=== PATIENT | male | born 1950 | race Two or more races ===

== ENCOUNTER 2024-06-01 06:44 | Inpatient (IN) | payer OTHER, MEDICAID, MEDICARE, SELFPAY ==
[2024-06-01] VITALS (25 sets, daily range): BP systolic 108–175; BP diastolic 41–115; PULSE 57–117; RESP 13–95; TEMP 36.6–38.6; O2SAT 94–98; BMI 30.9; BMI 22.6; BMI 21.7
--- NOTE | 2024-06-01 07:15 | PD.EDADULT ---
ED General RME/HPI General Chief complaint: Flu Like Symptoms Stated complaint: CHILLS, WEAKNESS, NASAL CONGESTION Time Seen by Provider: 06/01/24 07:17 Arrival date/time: 06/01/24 06:44 Limitations: no limitations RME / HPI RME / HPI narrative: DR. FLORIAN MAIN ED EVALUATION: 74 year old male presents to the Emergency Department accompanied by his with complaint of bleeding after removal of chest dialysis catheter onset 3 days ago. Patient also mentions he has chills. Patient had a mild fever of 99.4 F orally. No vision changes. No shortness of breath. PMHx: Hypertension, diabetes, and chronic kidney disease. Dialysis M/W/F, Physical Testing Supervisor: Dr. Glez. No known allergies. Social Hx: No tobacco, alcohol, or substance use. Related Data Home Medications ?Medication ?Instructions ?Recorded ?Confirmed atorvastatin 80 mg tablet 80 mg PO QPM 04/21/23 06/01/24 ferrous sulfate 325 mg (65 mg 325 mg PO TID 04/21/23 04/21/23 iron) tablet furosemide 40 mg tablet 40 mg PO QDAY 04/21/23 06/01/24 gabapentin 300 mg capsule 300 mg PO BID 04/21/23 06/01/24 metoprolol succinate 50 mg 50 mg PO QDAY 04/21/23 06/01/24 tablet,extended release 24 hr B complex-vitamin C-folic acid PO QDAY 06/01/24 amlodipine 10 mg tablet 10 mg PO .QD 06/01/24 06/01/24 aspirin 81 mg tablet,delayed 81 mg PO QDAY 06/01/24 06/01/24 release calcium acetate(phosphat bind) 667 667 mg PO TID 06/01/24 06/01/24 mg capsule glipizide 2.5 mg tablet, extended 2.5 mg PO QAM 06/01/24 06/01/24 release 24 hr Previous Rx's ?Medication ?Instructions ?Recorded blood-glucose meter (Accu-Chek #1 ea 05/06/23 Guide Glucose Meter) insulin glargine 100 unit/mL (3 35 unit (0.35 mL) subcut QPM #15 mL 05/06/23 mL) subcutaneous pen (Lantus Solostar U-100 Insulin) insulin lispro 100 unit/mL 1 sliding scale dose subcut 05/06/23 subcutaneous pen (Admelog SoloStar USEASDIRECTD #15 mL U-100 Insulin lispro) lancets 28 gauge (Comfort EZ #100 ea 05/06/23 Lancets) pen needle, diabetic 31 gauge x #1,200 ea 05/06/23/ (BD Ultra-Fine Mini Pen Needle) blood sugar diagnostic (Accu-Chek #50 ea 05/07/23 Guide test strips) Allergies Allergy/AdvReac Type Severity Reaction Status Date / Time No Known Allergies Allergy Verified 06/01/24 06:48 Review of Systems Review of Systems Systems Reviewed: All systems reviewed, normal except as documented Narrative Review of Systems: GEN: + fever, + chills, no weight loss EYES: No discharge, no visual changes, no pain HEENT: No ear pain, no congestion, no sore throat PULM: No shortness of breath, no cough, no congestion CV: No chest pain, no dyspnea on exertion, no palpitations GI: No nausea, no vomiting, no diarrhea, no pain, no constipation : No frequency, no urgency and no dysuria MUSC/SKEL: No joint pain, no back pain SKIN: No rash. + bleeding on chest dialysis catheter site (see HPI) PSYCH: No hallucinations, no depression HEME/LYMPH: No easy bleeding or bruising tendencies NEURO: No weakness, no headache Past Medical History Past Medical History CARDIAC: Positive Cardiac Disorders (CHF EF 63%), Hypercholesterolemia, Congestive Heart Failure, Hypertension and Hypotension RESPIRATORY: Positive Asthma ENDOCRINE: Positive Diabetes Mellitus Type 2 HEMATOLOGIC: Positive Anemia OTHER HISTORY: Positive Blood Transfusions Social History SMOKING STATUS: Never smoker SUBSTANCE USE: does not use ALCOHOL: Never ED Exam General Limitations: Present no limitations General appearance: Present alert and in no apparent distress Head Head exam: Present atraumatic, normocephalic and normal inspection Eye Eye exam: Present EOMI and conjunctival injection (mild injection of conjunctiva) ENT ENT exam: Present normal exam, normal oropharynx and mucous membranes moist Neck Neck exam: Present normal inspection, full ROM and trachea midline Chest Chest inspection: Present symmetric chest wall rise and other (there are some small blood clots on the site where they removed the dialysis catheter on the left upper chest area, no active bleeding) Respiratory Respiratory exam: Present normal lung sounds bilaterally Cardiovascular Cardiovascular exam: Present regular rate, normal rhythm, normal heart sounds and other (normal S3) Abdominal Exam Abdominal exam: Present soft, normal bowel sounds and hernia (hernia just above the umbilicus) Extremities Exam Extremities exam: Present normal inspection, full ROM and other (left arm fistula with good thrill) Back Exam Back exam: Present normal inspection and full ROM Neurological Exam Neurological exam: Present alert, oriented X3, CN II-XII intact, normal gait and reflexes normal; Absent motor sensory deficit Expanded Neurological Exam Patient oriented to: Present person, place and time Speech: Present fluid speech Motor strength - LUE: 5/5 Motor strength - RUE: 5/5 Motor strength - LLE: 5/5 Motor strength - RLE: 5/5 Psychiatric Psychiatric exam: Present normal affect and normal mood Skin Skin exam: Present warm, dry, intact and normal color Course Course Course Narrative: 0941: Sepsis alert initiated. Orders made at this time are congruent with ED Adult Sepsis Order List. Re-evaluation is to be completed. 1222: Fluids started. 1250: Sepsis reassessment performed consisting of lab review, vitals, physical exam including auscultation of heart, lungs, and visual evaluation of capillary refills, mucosal membranes and extremities. Quality Measures Current suspected stage: sepsis Possible source: unknown Blood cultures ordered: yes Antibiotic ordered: Yes Pertinent labs: 06/01/24 07:55 Lactic Acid 1.7 mMol/L (0.4-2.0) Procalcitonin 0.23 ng/ml (0.0-0.49) sepsis Orders Category Date Time Status Patient Condition Routine Admission 06/01/24 10:22 Ordered Bedside COVID-19 Antigen Test NOW Care 06/01/24 09:43 Active COVID-19 Screening Questionnaire NOW Care 06/01/24 09:20 Active Cut Off Sawyer STAT Care 06/01/24 07:42 Active Continuous Pulse Oximetry STAT Care 06/01/24 07:42 Completed Decision to Admit X1 Care 06/01/24 09:20 Completed EKG (ED ONLY) *Do not use* NOW Care 06/01/24 07:42 Completed Insert IV NOW Care 06/01/24 07:42 Active Intake and Output QSHIFT Care 06/01/24 10:30 Ordered Miscellaneous Nursing Order NOW Care 06/01/24 10:22 Active NPO STAT Care 06/01/24 07:42 Active Notify provider NEEDED Care 06/01/24 10:22 Active Obtain weight NOW Care 06/01/24 10:22 Active Sequential Compression Device QSHIFT Care 06/01/24 10:22 Active Strict Intake and Output Routine Care 06/01/24 07:42 Ordered Consult to Nephrology Stat Cons 06/01/24 09:22 Ordered EKG (ED Only) Stat Exams 06/01/24 07:42 Draft Blood Culture (Lab) Stat Lab 06/01/24 07:50 Received CBC AM DRAW Lab 06/02/24 05:00 Ordered CBC AM DRAW Lab 06/03/24 05:00 Ordered CBC AM DRAW Lab 06/04/24 05:00 Ordered CBC Stat Lab 06/01/24 07:55 Completed CBC Stat Lab 06/01/24 09:19 Completed CMP [Comprehensive Metabolic Panel] AM DRAW Lab 06/02/24 05:00 Ordered CMP [Comprehensive Metabolic Panel] AM DRAW Lab 06/03/24 05:00 Ordered CMP [Comprehensive Metabolic Panel] AM DRAW Lab 06/04/24 05:00 Ordered Comprehensive Metabolic Panel Stat Lab 06/01/24 07:55 Completed Lactate (Lactic Acid) Stat Lab 06/01/24 07:55 Completed Lipid Panel AM DRAW Lab 06/02/24 05:00 Ordered Magnesium AM DRAW Lab 06/02/24 05:00 Ordered Magnesium AM DRAW Lab 06/03/24 05:00 Ordered Magnesium AM DRAW Lab 06/04/24 05:00 Ordered Partial Thromboplastin Time Stat Lab 06/01/24 07:55 Completed Phosphorous AM DRAW Lab 06/02/24 05:00 Ordered Phosphorous AM DRAW Lab 06/03/24 05:00 Ordered Phosphorous AM DRAW Lab 06/04/24 05:00 Ordered Procalcitonin Stat Lab 06/01/24 07:55 Completed Prothrombin Time with INR AM DRAW Lab 06/02/24 05:00 Ordered Prothrombin Time with INR Stat Lab 06/01/24 07:55 Completed Thyroid Stimulating Hormone AM DRAW Lab 06/02/24 05:00 Ordered Urinalysis Routine Lab 06/01/24 11:36 Completed Acetaminophen Tab [Tylenol Tab] Med 06/01/24 10:22 Discontinued 650 mg PO Q6H PRN Acetaminophen Tab [Tylenol Tab] Med 06/01/24 09:47 Discontinued 650 mg PO X1 ONE Dextrose 50% Syr [D50w Syringe Abboject] Med 06/01/24 08:59 Discontinued 50 ml IV X1 ONE Insulin Regular Med 06/01/24 09:30 Discontinued 10 unit IV X1 ONE Ondansetron Inj [Zofran Inj] Med 06/01/24 10:22 Active 4 mg IV Q6H PRN Ondansetron Inj [Zofran Inj] Med 06/01/24 08:59 Discontinued 4 mg IV X1 ONE Piper/Tazo 3.375 gm Premix [Zosyn] Med 06/01/24 07:42 Discontinued 3.375 gm in 50 ml IV X1 Senna [Senokot] Med 06/01/24 10:22 Active 2 tab PO BID PRN Sod Polystyrene Sulfon Susp [Kayexalate Susp] Med 06/01/24 08:59 Discontinued 15 gm PO X1 ONE Sodium Bicarb 8.4% SYR Med 06/01/24 08:59 Discontinued 50 ml IV X1 ONE Sodium Chloride 0.9% 500 ml [Ns] 500 ml Med 06/01/24 09:47 Discontinued IV 999 mls/hr Code Status Routine Oth 06/01/24 10:22 Ordered Oxygen Delivery DAILY RT 06/01/24 10:22 Active Vital Signs Vital signs: Vital Signs Temperature 99.8 F 06/01/24 06:54 Pulse Rate 57 L 06/01/24 06:54 Blood Pressure 164/79 H 06/01/24 06:54 Pulse Oximetry (%) 97 06/01/24 06:54 Oxygen Delivery Method Room Air 06/01/24 06:54 Critical Care Time Critical Care Time Critical Care Time: Yes Total Critical Care Time (min.): 30 Attestation: The high probability of sudden, clinically significant deterioration in the patient?s condition required the highest level of my preparedness to intervene urgently. The services I provided to this patient were to treat and/or prevent clinically significant deterioration. Services included the following: chart data review, reviewing nursing notes and/or old charts, documentation time, healthcare network pricing consultant collaboration regarding findings and treatment options, medication orders and management, direct patient care, vital sign assessments and ordering, interpreting and reviewing diagnostic studies and lab tests. Aggregate critical care time includes only time during which I was engaged in work directly related to the patient?s care, as described above, whether at bedside or elsewhere in the Emergency Department. It did not include time spent performing other reported procedures or the services of residents, students, nurses or physician assistants. Discharge Plan Plan Patient Disposition: Admit Acute Care w/in Hospital Problem List Clinical Impression: Sepsis, Hyperkalemia, Fever, End stage renal disease, Dialysis patient MDM Patient Acuity Narrative: IEunice am scribing for and in the presence of Dr. Florian. Clinical Information Provided by: patient and spouse () Medical Records reviewed [facility] Medical Records additional comments: Reviewed last admission discharge dated 05/07/23, patient admitted for the following: Acute kidney injury superimposed on chronic kidney disease Meds/Rx considered, not ordered None Labs/Rad/Tests considered, not ordered None Chronic Illness/Social Conditions which may negatively complicate care or outcome(s)-explain: None or not applicable EKG EKG Interpretation(s): EKG#1: EKG at 0825 hours. Interpreted by me: sinus rhythm, rate 98, nonspecific T wave abnormality, NJ interval 174, QRS 96, QT/QTc 338/433, P-R-T axis 52 normal, 6, and 74 Labs Labs: Interpreted by me Lab(s) Interpretation(s): Hyperkalemia Imaging Imaging Interpretation(s): Procedure(s): XR chest 2V Accession Number(s): [id number] cc: Jyoti Calixto; Michael Horton MD; Srinivas Valencia MD~ Examination: PA lateral chest 2 views Technique: Upright PA lateral chest 2 views Exam date and time: June 02, 2024, 1048 hrs. Comparison May 06, 2023 Indications: Shortness of breath weakness today Findings: Mild prominence of ventricle Prominent vascular congestion including central vascular enlargement Suspicious for early edema at the lung bases. No lobar pneumonia. Old fracture right fifth rib posteriorly Impression: Suspicious for early heart failure Dictated By: Michael Horton MD Medication Administration(s) Medication Administration History Acetaminophen (Acetaminophen 325 Mg Tablet) 650 mg PO Q6H PRN PRN Reason: Pain Or Fever > 100.3 Stop: 07/01/24 10:21 Amlodipine Besylate (Amlodipine Besylate 5 Mg Tablet) 10 mg PO .QD [facility] Stop: 07/02/24 08:59 Aspirin (Aspirin Ec 81 Mg Tabec) 81 mg PO QDAY [facility] Stop: 07/02/24 08:59 Atorvastatin Calcium (Atorvastatin Calcium 20 Mg Tablet) 80 mg PO QPM [facility]OS[facility] Stop: 07/01/24 20:59 Calcium Acetate (Calcium Acetate 667 Mg Tablet) 667 mg PO TID [facility] Stop: 07/01/24 21:59 Dextrose (Dextrose 50%-Water Inj 50 Ml Syringe) 25 ml IV Q15MIN PRN PRN Reason: BG 50-70 responsive npo pt Stop: 07/01/24 10:27 Dextrose (Dextrose 50%-Water Inj 50 Ml Syringe) 50 ml IV Q15MIN PRN PRN Reason: BG <50 OR BG <70 & pt unresponsive Stop: 07/01/24 10:27 Gabapentin (Gabapentin 300 Mg Capsule) 300 mg PO BID [facility] Stop: 07/01/24 20:59 Glucagon (Glucagon Inj 1 Mg Vial) 1 mg IM Q15MIN PRN PRN Reason: BG <70, and no IV access Piperacillin/Tazobactam/Dextrose (Zosyn) 3.375 gm in 50 mls @ 12.5 mls/hr IV Q12HR [facility] Stop: 06/08/24 20:59 Insulin Human Lispro (Insulin Lispro (Admelog) 1 Unit/0.01 Ml Unit) 0 unit SC AC [facility]; Protocol Stop: 07/01/24 11:29 Last Admin: 06/01/24 12:34 Dose: Not Given Documented By: GM Non-Admin Reason: Contraindicated Comments: PT'S FSBS 92 Metoprolol Succinate (Metoprolol Succinate Xl 25 Mg Tabcr) 50 mg PO QDAY [facility] Stop: 07/01/24 14:44 Ondansetron HCl (Ondansetron Inj 2 Mg/Ml Inj 2 Ml) 4 mg IV Q6H PRN; Protocol PRN Reason: NAUSEA OR VOMITING Stop: 07/01/24 10:21 Pantoprazole Sodium (Pantoprazole 40 Mg Tablet) 40 mg PO QDAY [facility] Stop: 07/02/24 08:59 Sennosides (Senna Tablet) 2 tab PO BID PRN; Protocol PRN Reason: CONSTIPATION Stop: 07/01/24 10:21 Discontinued Medications Acetaminophen (Acetaminophen 325 Mg Tablet) 650 mg PO X1 ONE Stop: 06/01/24 09:48 Last Admin: 06/01/24 10:10 Dose: 650 mg Documented By: GM Acetaminophen (Acetaminophen 325 Mg Tablet) 650 mg PO Q6H PRN PRN Reason: PAIN OR FEVER > 101 Stop: 07/01/24 10:21 Dextrose (Dextrose 50%-Water Inj 50 Ml Syringe) 50 ml IV X1 ONE Stop: 06/01/24 09:00 Last Admin: 06/01/24 09:28 Dose: 50 ml Documented By: KRYSTIAN Piperacillin/Tazobactam/Dextrose (Zosyn) 3.375 gm in 50 mls @ 100 mls/hr IV X1 ONE Stop: 06/01/24 08:11 Last Infusion: 06/01/24 08:32 Dose: Infused Documented By: Admin: 06/01/24 08:01 Dose: 100 mls/hr Documented By: KRYSTIAN Sodium Chloride (Ns) 500 mls @ 999 mls/hr IV .Q31M ONE Stop: 06/01/24 10:17 Last Infusion: 06/01/24 11:31 Dose: Infused Documented By: Admin: 06/01/24 10:13 Dose: 999 mls/hr Documented By: KRYSTIAN Vancomycin HCl/Dextrose (Vancomycin/D5w 1,250 Mg Ivpb) 250 mls @ 120 mls/hr IV X1 ONE Stop: 06/01/24 12:49 Last Admin: 06/01/24 12:29 Dose: 120 mls/hr Documented By: KRYSTIAN Insulin Human Regular (Insulin Hum Regular 1 Unit/0.01 Ml (Per Unit)) 10 unit IV X1 ONE Stop: 06/01/24 09:31 Last Admin: 06/01/24 09:33 Dose: Not Given Documented By: KRYSTIAN Non-Admin Reason: Duplicate Medication on eMAR Ondansetron HCl (Ondansetron Inj 2 Mg/Ml Inj 2 Ml) 4 mg IV X1 ONE; Protocol Stop: 06/01/24 09:00 Last Admin: 06/01/24 09:28 Dose: 4 mg Documented By: KRYSTIAN Pharmacy Consult (Vancomycin Pharmacy To Dose 1 Each Each) 1 each IV QDAY PROSPER Stop: 07/01/24 10:29 Sodium Bicarbonate (Sodium Bicarb Inj 8.4% Syr 50 Ml Syringe) 50 ml IV X1 ONE Stop: 06/01/24 09:00 Last Admin: 06/01/24 09:28 Dose: 50 ml Documented By: KRYSTIAN Sodium Chloride (Sodium Chloride Rt 10% 15 Ml Nebu) 5 ml INH X1 ONE Stop: 06/01/24 10:28 Last Admin: 06/01/24 12:22 Dose: 5 ml Documented By: MARIYA Sodium Polystyrene Sulfonate (Sod Polystyrene Sulfon Susp 15 Gm/60 Ml Btl) 15 gm PO X1 ONE Stop: 06/01/24 09:00 Last Admin: 06/01/24 09:28 Dose: 15 gm Documented By: KRYSTIAN Consultations/Discussions re: Management Consult #1: Date/time: 06/01/24 10:23 am Physician, specialty, service, details: Discussed test HPI, PMHx, lab, radiology results and/or management with hospitalist. Will admit for further evaluation and management. Accepts patient for admission. Diagnosis Differential Diagnosis ED Complaint MDM: sepsis, renal disease, RICARDO
--- NOTE | 2024-06-01 07:21 | PC.NURSE ---
DR. FLORIAN AT BEDSIDE ASSESSING PT.
--- NOTE | 2024-06-01 07:42 | EKG_ITS ---
[facility] Test Date: 2024-06-01 Pat Name: COLBY LEÓN Department: Room: - Gender: Male [employer] Lead: : 1950 Requested By: Zachariah Allison Order Number: [id number] Reading MD: Zachariah Allison Measurements Intervals Diamond Rate: 98 P: 52 CA: 174 QRS: 6 QRSD: 96 T: 74 QT: 338 QTc: 433 Interpretive Statements SINUS RHYTHM NONSPECIFIC T-WAVE ABNORMALITY Compared to ECG 04/25/2023 08:09:51 T-wave abnormality now present Atrial fibrillation no longer present Left bundle-branch block no longer present /store/S0/[id number]/ecg/[id number].pdf
[2024-06-01] MEDS: PIPER/TAZO 3.375 GM PREMIX 3.375 GM/50 ML BAG IV ×2 (08:01→20:38)
[2024-06-01 08:09] LABS: Basophils % (Auto) 0 % (0-2.5); Eosinophils % (Auto) 0 % (0-10); Hemoglobin 18.1 g/dL (13.5-16.0); Immature Granulocytes % (Auto) 0 % (0-0); Immature Granulocytes Auto 0.03 Thou/mm3 (0.00-0.00); Lactate (Lactic Acid) 1.7 mMol/L (0.4-2.0); Lymphocytes # (Auto) 0.3 Thou/mm3 (1.0-4.8); Lymphocytes % (Auto) 3 % (10-50); Mean Corpuscular HGB Conc 32.3 g/dl (31.0-37.0); Mean Corpuscular Hemoglobin 30.7 pg (25.0-35.0); Mean Corpuscular Volume 95 fL (80-100); Monocytes # (Auto) 0.5 Thou/mm3 (0.0-0.8); Monocytes % (Auto) 5 % (0-12); Neutrophils # (Auto) 9.6 Thou/mm3 (1.8-7.7); Neutrophils % (Auto) 92 % (37-80); Nucleated Red Blood Cell % 0 /100 WBC (0); Platelet Count 122 Thou/mm3 (140-440); RDW Standard Deviation 49.9 fL (35.1-43.9); Red Blood Count 5.89 Miln/mm3 (4.50-5.90); White Blood Count 10.4 Thou/mm3 (3.8-10.6)
[2024-06-01 08:38] LABS: Alanine Aminotransferase 29 U/L (10-49); Albumin, Serum 4.8 gm/dL (3.4-4.8); Albumin/Globulin Ratio 1.5 (1.2-2.2); Alkaline Phosphatase 106 U/L (46-116); Anion Gap 9 (7-16); Aspartate Amino Transferase 30 U/L (0-34); BUN/Creatinine Ratio 12 Ratio (12-20); Bilirubin,Total 0.5 mg/dL (0.3-1.2); Blood Urea Nitrogen 55 mg/dL (9-23); Calcium 9.2 mg/dL (8.3-10.6); Calcium (Corrected) 9.2 mg/dL (8.5-10.1); Chloride 108 mMol/L (98-107); Creatinine (Component) 4.6 mg/dL (0.6-1.3); Estimated Creatinine Clearance 11.9 mL/min (>60); Globulin 3.2 gm/dL (2.3-3.5); Glucose 171 mg/dL (74-106); Osmolality,Calculated 300 (275-295); Sodium 141 mMol/L (136-145); eGFR 13 See Note
[2024-06-01 08:42] LABS: INR 1.1 (0.9-1.3); Partial Thromboplastin Time 29.3 Seconds (22.0-36.0); Potassium 6.1 mMol/L (3.4-5.1)
[2024-06-01] MEDS: ONDANSETRON INJ 2 MG/ML INJ 2 ML 4 MG IV (09:28)
[2024-06-01] MEDS: SOD POLYSTYRENE SULFON SUSP 15 GM/60 ML BTL PO (09:28)
[2024-06-01] MEDS: DEXTROSE 50%-WATER INJ 50 ML SYRINGE IV (09:28)
[2024-06-01] MEDS: Sodium Bicarb Inj 8.4% SYR 50 ML SYRINGE IV (09:28)
--- NOTE | 2024-06-01 10:00 | PC.NURSE ---
Addendum entered by Chavez Fortune RN 06/01/24 13:44: @1100- COOL TOWEL REMOVED FROM PT'S FOREHEAD. @1200- COOL TOWEL REPLACED ON PT'S FOREHEAD. @1300- COOL TOWEL REMOVED FROM PT'S FOREHEAD. Original Note: COOL TOWEL PLACED ON PT'S FOREHEAD AT THIS TIME.
[2024-06-01] MEDS: ACETAMINOPHEN 325 MG TABLET 650 MG PO (10:10)
[2024-06-01 10:13] LABS: Basophils % (Auto) 0 % (0-2.5); Eosinophils % (Auto) 0 % (0-10); Hemoglobin 17.5 g/dL (13.5-16.0); Immature Granulocytes % (Auto) 0 % (0-0); Immature Granulocytes Auto 0.03 Thou/mm3 (0.00-0.00); Lymphocytes # (Auto) 0.3 Thou/mm3 (1.0-4.8); Lymphocytes % (Auto) 2 % (10-50); Mean Corpuscular HGB Conc 32.4 g/dl (31.0-37.0); Mean Corpuscular Hemoglobin 30.3 pg (25.0-35.0); Mean Corpuscular Volume 93 fL (80-100); Monocytes # (Auto) 0.3 Thou/mm3 (0.0-0.8); Monocytes % (Auto) 3 % (0-12); Neutrophils % (Auto) 94 % (37-80); Nucleated Red Blood Cell % 0 /100 WBC (0); Platelet Count 125 Thou/mm3 (140-440); RDW Standard Deviation 49.2 fL (35.1-43.9); Red Blood Count 5.78 Miln/mm3 (4.50-5.90); White Blood Count 11.7 Thou/mm3 (3.8-10.6)
[2024-06-01] MEDS: SODIUM CHLORIDE 0.9% 500 ML 500 ML 999 ML IV (10:13)
--- NOTE | 2024-06-01 10:24 | XR_ITS ---
Examination: PA lateral chest 2 views Technique: Upright PA lateral chest 2 views Exam date and time: June 02, 2024, 1048 hrs. Comparison May 06, 2023 Indications: Shortness of breath weakness today Findings: Mild prominence of ventricle Prominent vascular congestion including central vascular enlargement Suspicious for early edema at the lung bases. No lobar pneumonia. Old fracture right fifth rib posteriorly Impression: Suspicious for early heart failure
--- NOTE | 2024-06-01 11:41 | PC.CC ---
Patient is a 74 year-old male who presents to the hospital for a fever. Su CARPIO made [id number] contact with patient. ASW introduced self, role, and reason for visit. Patient appeared alert and oriented to self, location, and situation. Patient was pleasant and engaged in initial assessment. Patient confirmed information on demographics. Patient reports his medical decision maker in the event he is unable to make his own medical deicisons would be his Jacquie Marie . At home patient ambulates independently and completes his own ADLs. Patient does not require any DME. Per patient' he had his dialysis catheter removed on from his chest area and now it is swollen and feels like he has a fever. Patient reports he has been having dialysis done for the past 3 months. Patient receives primary care with Saumya Calixto and uses [facility] for prescription medications. Patient reports upon discharge he plans to return home. financial services associate to follow up with any discharge needs.
[2024-06-01 11:49] LABS: Collection Type, Urine Clean Catch
[2024-06-01 12:02] LABS: Bacteria,Urine Rare; Bilirubin,Urine Negative (Negative); Blood,Urine Trace (Negative); Clarity,Urine Clear (Clear/Hazy); Color,Urine Colorless (Lt Yel-Yel); Glucose, Urine 2+ (Negative); Ketones,Urine Negative (Negative); Leukocyte Esterase,Urine Negative (Negative); Nitrite,Urine Negative (Negative); Protein,Urine 3+ (Neg - Trace); RBC,Urine 12 /hpf (0-3); Specific Gravity,Urine 1.011 (1.001-1.035); Squamous Epithelial Cell,Urine < 1 /hpf (0-5); Urobilinogen,Urine Negative mg/dL (0.0-1.0); WBC,Urine 1 /hpf (0-5)
[2024-06-01 12:02] LABS: Procalcitonin 0.23 ng/ml (0.0-0.49)
[2024-06-01] MEDS: SODIUM CHLORIDE RT 10% 15 ML NEBU 5 ML INH (12:22)
[2024-06-01] MEDS: VANCOMYCIN/D5W 1,250 MG IVPB 250 ML 120 MG IV (12:29)
--- NOTE | 2024-06-01 13:18 | PD.RESHP ---
Documentation for date of: 06/01/24 HPI History of Present Illness History of present illness: The patient is a 74-year-old male past medical history of A-fib with RVR, end-stage renal disease on hemodialysis, HFpEF, diabetes mellitus type 2, hypertension who presents to the ER complaining of Complaint of fever chills and weakness since last night, also complaining of nasal congestions as well as mild cough which was not productive of sputum. Patient had temperature spike to 102F in the ER, sepsis alert was initiated. Patient was also noticed to be bleeding from the site of dialysis catheter, left IJ which was reportedly removed on Sunday, noted blood clots present at the site removal. Dressing was done. The patient got his recent hemodialysis on Sunday, is on [facility] for ESRD on , dialysis via AV fistula on the left arm, fistula in use since last 2 months per patient. Patient had negative bedside COVID and influenza testing. Noted to have mild leukocytosis, polycythemia, thrombocytopenia, chemistry panel shows hyperkalemia potassium 6.1, received hyperkalemia cocktail and Kayexalate in the ER, labs consistent with ESRD, Pro-Jayant. 0.23 urinalysis shows proteinuria, hematuria. Chest x-ray suspicious for early heart failure. PMH: A-fib with RVR, end-stage renal disease on hemodialysis, HFpEF, diabetes mellitus type 2, hypertension FH: Non-contributory. SH: None Social Hx: Denies tobacco, alcohol, or illicit drug use. Review of Systems Review of Systems Systems Reviewed: All systems reviewed, normal except as documented Past Medical History Past Medical History NEUROLOGIC: Negative Seizures CARDIAC: Positive Cardiac Disorders (CHF EF 63%), Hypercholesterolemia, Congestive Heart Failure, Hypertension and Hypotension RESPIRATORY: Positive Asthma; Negative Chronic Obstructive Pulmonary Disease (COPD) GENITOURINARY: Negative Renal Disease ENDOCRINE: Positive Diabetes Mellitus Type 2; Negative Diabetes Mellitus Type 1 HEMATOLOGIC: Positive Anemia; Negative Sickle Cell Disease OTHER HISTORY: Positive Blood Transfusions; Negative Blood Transfusion Reaction or Anesthesia Reactions Family History FAMILY HISTORY: Negative Family Cancer Social History SMOKING STATUS: Never smoker SUBSTANCE USE: does not use Exam Vital Signs Temp Pulse Resp BP Pulse Ox O2 Del Method 101.2 F H 98 18 126/71 98 Room Air 06/01/24 12:43 06/01/24 12:43 06/01/24 12:43 06/01/24 12:43 06/01/24 12:43 06/01/24 12:43 Narrative Exam General: AOx3, cooperative, in mild distress, has a wet towel on his forehead, shivering. Skin: Intact, no cyanosis or edema noted. Surgical gauze dressing over the site of left IJ cath removal is clean and dry. HEENT: Atraumatic/normocephalic, CHRISTIE, neck supple Heart: RRR, S1 and S2 without clicks or murmurs Lungs: Clear on auscultation bilaterally, no difficulty breathing. Abdomen: Soft, nontender. Bowel sounds present . Vascular: Peripheral pulses palpable Neuro: No focal neurological deficits noted. Results: Labs 06/02/24 04:47 06/02/24 04:47 Labs: Short CBC 06/01/24 06/01/24 Range/Units 07:55 09:19 WBC 10.4 11.7 H (3.8-10.6) Thou/mm3 Hgb 18.1 H* 17.5 H (13.5-16.0) g/dL Hct 56.0 H 54.0 H (41.0-53.0) % Plt Count 122 L 125 L (140-440) Thou/mm3 BMP 06/01/24 07:55 Sodium 141 Potassium 6.1 H* Chloride 108 H Carbon Dioxide 24.0 BUN 55 H Creatinine 4.6 H* Glucose 171 H Calcium 9.2 Liver Function 06/01/24 Range/Units 07:55 Total Bilirubin 0.5 (0.3-1.2) mg/dL AST 30 (0-34) U/L ALT 29 (10-49) U/L Alkaline Phosphatase 106 (46-116) U/L Albumin 4.8 (3.4-4.8) gm/dL Urine 06/01/24 Range/Units 11:36 Urine Color Colorless A (Lt Yel-Yel) Urine Clarity Clear (Clear/Hazy) Urine pH 8.0 H (5.0-7.0) Ur Specific [place] 1.011 (1.001-1.035) Urine Protein 3+ A (Neg - Trace) Urine Glucose (UA) 2+ A (Negative) Quality Measures Quality Measures none Advance care planning discussed with:: patient Medications Home Medications and Allergies Home Medications ?Medication ?Instructions ?Recorded ?Confirmed ?Type atorvastatin 80 mg tablet 80 mg PO QPM 04/21/23 06/01/24 History ferrous sulfate 325 mg (65 mg 325 mg PO TID 04/21/23 06/01/24 History iron) tablet Held on 06/01/24. Instructions: Doctor's Order furosemide 40 mg tablet 40 mg PO QDAY 04/21/23 06/01/24 History gabapentin 300 mg capsule 300 mg PO BID 04/21/23 06/01/24 History metoprolol succinate 50 mg 50 mg PO QDAY 04/21/23 06/01/24 History tablet,extended release 24 hr B complex-vitamin C-folic acid 0.8 tab PO DAILY sUPPLEMENT 06/01/24 06/01/24 History amlodipine 10 mg tablet 10 mg PO .QD 06/01/24 06/01/24 History aspirin 81 mg tablet,delayed 81 mg PO QDAY 06/01/24 06/01/24 History release calcium acetate(phosphat bind) 667 667 mg PO TID 06/01/24 06/01/24 History mg capsule Held on 06/01/24. Instructions: As per glipizide 2.5 mg tablet, extended 2.5 mg PO QAM 06/01/24 06/01/24 History release 24 hr Allergies Allergy/AdvReac Type Severity Reaction Status Date / Time No Known Allergies Allergy Verified 06/01/24 06:48 Visit Medications Acetaminophen (Acetaminophen 325 Mg Tablet) 650 mg PO Q6H PRN PRN Reason: PAIN OR FEVER > 101 Stop: 07/01/24 10:21 Dextrose (Dextrose 50%-Water Inj 50 Ml Syringe) 25 ml IV Q15MIN PRN PRN Reason: BG 50-70 responsive npo pt Stop: 07/01/24 10:27 Dextrose (Dextrose 50%-Water Inj 50 Ml Syringe) 50 ml IV Q15MIN PRN PRN Reason: BG <50 OR BG <70 & pt unresponsive Stop: 07/01/24 10:27 Glucagon (Glucagon Inj 1 Mg Vial) 1 mg IM Q15MIN PRN PRN Reason: BG <70, and no IV access Piperacillin/Tazobactam/Dextrose (Zosyn) 3.375 gm in 50 mls @ 12.5 mls/hr IV Q12HR PROSPER Stop: 06/08/24 20:59 Insulin Human Lispro (Insulin Lispro (Admelog) 1 Unit/0.01 Ml Unit) 0 unit SC AC PROSPER; Protocol Stop: 07/01/24 11:29 Last Admin: 06/01/24 12:34 Dose: Not Given Ondansetron HCl (Ondansetron Inj 2 Mg/Ml Inj 2 Ml) 4 mg IV Q6H PRN; Protocol PRN Reason: NAUSEA OR VOMITING Stop: 07/01/24 10:21 Pantoprazole Sodium (Pantoprazole 40 Mg Tablet) 40 mg PO QDAY PROSPER Stop: 07/02/24 08:59 Pharmacy Consult (Vancomycin Pharmacy To Dose 1 Each Each) 1 each IV QDAY PROSPER Stop: 07/01/24 10:29 Sennosides (Senna Tablet) 2 tab PO BID PRN; Protocol PRN Reason: CONSTIPATION Stop: 07/01/24 10:21 Discontinued Medications Acetaminophen (Acetaminophen 325 Mg Tablet) 650 mg PO X1 ONE Stop: 06/01/24 09:48 Last Admin: 06/01/24 10:10 Dose: 650 mg Dextrose (Dextrose 50%-Water Inj 50 Ml Syringe) 50 ml IV X1 ONE Stop: 06/01/24 09:00 Last Admin: 06/01/24 09:28 Dose: 50 ml Piperacillin/Tazobactam/Dextrose (Zosyn) 3.375 gm in 50 mls @ 100 mls/hr IV X1 ONE Stop: 06/01/24 08:11 Last Infusion: 06/01/24 08:32 Dose: Infused Sodium Chloride (Ns) 500 mls @ 999 mls/hr IV .Q31M ONE Stop: 06/01/24 10:17 Last Infusion: 06/01/24 11:31 Dose: Infused Vancomycin HCl/Dextrose (Vancomycin/D5w 1,250 Mg Ivpb) 250 mls @ 120 mls/hr IV X1 ONE Stop: 06/01/24 12:49 Last Admin: 06/01/24 12:29 Dose: 120 mls/hr Insulin Human Regular (Insulin Hum Regular 1 Unit/0.01 Ml (Per Unit)) 10 unit IV X1 ONE Stop: 06/01/24 09:31 Last Admin: 06/01/24 09:33 Dose: Not Given Ondansetron HCl (Ondansetron Inj 2 Mg/Ml Inj 2 Ml) 4 mg IV X1 ONE; Protocol Stop: 06/01/24 09:00 Last Admin: 06/01/24 09:28 Dose: 4 mg Sodium Bicarbonate (Sodium Bicarb Inj 8.4% Syr 50 Ml Syringe) 50 ml IV X1 ONE Stop: 06/01/24 09:00 Last Admin: 06/01/24 09:28 Dose: 50 ml Sodium Chloride (Sodium Chloride Rt 10% 15 Ml Nebu) 5 ml INH X1 ONE Stop: 06/01/24 10:28 Last Admin: 06/01/24 12:22 Dose: 5 ml Sodium Polystyrene Sulfonate (Sod Polystyrene Sulfon Susp 15 Gm/60 Ml Btl) 15 gm PO X1 ONE Stop: 06/01/24 09:00 Last Admin: 06/01/24 09:28 Dose: 15 gm Assessment & Plan Plan The patient is a 74-year-old male past medical history of A-fib with RVR, end-stage renal disease on hemodialysis, HFpEF, diabetes mellitus type 2, hypertension who presents to the ER complaining of Complaint of fever, chills and weakness since last night, also complaining of nasal congestions as well as mild cough which was not productive of sputum. Patient admitted to the medical floor with diagnosis of acute febrile illness likely secondary to viral illness and hyperkalemia secondary to ESRD. #Sepsis #Acute febrile illness #UTI The patient had sudden onset of fever with rigors and chills starting last night, Tmax 101.5, complaining of upper respiratory tract symptoms with cough, nonproductive, denies shortness of breath. Reported dysuria, urinalysis shows some hematuria, no WBCs but rare bacteria, possibly sample taken after antibiotics administered. Sepsis alert was initiated in the ER due to fever and tachycardia and leukocytosis. The patient had negative bedside COVID and flu testing in the ER. ? Continue IV Zosyn, renally dosed ? Follow-up blood culture and urine cultures #Hyperkalemia #History of ESRD on HD M/W/F #Bleeding from site of dialysis cath removal Noted hyperkalemia, EKG shows normal sinus rhythm, no hyperacute T waves or QRS changes noted, of note patient has prior history of A-fib RVR, currently in sinus rhythm. Received hyperkalemia cocktail, sodium bicarb and Kayexalate in the ER. ? Follow repeat renal panel ? Nephrology is Dr Espinosa was consulted, for possible urgent hemodialysis ? Dressing overlying site of dialysis cath removal clean dry #History of hypertension #History of diabetes mellitus #History of A-fib RVR ? Resume home medications. Plan of care discussed with attending Dr. Gio Valencia [id number] Attending Provider Attestation/Addendum I reviewed labs, imaging, EKG, home medications and prior available records. Face to face evaluation was performed by me. I have personally examined the patient and discussed assessment and plan with the IM team. I reviewed the resident note and agree with the plan with exceptions as below. ESRD on hemodialysis Acute febrile illness Hyperkalemia He received IV vancomycin/Zosyn Consulted ID for antibiotic recommendations Sent blood cultures and urine culture Gave medications per hyperkalemia protocol. Follow-up potassium level Consulted nephrology for hemodialysis
--- NOTE | 2024-06-01 13:42 | PC.NURSE ---
ICE PACKS APPLIED UNDER PT'S AXILLARY BILATERALLY AND UNDER PT'S KNEES BILATERALLY AT THIS TIME.
--- NOTE | 2024-06-01 15:10 | PC.NURSE ---
WEAVING INSPECTOR AT BEDSIDE OBTAINING FOR CONSENT FOR HEMODIALYSIS AT THIS TIME.
[2024-06-01 16:09] LABS: Albumin, Serum 4.2 gm/dL (3.4-4.8); Anion Gap 13 (7-16); BUN/Creatinine Ratio 12 Ratio (12-20); Blood Urea Nitrogen 56 mg/dL (9-23); Calcium 8.9 mg/dL (8.3-10.6); Calcium (Corrected) 8.9 mg/dL (8.5-10.1); Carbon Dioxide 23.7 mMol/L (20.0-31.0); Chloride 110 mMol/L (98-107); Creatinine (Component) 4.7 mg/dL (0.6-1.3); Estimated Creatinine Clearance 14.2 mL/min (>60); Osmolality,Calculated 304 (275-295); Potassium 4.2 mMol/L (3.4-5.1); Sodium 147 mMol/L (136-145); eGFR 12 See Note
[2024-06-01 16:16] LABS: Glucose 47 mg/dL (74-106); Phosphorous 0.9 mg/dL (2.4-5.1)
--- NOTE | 2024-06-01 16:40 | PC.NURSE ---
Chavez RUBIO from ER called stating pt glucose was 47 per labs. Pt is alert/oriented no complaints. BS check at this time is 147 mg/dL. Will re check again in 30 mins.
--- NOTE | 2024-06-01 18:23 | PC.NURSE ---
PT STILL AT DIALYSIS AT THIS TIME; EILEEN LODGING MANAGER CALLED AND ASKED TO TRANSPORT PT TO ROOM 352 AFTER DIAYLSIS IS DONE; REPORT ALREADY CALLED TO FLOOR JOANNE MCNAIR RN.
[2024-06-01] MEDS: GABAPENTIN 300 MG CAPSULE PO (20:40)
[2024-06-01] MEDS: ATORVASTATIN CALCIUM 20 MG TABLET 80 MG PO (20:40)
--- NOTE | 2024-06-01 20:50 | PC.NURSE ---
Dr Engel at bedside, discussing with patient and family plan of care. Informed of patient 1 episode of large coffee ground emesis. Placed on NPO, explained.
[2024-06-01] MEDS: PANTOPRAZOLE INJ 40 MG VIAL IV (20:53)
[2024-06-01 21:15] LABS: Hematocrit 51.9 % (41.0-53.0); Hemoglobin 17.3 g/dL (13.5-16.0)
[2024-06-01] MEDS: CALCIUM ACETATE 667 MG TABLET PO (21:57)
[2024-06-02] VITALS (29 sets, daily range): BP systolic 91–149; BP diastolic 42–84; PULSE 75–104; RESP 11–96; TEMP 36.1–37.2; O2SAT 91–99
[2024-06-02 06:08] LABS: Basophils % (Auto) 0 % (0-2.5); Eosinophils % (Auto) 0 % (0-10); Hematocrit 50.1 % (41.0-53.0); Hemoglobin 16.3 g/dL (13.5-16.0); Immature Granulocytes % (Auto) 1 % (0-0); Immature Granulocytes Auto 0.09 Thou/mm3 (0.00-0.00); Lymphocytes # (Auto) 0.3 Thou/mm3 (1.0-4.8); Lymphocytes % (Auto) 2 % (10-50); Mean Corpuscular HGB Conc 32.5 g/dl (31.0-37.0); Mean Corpuscular Hemoglobin 30.8 pg (25.0-35.0); Mean Corpuscular Volume 95 fL (80-100); Monocytes # (Auto) 1.2 Thou/mm3 (0.0-0.8); Monocytes % (Auto) 8 % (0-12); Neutrophils # (Auto) 13.1 Thou/mm3 (1.8-7.7); Neutrophils % (Auto) 89 % (37-80); Nucleated Red Blood Cell % 0 /100 WBC (0); Platelet Count 108 Thou/mm3 (140-440); RDW Standard Deviation 50.4 fL (35.1-43.9); White Blood Count 14.8 Thou/mm3 (3.8-10.6)
[2024-06-02 06:25] LABS: INR 1.2 (0.9-1.3); Prothrombin Time 12.6 Seconds (9.0-12.2)
[2024-06-02 06:37] LABS: Alanine Aminotransferase 43 U/L (10-49); Albumin, Serum 4.1 gm/dL (3.4-4.8); Albumin/Globulin Ratio 1.4 (1.2-2.2); Anion Gap 10 (7-16); Aspartate Amino Transferase 31 U/L (0-34); BUN/Creatinine Ratio 9 Ratio (12-20); Bilirubin,Total 0.7 mg/dL (0.3-1.2); Blood Urea Nitrogen 36 mg/dL (9-23); Calcium 8.7 mg/dL (8.3-10.6); Calcium (Corrected) 8.7 mg/dL (8.5-10.1); Carbon Dioxide 29.1 mMol/L (20.0-31.0); Chloride 100 mMol/L (98-107); Cholesterol 112 mg/dL (132-200); Creatinine (Component) 4.2 mg/dL (0.6-1.3); Estimated Creatinine Clearance 15.2 mL/min (>60); Globulin 2.9 gm/dL (2.3-3.5); Glucose 107 mg/dL (74-106); HDL Cholesterol 54 mg/dL (40-60); Magnesium 1.9 mg/dL (1.6-2.6); Osmolality,Calculated 285 (275-295); Phosphorous 4.6 mg/dL (2.4-5.1); Potassium 5.2 mMol/L (3.4-5.1); Sodium 139 mMol/L (136-145); Triglycerides 79 mg/dL (30-150); eGFR 14 See Note
[2024-06-02 06:38] LABS: Alkaline Phosphatase 101 U/L (46-116); Cardiac Risk Estimate 2.1 RATIO (4.0-6.7); LDL Cholesterol,Calculated 42 mg/dL (0-130); Thyroid Stimulating Hormone 1.22 uIU/mL (0.55-4.78)
--- NOTE | 2024-06-02 08:37 | ECHO_ITS ---
Transthoracic Echo Report Ht (in): 70 Wt (lb): 151 Exam Location: [facility] Status: Inpatient Services Coordinator: CHINA Barreto^^^^ Indications: Procedure Performed: BP: / HR: MEASUREMENTS (Male / Female) Normal Values 2D ECHO LV Diastolic Diameter PLAX 4.1 cm 4.2 - 5.9 / 3.9 - 5.3 cm LV Systolic Diameter PLAX 2.7 cm IVS Diastolic Thickness 1.0 cm 0.6 - 1.0 / 0.6 - 0.9 cm LVPW Diastolic Thickness 1.0 cm 0.6 - 1.0 / 0.6 - 0.9 cm LV Relative Wall Thickness 0.5 LVOT Diameter 1.8 cm Aortic Root Diameter 3.3 cm LA Systolic Diameter LX 3.7 cm 3.0 - 4.0 / 2.7 - 3.8 cm LA Volume Index 26.9 cm?/m? 16 - 28 cm?/m? Ascending Aorta Diameter 3.0 cm DOPPLER AV Peak Velocity 157.5 cm/s AV Peak Gradient 9.9 mmHg AV Mean Gradient 6.0 mmHg AV Velocity Time Integral 30.1 cm AI Peak Velocity 312.0 cm/s AI Peak Gradient 38.9 mmHg AI Pressure Half Time 454.0 ms LVOT Peak Velocity 104.0 cm/s LVOT Peak Gradient 4.3 mmHg LVOT Velocity Time Integral 22.3 cm AV Area Cont Eq vti 1.9 cm? AV Area Cont Eq pk 1.7 cm? MV Peak Velocity 103.0 cm/s MV Peak Gradient 4.2 mmHg MV Mean Velocity 56.6 cm/s MV Mean Gradient 1.0 mmHg MV Area PHT 3.6 cm? Mitral E Point Velocity 70.8 cm/s Mitral A Point Velocity 100.0 cm/s Mitral E to A Ratio 0.7 LV E' Lateral Velocity 7.7 cm/s Mitral E to LV E' Lateral Ratio 9.1 LV E' Septal Velocity 5.4 cm/s Mitral E to LV E' Septal Ratio 13.1 TR Peak Velocity 230.0 cm/s TR Peak Gradient 21.2 mmHg PV Peak Velocity 102.0 cm/s PV Peak Gradient 4.2 mmHg RVOT Peak Velocity 72.4 cm/s FINDINGS Left Ventricle Normal left ventricular size, wall thickness, systolic function with no obvious regional wall motion abnormalities. There is grade I diastolic dysfunction of the left ventricle (impaired relaxation pattern). The left ventricular ejection fraction is normal, estimated at 55-60%. Right Ventricle The right ventricle is normal in size and systolic function. The estimated right ventricular systolic pressure, 22 mmHg. Left Atrium The left atrium is normal by two-dimensional, color flow and Doppler imaging with no structural abnormalities, no thrombus formation present. Right Atrium The right atrium is normal by two-dimensional imaging, color flow and Doppler imaging with no structural abnormalities, no thrombus formation present. Atrial Septum The interatrial septum appears normal with no evidence of a shunt. Aorta The aorta is normal by two-dimensional, color flow and Doppler interrogation. Mitral Valve Trace to mild mitral regurgitation. Mild mitral annular calcification. Aortic Valve Mild aortic valve regurgitation. Findings consistent with vegetation on the aortic valve. Tricuspid Valve There is mild tricuspid valve regurgitation. Pulmonic Valve Trivial pulmonic valve regurgitation. Vessels The pulmonary artery appears normal. The inferior vena cava pulmonary and hepatic veins appear normal. Pericardium The pericardium is normal by two-dimensional imaging. There is no significant pericardial effusion. CONCLUSIONS indication: endocarditis eval Aortic valve appears to show calcification but there is also evidence of small vegetation highly suspicious finding on the aortic valve flopping on both sides consistent with endocarditis There is evidence of mild aortic valve regurgitation not significant. Mitral valve thickening calcification mild mitral regurgitation. Normal-sized left ventricle with preserved left ventricle systolic function ejection fraction 60 to 65%. Kasey Guido (Electronically Signed) Final Date: 02 June 2024 16:10
--- NOTE | 2024-06-02 09:16 | ESPR_ITS ---
Subjective Subjective Interval history: 74 y/o here with GAS (Group A strep) bacteremia. afebrile. line out but has a fistula Exam Vital Signs Temp Pulse Resp BP Pulse Ox O2 Del Method 98.2 F 83 18 135/76 H 93 L Room Air 06/02/24 08:24 06/02/24 09:15 06/02/24 08:24 06/02/24 09:15 06/02/24 08:24 06/02/24 07:56 Narrative Exam benign exam. vietnamese only. L avf noted. old line site in L neck noted. Objective - Internal Medicine Labs 06/02/24 04:47 06/02/24 04:47 Labs: Laboratory Results - last 24 hr 06/01/24 06/01/24 06/01/24 07:55 09:19 11:36 WBC 11.7 H RBC 5.78 Hgb 17.5 H Hct 54.0 H MCV 93 MCH 30.3 MCHC 32.4 RDW Std Deviation 49.2 H Plt Count 125 L Neut % (Auto) 94 H Lymph % (Auto) 2 L [place] % (Auto) 3 Eos % (Auto) 0 Baso % (Auto) 0 Neut # (Auto) 11.0 H Lymph # (Auto) 0.3 L [place] # (Auto) 0.3 Eos # (Auto) 0.0 Baso # (Auto) 0.0 Immature Gran # (Auto) 0.03 H Absolute Nucleated RBC 0.00 Immature Gran % 0 Nucleated RBC % 0 PT INR Sodium Potassium Chloride Carbon Dioxide Anion Gap BUN Creatinine Estim Creat Clear Calc eGFR BUN/Creatinine Ratio Glucose Calculated Osmolality Calcium Corrected Calcium Phosphorus Magnesium Total Bilirubin AST ALT Alkaline Phosphatase Total Protein Albumin Globulin Albumin/Globulin Ratio Triglycerides Cholesterol LDL Cholesterol, Calc HDL Cholesterol Cholesterol/HDL Ratio Procalcitonin 0.23 TSH Ur Collection Type Clean Catch Urine Color Colorless A Urine Clarity Clear Urine pH 8.0 H Ur Specific [place] 1.011 Urine Protein 3+ A Urine Glucose (UA) 2+ A Urine Ketones Negative Urine Blood Trace Urine Nitrite Negative Urine Bilirubin Negative Urine Urobilinogen (Auto) Negative Ur Leukocyte Esterase Negative Urine RBC 12 H Urine WBC 1 Ur Squamous Epith Cells < 1 Urine Bacteria Rare 06/01/24 06/01/24 06/02/24 11:48 21:06 04:47 WBC 14.8 H RBC 5.30 Hgb 17.3 H 16.3 H Hct 51.9 50.1 MCV 95 MCH 30.8 MCHC 32.5 RDW Std Deviation 50.4 H Plt Count 108 L Neut % (Auto) 89 H Lymph % (Auto) 2 L [place] % (Auto) 8 Eos % (Auto) 0 Baso % (Auto) 0 Neut # (Auto) 13.1 H Lymph # (Auto) 0.3 L [place] # (Auto) 1.2 H Eos # (Auto) 0.0 Baso # (Auto) 0.0 Immature Gran # (Auto) 0.09 H Absolute Nucleated RBC 0.00 Immature Gran % 1 H Nucleated RBC % 0 PT 12.6 H INR 1.2 Sodium 147 H 139 Potassium 4.2 D 5.2 H D Chloride 110 H 100 Carbon Dioxide 23.7 29.1 Anion Gap 13 10 BUN 56 H 36 H Creatinine 4.7 H* 4.2 H* D Estim Creat Clear Calc 14.2 L 15.2 L eGFR 12 L* 14 L* BUN/Creatinine Ratio 12 9 L Glucose 47 L* D 107 H D Calculated Osmolality 304 H 285 Calcium 8.9 8.7 Corrected Calcium 8.9 8.7 Phosphorus 0.9 L* 4.6 Magnesium 1.9 Total Bilirubin 0.7 AST 31 ALT 43 Alkaline Phosphatase 101 Total Protein 7.0 Albumin 4.2 D 4.1 Globulin 2.9 Albumin/Globulin Ratio 1.4 Triglycerides 79 Cholesterol 112 L LDL Cholesterol, Calc 42 HDL Cholesterol 54 Cholesterol/HDL Ratio 2.1 L Procalcitonin TSH 1.22 Ur Collection Type Urine Color Urine Clarity Urine pH Ur Specific [place] Urine Protein Urine Glucose (UA) Urine Ketones Urine Blood Urine Nitrite Urine Bilirubin Urine Urobilinogen (Auto) Ur Leukocyte Esterase Urine RBC Urine WBC Ur Squamous Epith Cells Urine Bacteria Assessment & Plan A&P Narrative iv cath bacteremia, group A strep (GAS) ckd 5 dm II htn afib hld ( by meds) will await repeat bc and change to ancef daily and f/u wed. no echo needed. longer rx likely with fistula present. will try to maintain the fistula if we can. will see or review chart on wed. Time Spent With Patient Time: Total time spent is greater than 50% in coordination of care (as documented) at patient's floor/unit and/or counseling patient:
--- NOTE | 2024-06-02 10:09 | PC.SS ---
SS follow up note; Patient is getting treated for sepsis, on IV ABX. Patient will return back home when medically cleared.
--- NOTE | 2024-06-02 11:32 | ESCONSULT_ITS ---
<Statement entered by Wilmar Sunshine MD - 06/04/24 17:10> pt seen with resident. all findings confirmed. HPI Data of Consult Consult date: 06/02/24 Requesting Physician: Memo Powers MD Admitting Provider: Memo Powers MD Attending Provider: Memo Powers MD Primary Care Provider: Jyoti Calixto PA-C Consult Narrative Reason for consult: Group A strep bacteremia History of present illness: Mr. Marie is a 74-year-old male with past medical history of A-fib with RVR, ESRD on hemodialysis with left arm fistula, HFpEF, type 2 diabetes, hypertension who presented to [facility] with the chief complaints of fever like illness with fever chills and weakness along with nasal congestion and mild cough. Patient was noted to be febrile in the emergency department with a temperature of 102 and he was also noted to be bleeding from the left TDC site. Patient was admitted for sepsis secondary to urinary tract infection with viral respiratory infection. Upon initial presentation he was noted to be hyperkalemic requiring hyperkalemia bundle. PMH: A-fib with RVR, end-stage renal disease on hemodialysis, HFpEF, diabetes mellitus type 2, hypertension FH: Non-contributory. SH: None Social Hx: Denies tobacco, alcohol, or illicit drug use. cc:: cc: Memo Powers MD Review of Systems Review of Systems Systems Reviewed: All systems reviewed, normal except as documented Exam Vital Signs Temp Pulse Resp BP Pulse Ox O2 Del Method 98.2 F 104 H 17 137/79 H 93 L Room Air 06/02/24 08:24 06/02/24 11:30 06/02/24 09:21 06/02/24 11:30 06/02/24 08:24 06/02/24 07:56 Narrative Exam General: AOx3, cooperative, in mild distress, seen in dialysis unit. British- speaking. Skin: Intact, no cyanosis or edema noted. Surgical gauze dressing over the site of left IJ cath removal is clean and dry. HEENT: Atraumatic/normocephalic, CHRISTIE, neck supple Heart: RRR, S1 and S2 without clicks or murmurs Lungs: Clear on auscultation bilaterally, no difficulty breathing. Abdomen: Soft, nontender. Bowel sounds present . Vascular: Peripheral pulses palpable. Left arm AV fistula noted Neuro: No focal neurological deficits noted. Results Labs 06/04/24 04:55 06/04/24 04:55 Labs: Short CBC 06/01/24 06/02/24 Range/Units 21:06 04:47 WBC 14.8 H (3.8-10.6) Thou/mm3 Hgb 17.3 H 16.3 H (13.5-16.0) g/dL Hct 51.9 50.1 (41.0-53.0) % Plt Count 108 L (140-440) Thou/mm3 BMP 06/01/24 06/02/24 11:48 04:47 Sodium 147 H 139 Potassium 4.2 D 5.2 H D Chloride 110 H 100 Carbon Dioxide 23.7 29.1 BUN 56 H 36 H Creatinine 4.7 H* 4.2 H* D Glucose 47 L* D 107 H D Calcium 8.9 8.7 Liver Function 06/01/24 06/02/24 Range/Units 11:48 04:47 Total Bilirubin 0.7 (0.3-1.2) mg/dL AST 31 (0-34) U/L ALT 43 (10-49) U/L Alkaline Phosphatase 101 (46-116) U/L Albumin 4.2 D 4.1 (3.4-4.8) gm/dL Urine 06/01/24 Range/Units 11:36 Urine Color Colorless A (Lt Yel-Yel) Urine Clarity Clear (Clear/Hazy) Urine pH 8.0 H (5.0-7.0) Ur Specific [place] 1.011 (1.001-1.035) Urine Protein 3+ A (Neg - Trace) Urine Glucose (UA) 2+ A (Negative) Quality Measures Quality Measures sepsis Current suspected stage: ruled out Possible source: unknown Blood cultures ordered: yes Antibiotic ordered: Yes Advance care planning discussed with:: other Medications Home Medications and Allergies Home Medications ?Medication ?Instructions ?Recorded ?Confirmed ?Type atorvastatin 80 mg tablet 80 mg PO QPM 04/21/23 History ferrous sulfate 325 mg (65 mg 325 mg PO TID 04/21/23 0 06/01/24 History iron) tablet Held on 06/01/24. Instructions: Doctor's Order furosemide 40 mg tablet 40 mg PO QDAY 04/21/2306/01 History gabapentin 300 mg capsule 300 mg PO BID 04/21/2306/01 History metoprolol succinate 50 mg 50 mg PO QDAY 04/21/2305/14 History tablet,extended release 24 hr B complex-vitamin C-folic acid 0.8 tab PO DAILY sUPPLE MENT 06/01/24 06/01/24 History amlodipine 10 mg tablet 10 mg PO .QD 06/01/24 History aspirin 81 mg tablet,delayed 81 mg PO QDAY 06/01/24 History release calcium acetate(phosphat bind) 667 667 mg PO TID 06/0106/01/24 History mg capsule Held on 06/01/24. Instructions: As per glipizide 2.5 mg tablet, extended 2.5 mg PO QAM 06/01/24 History release 24 hr Allergies Allergy/AdvReac Type Severity Reaction Status Date / Time No Known Allergies Allergy Verified 06/01/24 06:48 Visit Medications Acetaminophen (Acetaminophen 325 Mg Tablet) 650 mg PO Q6H PRN PRN Reason: Pain Or Fever > 100.3 Stop: 07/01/24 10:21 Amlodipine Besylate (Amlodipine Besylate 5 Mg Tablet) 10 mg PO DAILY [facility] Stop: 07/02/24 08:59 Aspirin (Aspirin Ec 81 Mg Tabec) 81 mg PO QDAY [facility] Stop: 07/02/24 08:59 Last Admin: 06/02/24 11:07 Dose: Not Given Atorvastatin Calcium (Atorvastatin Calcium 20 Mg Tablet) 80 mg PO QPM [facility] Stop: 07/01/24 20:59 Last Admin: 06/01/24 20:40 Dose: 80 mg Calcium Acetate (Calcium Acetate 667 Mg Tablet) 667 mg PO TID [facility] Stop: 07/01/24 21:59 Last Admin: 06/02/24 06:30 Dose: Not Given Dextrose (Dextrose 50%-Water Inj 50 Ml Syringe) 25 ml IV Q15MIN PRN PRN Reason: BG 50-70 responsive npo pt Stop: 07/01/24 10:27 Dextrose (Dextrose 50%-Water Inj 50 Ml Syringe) 50 ml IV Q15MIN PRN PRN Reason: BG <50 OR BG <70 & pt unresponsive Stop: 07/01/24 10:27 Gabapentin (Gabapentin 300 Mg Capsule) 300 mg PO BID [facility] Stop: 07/01/24 20:59 Last Admin: 06/02/24 11:07 Dose: Not Given Glucagon (Glucagon Inj 1 Mg Vial) 1 mg IM Q15MIN PRN PRN Reason: BG <70, and no IV access Cefazolin Sodium/Dextrose (Ancef Ivpb) 1 gm in 50 mls @ 100 mls/hr IV DAILY@1800 [facility] Stop: 06/09/24 17:59 Insulin Human Lispro (Insulin Lispro (Admelog) 1 Unit/0.01 Ml Unit) 0 unit SC [facility]; Protocol Stop: 07/01/24 11:29 Last Admin: 06/02/24 07:30 Dose: Not Given Metoprolol Succinate (Metoprolol Succinate Xl 25 Mg Tabcr) 50 mg PO QDAY [facility] Stop: 07/01/24 14:44 Ondansetron HCl (Ondansetron Inj 2 Mg/Ml Inj 2 Ml) 4 mg IV Q6H PRN; Protocol PRN Reason: NAUSEA OR VOMITING Stop: 07/01/24 10:21 Pantoprazole Sodium (Pantoprazole Inj 40 Mg Vial) 40 mg IV BID [facility] Stop: 07/01/24 20:59 Last Admin: 06/02/24 11:07 Dose: Not Given Sennosides (Senna Tablet) 2 tab PO BID PRN; Protocol PRN Reason: CONSTIPATION Stop: 07/01/24 10:21 Discontinued Medications Acetaminophen (Acetaminophen 325 Mg Tablet) 650 mg PO X1 ONE Stop: 06/01/24 09:48 Last Admin: 06/01/24 10:10 Dose: 650 mg Acetaminophen (Acetaminophen 325 Mg Tablet) 650 mg PO Q6H PRN PRN Reason: PAIN OR FEVER > 101 Stop: 07/01/24 10:21 Dextrose (Dextrose 50%-Water Inj 50 Ml Syringe) 50 ml IV X1 ONE Stop: 06/01/24 09:00 Last Admin: 06/01/24 09:28 Dose: 50 ml Piperacillin/Tazobactam/Dextrose (Zosyn) 3.375 gm in 50 mls @ 100 mls/hr IV X1 ONE Stop: 06/01/24 08:11 Last Infusion: 06/01/24 08:32 Dose: Infused Sodium Chloride (Ns) 500 mls @ 999 mls/hr IV .Q31M ONE Stop: 06/01/24 10:17 Last Infusion: 06/01/24 11:31 Dose: Infused Piperacillin/Tazobactam/Dextrose (Zosyn) 3.375 gm in 50 mls @ 12.5 mls/hr IV Q12HR [facility] Stop: 06/08/24 20:59 Last Admin: 06/01/24 20:38 Dose: 12.5 mls/hr Vancomycin HCl/Dextrose (Vancomycin/D5w 1,250 Mg Ivpb) 250 mls @ 120 mls/hr IV X1 ONE Stop: 06/01/24 12:49 Last Infusion: 06/01/24 14:34 Dose: Infused Vancomycin/Sodium Chloride (Vancomycin/Ns 1 Gm Ivpb) 200 mls @ 120 mls/hr IV X1 ONE Stop: 06/02/24 13:39 Piperacillin Sod/Tazobactam (Sod 4.5 gm/ Sodium Chloride) 100 mls @ 25 mls/hr IV Q12HR [facility] Stop: 06/09/24 08:59 Last Admin: 06/02/24 11:08 Dose: Not Given Insulin Human Regular (Insulin Hum Regular 1 Unit/0.01 Ml (Per Unit)) 10 unit IV X1 ONE Stop: 06/01/24 09:31 Last Admin: 06/01/24 09:33 Dose: Not Given Ondansetron HCl (Ondansetron Inj 2 Mg/Ml Inj 2 Ml) 4 mg IV X1 ONE; Protocol Stop: 06/01/24 09:00 Last Admin: 06/01/24 09:28 Dose: 4 mg Pantoprazole Sodium (Pantoprazole 40 Mg Tablet) 40 mg PO QDAY [facility] Stop: 07/02/24 08:59 Pantoprazole Sodium (Pantoprazole 40 Mg Tablet) 40 mg PO BID [facility] Stop: 07/01/24 20:59 Pharmacy Consult (Vancomycin Pharmacy To Dose 1 Each Each) 1 each IV QDAY [facility] Stop: 07/01/24 10:29 Pharmacy Consult (Vancomycin Pharmacy To Dose 1 Each Each) 1 each IV QDAY PRN PRN Reason: CONSULT Stop: 07/02/24 08:59 Sodium Bicarbonate (Sodium Bicarb Inj 8.4% Syr 50 Ml Syringe) 50 ml IV X1 ONE Stop: 06/01/24 09:00 Last Admin: 06/01/24 09:28 Dose: 50 ml Sodium Chloride (Sodium Chloride Rt 10% 15 Ml Nebu) 5 ml INH X1 ONE Stop: 06/01/24 10:28 Last Admin: 06/01/24 12:22 Dose: 5 ml Sodium Polystyrene Sulfonate (Sod Polystyrene Sulfon Susp 15 Gm/60 Ml Btl) 15 gm PO X1 ONE Stop: 06/01/24 09:00 Last Admin: 06/01/24 09:28 Dose: 15 gm Assessment & Plan Plan #Group A strep bacteremia 1 out of 2 bottles resulted Negative blood cultures pending Initially on Vanco and Zosyn Antibiotic therapy switched to cefazolin 1 g daily renally dosed No need for cardiac echo exam. Will require prolonged course of therapy due to AV fistula Repeat blood cultures pending. With mild leukocytosis of 14.8 but clinically improving and afebrile #ESRD #Hyperlipidemia #hypertension #Type 2 diabetes insulin-dependent #A-fib with RVR ?Management as per primary team Plan of care discussed with supervising attending Dr. Bita Jones M.D. PGY-3
--- NOTE | 2024-06-02 11:53 | PC.NURSE ---
HD stopped as venous lines trying to clott.
--- NOTE | 2024-06-02 12:00 | ESCONSULT_ITS ---
RE: COLBY LEÓN : 1950 DATE OF CONSULTATION: 06/02/2024 REFERRING PHYSICIAN: 06/02/2024 REFERRING PHYSICIAN: Dr. Powers. REASON FOR CONSULTATION: Group A strep bacteremia, probably IV catheter related. HISTORY OF PRESENT ILLNESS: The patient had an IV catheter removed earlier in the left IJ position. Blood sugars were positive fir GPCs, one of which turned out to be group A strep, the other one was not identified, probably because it is felt to be the same. Repeat blood cultures are pending. They were drawn this morning. We will see what those show. The ones drawn today, we will probably have to wait until at least Sunday anyway He already has had regular hepatitis panel for dialysis that is negative. There are no noted risk factors. He is 74 years of age. He is diabetic, he has hypertension and chronic kidney disease, on dialysis. He has a fistula in his left arm for which he is receiving dialysis today. He is seen in dialysis. ALLERGIES: NONE NOTED. IMMUNIZATIONS: Unavailable. FAMILY HISTORY: Noncontributory. SOCIAL HISTORY: Similar. On exam, the patient speaks primarily Romansh. He has a benign abdomen. He did ask about some other measures, but I am not sure we have anything else we can do for him. He is going to be here for a couple of days, making sure his blood cultures are negative. RECOMMENDATIONS: I will check on him on Sunday superficially. If his blood sugars are negative from today, we may look at rx duration. in the meantime, I will be changing vancomycin and Zosyn to Ancef. Vancomycin and Zosyn would probably work but are more nephrotoxic. DT: 10:05:45 TT: 11:16:00 Ref: [id number] - TID: [id number] MTDClaus
[2024-06-02 12:04] LABS: Triglycerides 108 mg/dL (30-150)
[2024-06-02] MEDS: ACETAMINOPHEN 325 MG TABLET 650 MG PO (12:28)
--- NOTE | 2024-06-02 14:34 | ESPR_ITS ---
Documentation for date of: 06/02/24 Subjective Subjective Interval history: Patient episode of coffee-ground emesis overnight, GI consulted. Patient seen examined at bedside, resting comfortably. Patient endorses some irritation due to being n.p.o. for procedure, as well as fevers overnight. Otherwise feels well, denies chest pain, current nausea/vomiting, shortness of breath. ID consulted for strep pyogenes bacteremia. Plan for EGD due to hematemesis. Exam Vital Signs Temp Pulse Resp BP Pulse Ox O2 Del Method 97.4 F 87 16 103/57 L 91 L Room Air 06/02/24 12:00 06/02/24 12:00 06/02/24 12:00 06/02/24 12:00 06/02/24 12:06/02/24 12:00 Narrative Exam General: AOx3, cooperative, in mild distress. Skin: Intact, no cyanosis or edema noted. Surgical gauze dressing over the site of left IJ cath removal is clean and dry. HEENT: Atraumatic/normocephalic, CHRISTIE, neck supple Heart: RRR, S1 and S2 without clicks or murmurs Lungs: Clear on auscultation bilaterally, no difficulty breathing. Abdomen: Soft, nontender. Bowel sounds present . Vascular: Peripheral pulses palpable Neuro: No focal neurological deficits noted. Objective Labs 06/03/24 05:45 06/03/24 05:45 Labs: Laboratory Results - last 24 hr 06/01/24 06/01/24 06/02/24 11:48 21:06 04:47 WBC 14.8 H RBC 5.30 Hgb 17.3 H 16.3 H Hct 51.9 50.1 MCV 95 MCH 30.8 MCHC 32.5 RDW Std Deviation 50.4 H Plt Count 108 L Neut % (Auto) 89 H Lymph % (Auto) 2 L [place] % (Auto) 8 Eos % (Auto) 0 Baso % (Auto) 0 Neut # (Auto) 13.1 H Lymph # (Auto) 0.3 L [place] # (Auto) 1.2 H Eos # (Auto) 0.0 Baso # (Auto) 0.0 Immature Gran # (Auto) 0.09 H Absolute Nucleated RBC 0.00 Immature Gran % 1 H Nucleated RBC % 0 PT 12.6 H INR 1.2 Sodium 147 H 139 Potassium 4.2 D 5.2 H D Chloride 110 H 100 Carbon Dioxide 23.7 29.1 Anion Gap 13 10 BUN 56 H 36 H Creatinine 4.7 H* 4.2 H* D Estim Creat Clear Calc 14.2 L 15.2 L eGFR 12 L* 14 L* BUN/Creatinine Ratio 12 9 L Glucose 47 L* D 107 H D Calculated Osmolality 304 H 285 Calcium 8.9 8.7 Corrected Calcium 8.9 8.7 Phosphorus 0.9 L* 4.6 Magnesium 1.9 Total Bilirubin 0.7 AST 31 ALT 43 Alkaline Phosphatase 101 Total Protein 7.0 Albumin 4.2 D 4.1 Globulin 2.9 Albumin/Globulin Ratio 1.4 Triglycerides 79 Cholesterol 112 L LDL Cholesterol, Calc 42 HDL Cholesterol 54 Cholesterol/HDL Ratio 2.1 L TSH 1.22 06/02/24 09:52 WBC RBC Hgb Hct MCV MCH MCHC RDW Std Deviation Plt Count Neut % (Auto) Lymph % (Auto) [place] % (Auto) Eos % (Auto) Baso % (Auto) Neut # (Auto) Lymph # (Auto) [place] # (Auto) Eos # (Auto) Baso # (Auto) Immature Gran # (Auto) Absolute Nucleated RBC Immature Gran % Nucleated RBC % PT INR Sodium Potassium Chloride Carbon Dioxide Anion Gap BUN Creatinine Estim Creat Clear Calc eGFR BUN/Creatinine Ratio Glucose Calculated Osmolality Calcium Corrected Calcium Phosphorus Magnesium Total Bilirubin AST ALT Alkaline Phosphatase Total Protein Albumin Globulin Albumin/Globulin Ratio Triglycerides 108 Cholesterol LDL Cholesterol, Calc HDL Cholesterol Cholesterol/HDL Ratio TSH Quality Measures Quality Measures sepsis Current suspected stage: sepsis Possible source: unknown Blood cultures ordered: yes Antibiotic ordered: Yes Advance care planning discussed with:: patient and child Assessment & Plan Assessment Current Active Medications: Generic Name Dose Route Start Last Admin Trade Name Freq PRN Reason Stop Dose Admin Acetaminophen 650 mg 06/01/24 13:41 06/02/24 12:28 Acetaminophen 325 Mg Tablet PO 07/01/24 10:21 650 mg Q6H PRN Administration Pain Or Fever > 100.3 Amlodipine Besylate 10 mg 06/02/24 09:00 06/02/24 09:19 Amlodipine Besylate 5 Mg Tablet PO 07/02/24 08:59 Not Given DAILY PROSPER Aspirin 81 mg 06/02/24 09:00 06/02/24 11:07 Aspirin Ec 81 Mg Tabec PO 07/02/24 08:59 Not Given QDAY [facility] Atorvastatin Calcium 80 mg 06/01/24 21:00 06/01/24 20:40 Atorvastatin Calcium 20 Mg Tablet PO 07/01/24 20:59 80 mg QPM PROSPER Administration Calcium Acetate 667 mg 06/01/24 22:00 06/02/24 06:30 Calcium Acetate 667 Mg Tablet PO 07/01/24 21:59 Not Given TID PROSPER Dextrose 25 ml 06/01/24 10:28 Dextrose 50%-Water Inj 50 Ml Syringe IV 07/01/24 10:27 Q15MIN PRN BG 50-70 responsive npo pt Dextrose 50 ml 06/01/24 10:28 Dextrose 50%-Water Inj 50 Ml Syringe IV 07/01/24 10:27 Q15MIN PRN BG <50 OR BG <70 & pt unresponsive Gabapentin 300 mg 06/01/24 21:00 06/02/24 11:07 Gabapentin 300 Mg Capsule PO 07/01/24 20:59 Not Given BID PROSPER Glucagon 1 mg 06/01/24 10:28 Glucagon Inj 1 Mg Vial IM Q15MIN PRN BG <70, and no IV access Cefazolin Sodium/Dextrose 1 gm in 50 mls @ 100 mls/hr 06/02/24 18:00 Ancef Ivpb IV 06/09/24 17:59 DAILY@1800 [facility] Insulin Human Lispro 0 unit 06/01/24 11:30 06/02/24 07:30 Insulin Lispro (Admelog) 1 Unit/0.01 Ml Unit SC 07/01/24 11:29 Not Given AC PROS[facility] Protocol Metoprolol Succinate 50 mg 06/01/24 14:45 06/02/24 09:18 Metoprolol Succinate Xl 25 Mg Tabcr PO 07/01/24 14:44 Not Given QDAY [facility] Ondansetron HCl 4 mg 06/01/24 10:22 Ondansetron Inj 2 Mg/Ml Inj 2 Ml IV 07/01/24 10:21 Q6H PRN NAUSEA OR VOMITING Protocol Pantoprazole Sodium 40 mg 06/01/24 21:00 06/02/24 11:07 Pantoprazole Inj 40 Mg Vial IV 07/01/24 20:59 Not Given BID [facility] Sennosides 2 tab 06/01/24 10:22 Senna Tablet PO 07/01/24 10:21 BID PRN CONSTIPATION Protocol Plan 74-year-old male past medical history of A-fib with RVR, end-stage renal disease on hemodialysis, HFpEF, diabetes mellitus type 2, hypertension who presents to the ER complaining of Complaint of fever, chills and weakness since last night, also complaining of nasal congestions as well as mild cough which was not productive of sputum. Patient admitted to the medical floor with diagnosis of acute febrile illness likely secondary to viral illness and hyperkalemia secondary to ESRD. #Sepsis #Strep pyogenes bacteremia #UTI The patient had sudden onset of fever with rigors and chills starting last night, Tmax 101.5, complaining of upper respiratory tract symptoms with cough, nonproductive, denies shortness of breath. Reported dysuria, urinalysis shows some hematuria, no WBCs but rare bacteria, possibly sample taken after antibiotics administered. Sepsis alert was initiated in the ER due to fever and tachycardia and leukocytosis. The patient had negative bedside COVID and flu testing in the ER. Blood culture showed strep pyogenes 2/2 bottles. ID consulted. Repeat cultures taken ? Continue IV cefazolin ? Follow-up repeat blood culture and urine cultures - ID consulted, appreciate recommendations #Hematemesis Patient had episode of coffee-ground like emesis overnight. Denies abdominal pain at this time. Hemoglobin stable. - GI consulted, appreciate recommendations - Plan for EGD today - Protonix - Avoid anticoagulation #Hyperkalemia #History of ESRD on HD M// #Bleeding from site of dialysis cath removal Noted hyperkalemia, EKG shows normal sinus rhythm, no hyperacute T waves or QRS changes noted, of note patient has prior history of A-fib RVR, currently in sinus rhythm. Received hyperkalemia cocktail, sodium bicarb and Kayexalate in the ER. ? Follow repeat renal panel ? Nephrology is Dr Espinosa was consulted, for possible urgent hemodialysis ? Dressing overlying site of dialysis cath removal clean dry #History of hypertension #History of diabetes mellitus #History of A-fib RVR ? Resume home medications. DVT prophylaxis: SCDs GI prophylaxis: Protonix Diet: N.p.o. pending EGD Lines: PIV Code status: Full code Plan of care discussed with attending Dr. Gio Fountain MD PGY?1 Attending Provider Attestation/Addendum I reviewed labs, imaging, EKG, home medications and prior available records. Face to face evaluation was performed by me. I have personally examined the patient and discussed assessment and plan with the IM team. I reviewed the resident note and agree with the plan with exceptions as below. Coffee-ground emesis, possible upper GI bleed ESRD on hemodialysis Acute febrile illness Hyperkalemia Leukocytosis Consulted GI. The patient n.p.o. Blood cultures are growing gram-positive cocci in 2/2 bottles. Consulted ID changed antibiotics to cefazolin Trend WBC: Uptrending Potassium improved Consulted nephrology for hemodialysis
[2024-06-02] MEDS: CALCIUM ACETATE 667 MG TABLET PO ×2 (14:44→21:52)
--- NOTE | 2024-06-02 16:45 | PD.IMCONS ---
HPI Data of Consult Requesting Physician: Memo Powers MD Primary Care Provider: Jyoti Calixto PA-C Consult Narrative Reason for consult: Hematemesis History of present illness: 73 years old male admitted with the chills bleeding from the left IJ catheter removal although he has a left AV fistula and is not end-stage renal disease on hemodialysis MWF I been consulted because he had a lot of hematemesis through about 500 cc of coffee-ground material this morning Patient has a history of hypertension diabetes mellitus type 2 chronic kidney disease on hemodialysis MWF and atrial fibrillation with RVR cc:: cc: Memo Powers MD Review of Systems Review of Systems Systems Reviewed: All systems reviewed, normal except as documented Past Medical History Surgical History OTHER SURGICAL HX: As in history of present illness Meds Home Medications and Allergies Home Medications ?Medication ?Instructions ?Recorded ?Confirmed ?Type atorvastatin 80 mg tablet 80 mg PO QPM 04/21/23 06/01/24 History ferrous sulfate 325 mg (65 mg 325 mg PO TID 04/21/23 06/01/24 History iron) tablet Held on 06/01/24. Instructions: Doctor's Order furosemide 40 mg tablet 40 mg PO QDAY 04/21/23 06/01/24 History gabapentin 300 mg capsule 300 mg PO BID 04/21/23 06/01/24 History metoprolol succinate 50 mg 50 mg PO QDAY 04/21/23 06/01/24 History tablet,extended release 24 hr B complex-vitamin C-folic acid 0.8 tab PO DAILY sUPPLEMENT 06/01/24 06/01/24 History amlodipine 10 mg tablet 10 mg PO .QD 06/01/24 06/01/24 History aspirin 81 mg tablet,delayed 81 mg PO QDAY 06/01/24 06/01/24 History release calcium acetate(phosphat bind) 667 667 mg PO TID 06/01/24 06/01/24 History mg capsule Held on 06/01/24. Instructions: As per glipizide 2.5 mg tablet, extended 2.5 mg PO QAM 06/01/24 06/01/24 History release 24 hr Allergies Allergy/AdvReac Type Severity Reaction Status Date / Time No Known Allergies Allergy Verified 06/01/24 06:48 Exam Vital Signs Temp Pulse Resp BP Pulse Ox O2 Del Method 97.0 F 79 18 92/58 L 93 L Room Air 06/02/24 16:00 06/02/24 16:00 06/02/24 16:00 06/02/24 16:00 06/02/24 16:00 06/02/24 16:00 Constitutional Comments: Alert oriented [place]-speaking Routine Respiratory Exam Comments: Scattered rhonchi Routine Abdominal Exam Comments: Soft nontender Results Labs 06/02/24 04:47 06/02/24 04:47 Labs: Short CBC 06/01/24 06/02/24 Range/Units 21:06 04:47 WBC 14.8 H (3.8-10.6) Thou/mm3 Hgb 17.3 H 16.3 H (13.5-16.0) g/dL Hct 51.9 50.1 (41.0-53.0) % Plt Count 108 L (140-440) Thou/mm3 BMP 06/02/24 04:47 Sodium 139 Potassium 5.2 H D Chloride 100 Carbon Dioxide 29.1 BUN 36 H Creatinine 4.2 H* D Glucose 107 H D Calcium 8.7 Liver Function 06/02/24 Range/Units 04:47 Total Bilirubin 0.7 (0.3-1.2) mg/dL AST 31 (0-34) U/L ALT 43 (10-49) U/L Alkaline Phosphatase 101 (46-116) U/L Albumin 4.1 (3.4-4.8) gm/dL Assessment and Plan Additional Assessment & Plan Additional Plan: # Hematemesis etiology uncertain Consent obtained for fiberoptic esophagogastroduodenoscopy with possible therapeutic intervention possible biopsy under intravenous moderate sedation Other medical problems include # End-stage renal disease on hemodialysis MWF # Diabetes mellitus type 2 # Essential hypertension # A-fib RVR Thank you very much for the opportunity to participate in care of this patient
[2024-06-02 17:27] LABS: Hepatitis A Antibody IgM Non Reactive (Non React); Hepatitis B Core Antibody IgM Non Reactive (Non React); Hepatitis B Surface Ab Reactive (Immune) (Immune); Hepatitis B Surface Antigen Non Reactive (Non React); Hepatitis C Antibody Non Reactive (Non React)
[2024-06-02] MEDS: ceFAZolin/D5W 1 GM IVPB 1 GM/50 ML BAG IV (17:37)
[2024-06-02] MEDS: METOCLOPRAMIDE INJ 5 MG/ML VIAL 2 ML IVP (21:43)
[2024-06-02] MEDS: PANTOPRAZOLE INJ 40 MG VIAL IV (21:49)
[2024-06-02] MEDS: GABAPENTIN 300 MG CAPSULE PO (21:52)
[2024-06-02] MEDS: ATORVASTATIN CALCIUM 20 MG TABLET 80 MG PO (21:52)
[2024-06-02] MEDS: INSULIN LISPRO (AdmeLOG) 1 UNIT/0.01 ML UNIT SC (22:00)
[2024-06-02] MEDS: INSULIN GLARGINE (Lantus) 5 UNIT/0.05 ML (PER 5 UNITS) SC (22:02)
[2024-06-03] VITALS (10 sets, daily range): BP systolic 97–132; BP diastolic 61–80; PULSE 62–74; RESP 16–94; TEMP 36.2–37.4; O2SAT 94–98
[2024-06-03] MEDS: CALCIUM ACETATE 667 MG TABLET PO ×3 (05:13→21:54)
[2024-06-03 06:47] LABS: Basophils % (Auto) 0 % (0-2.5); Eosinophils # (Auto) 0.1 Thou/mm3 (0.0-0.5); Eosinophils % (Auto) 2 % (0-10); Hematocrit 53.3 % (41.0-53.0); Hemoglobin 17.4 g/dL (13.5-16.0); Immature Granulocytes % (Auto) 0 % (0-0); Immature Granulocytes Auto 0.03 Thou/mm3 (0.00-0.00); Lymphocytes # (Auto) 0.7 Thou/mm3 (1.0-4.8); Lymphocytes % (Auto) 8 % (10-50); Mean Corpuscular HGB Conc 32.6 g/dl (31.0-37.0); Mean Corpuscular Hemoglobin 30.4 pg (25.0-35.0); Mean Corpuscular Volume 93 fL (80-100); Monocytes # (Auto) 1.3 Thou/mm3 (0.0-0.8); Monocytes % (Auto) 15 % (0-12); Neutrophils # (Auto) 6.3 Thou/mm3 (1.8-7.7); Neutrophils % (Auto) 74 % (37-80); Nucleated Red Blood Cell % 0 /100 WBC (0); Platelet Count 102 Thou/mm3 (140-440); RDW Standard Deviation 49.3 fL (35.1-43.9); Red Blood Count 5.73 Miln/mm3 (4.50-5.90); White Blood Count 8.4 Thou/mm3 (3.8-10.6)
--- NOTE | 2024-06-03 07:17 | ESCONSULT_ITS ---
RE: COLBY LEÓN : 1950 DATE OF CONSULTATION: 06/02/2024 HISTORY OF PRESENT ILLNESS: This patient is a 74-year-old Brazilian- speaking only gentleman with past medical history significant for type 2 diabetes, hypertension, ESRD, on dialysis every Sunday, Sunday, and Sunday since 04/2023, who presented to the emergency room yesterday with fever, chills, and was found with a temperature of 102 Fahrenheit. The patient was admitted for sepsis. While in the emergency room, the patient also had hematemesis of about 500 mL of blood. The patient was hyperkalemic upon admission and also volume overloaded. The patient had an emergency dialysis yesterday. Currently, the patient is doing dialysis; today is his regular day. He is supposed to have an endoscopy sometime today. PAST MEDICAL HISTORY: Atrial fibrillation with RVR, ESRD, hemodialysis, heart failure with preserved ejection fraction, type 2 diabetes, hypertension. SURGICAL HISTORY: AV fistula replacement. CURRENT MEDICATIONS: 1. Acetaminophen. 2. Amlodipine 10 mg daily. 3. Aspirin. 4. Atorvastatin 80 mg at bedtime. 5. Calcium acetate 67 mg p.o. t.i.d. with meals. 6. Cefazolin. 7. Gabapentin 200 mg p.o. b.i.d. 8. Zosyn 3.375 g IV q.12. 9. Vancomycin 1 g IV x1 PHYSICAL EXAMINATION: General: He is awake, alert, and oriented, on dialysis. Vital Signs: Blood pressure of 92/64. Heart rate of 77. HEENT: Anicteric sclerae. Normocephalic. Neck: Supple. No JVD. Chest and Lungs: Symmetrical expansion with good breath sounds. Cardiac: Without murmur. Abdomen: Soft and nontender. Extremities: No edema. LABORATORY DATA: Hemoglobin 16.3, WBC 78704, plate count [id number], sodium 139, potassium 5.2, chloride 100, CO2 of 29.1. BUN 36, creatinine 4.2, glucose 107. ASSESSMENT: 1. End-stage renal disease. 2. Fever, possibly sepsis. 3. Type 2 diabetes. 4. Hypertension. 5. Hematemesis. Rule out acute gastritis. PLAN: The patient is currently on dialysis. We will continue his IV antibiotics. The patient will also undergo endoscopy sometime today. Next dialysis will be on Sunday. DT: 20:02:00 TT: 20:51:00 Ref: [id number] - TID: [id number] MTDD
[2024-06-03 07:21] LABS: Alanine Aminotransferase 35 U/L (10-49); Albumin, Serum 4.2 gm/dL (3.4-4.8); Albumin/Globulin Ratio 1.5 (1.2-2.2); Alkaline Phosphatase 91 U/L (46-116); Anion Gap 13 (7-16); Aspartate Amino Transferase 27 U/L (0-34); BUN/Creatinine Ratio 8 Ratio (12-20); Bilirubin,Total 0.5 mg/dL (0.3-1.2); Blood Urea Nitrogen 43 mg/dL (9-23); Calcium 8.6 mg/dL (8.3-10.6); Calcium (Corrected) 8.6 mg/dL (8.5-10.1); Carbon Dioxide 27.4 mMol/L (20.0-31.0); Chloride 98 mMol/L (98-107); Creatinine (Component) 5.1 mg/dL (0.6-1.3); Estimated Creatinine Clearance 12.5 mL/min (>60); Globulin 2.8 gm/dL (2.3-3.5); Glucose 144 mg/dL (74-106); Magnesium 2.4 mg/dL (1.6-2.6); Osmolality,Calculated 289 (275-295); Potassium 4.4 mMol/L (3.4-5.1); Sodium 138 mMol/L (136-145); eGFR 11 See Note
[2024-06-03] MEDS: INSULIN LISPRO (AdmeLOG) 1 UNIT/0.01 ML UNIT SC ×4 (07:43→17:38)
[2024-06-03] MEDS: METOPROLOL SUCCINATE XL 25 MG TABCR 50 MG PO (08:07)
[2024-06-03] MEDS: GABAPENTIN 300 MG CAPSULE PO ×2 (08:08→21:01)
[2024-06-03] MEDS: ASPIRIN EC 81 MG TABEC PO (08:08)
[2024-06-03] MEDS: amLODIPine BESYLATE 5 MG TABLET 10 MG PO (08:08)
[2024-06-03] MEDS: PANTOPRAZOLE INJ 40 MG VIAL IV ×2 (08:09→21:03)
[2024-06-03] MEDS: METOCLOPRAMIDE INJ 5 MG/ML VIAL 2 ML IVP ×2 (08:09→21:02)
--- NOTE | 2024-06-03 09:14 | EKG_ITS ---
[facility] Test Date: 2024-06-03 Pat Name: COLBY LEÓN Department: [facility] Gender: Male Entry Level Accountant: ARLINE : 1950 Requested By: Srinivas Valencia Order Number: [id number] Reading MD: Srinivas Valencia Measurements Intervals [place] Rate: 68 P: 60 MO: 177 QRS: 129 QRSD: 103 T: 53 QT: 411 QTc: 438 Interpretive Statements SINUS RHYTHM MARKED RIGHT AXIS DEVIATION Compared to ECG 06/01/2024 08:25:13 Right-axis deviation now present T-wave abnormality no longer present /store/S0/[id number].pdf
--- NOTE | 2024-06-03 13:06 | ESPR_ITS ---
Documentation for date of: 06/03/24 Subjective Subjective Interval history: No overnight events. Patient seen and examined at bedside, resting comfortably. Patient denies fevers, chills, chest pain, nausea, vomiting. ID consult for duration antibiotics for infective endocarditis. Consulted cardiology regarding possible DAVE. Following GI recommendations following EGD. Wound care and general surgery consulted for infection at site of previous central line. Exam Vital Signs Temp Pulse Resp BP Pulse Ox O2 Del Method O2 Flow Rate 97.4 F 65 18 112/67 95 Room Air 3 06/03/24 11:48 06/03/24 11:48 06/03/24 11:48 06/03/24 11:48 06/03/24 11:48 06/03/24 11:48 06/02/24 18:20 Narrative Exam General: AOx3, cooperative, comfortable. Skin: Intact, no cyanosis or edema noted. Surgical gauze dressing over the site of left IJ cath removal, clear purulent discharge. HEENT: Atraumatic/normocephalic, CHRISTIE, neck supple Heart: RRR, S1 and S2 without clicks or murmurs Lungs: Clear on auscultation bilaterally, no difficulty breathing. Abdomen: Soft, nontender. Bowel sounds present . Vascular: Peripheral pulses palpable Neuro: No focal neurological deficits noted. Objective Labs 06/04/24 04:55 06/04/24 04:55 Labs: Laboratory Results - last 24 hr 06/02/24 06/03/24 04:47 05:45 WBC 8.4 D RBC 5.73 Hgb 17.4 H Hct 53.3 H MCV 93 MCH 30.4 MCHC 32.6 RDW Std Deviation 49.3 H Plt Count 102 L Neut % (Auto) 74 Lymph % (Auto) 8 L [place] % (Auto) 15 H Eos % (Auto) 2 Baso % (Auto) 0 Neut # (Auto) 6.3 Lymph # (Auto) 0.7 L [place] # (Auto) 1.3 H Eos # (Auto) 0.1 Baso # (Auto) 0.0 Immature Gran # (Auto) 0.03 H Absolute Nucleated RBC 0.00 Immature Gran % 0 Nucleated RBC % 0 Sodium 138 Potassium 4.4 D Chloride 98 Carbon Dioxide 27.4 Anion Gap 13 BUN 43 H Creatinine 5.1 H* D Estim Creat Clear Calc 12.5 L eGFR 11 L* BUN/Creatinine Ratio 8 L Glucose 144 H Calculated Osmolality 289 Calcium 8.6 Corrected Calcium 8.6 Phosphorus 6.0 H Magnesium 2.4 Total Bilirubin 0.5 AST 27 ALT 35 Alkaline Phosphatase 91 Total Protein 7.0 Albumin 4.2 Globulin 2.8 Albumin/Globulin Ratio 1.5 Hepatitis A IgM Ab Non Reactive Hep Bs Antigen Non Reactive Hep Bs Antibody Reactive (Immune) Hep B Core IgM Ab Non Reactive Hepatitis C Antibody Non Reactive Quality Measures Quality Measures sepsis Current suspected stage: sepsis Possible source: unknown Blood cultures ordered: yes Antibiotic ordered: Yes Advance care planning discussed with:: patient and child Assessment & Plan Assessment Current Active Medications: Generic Name Dose Route Start Last Admin Trade Name Freq PRN Reason Stop Dose Admin Acetaminophen 650 mg 06/01/24 13:41 06/02/24 12:28 Acetaminophen 325 Mg Tablet PO 07/01/24 10:21 650 mg Q6H PRN Administration Pain Or Fever > 100.3 Amlodipine Besylate 10 mg 06/02/24 09:00 06/03/24 08:08 Amlodipine Besylate 5 Mg Tablet PO 07/02/24 08:59 10 mg DAILY PROSPER Administration Aspirin 81 mg 06/02/24 09:00 06/03/24 08:08 Aspirin Ec 81 Mg Tabec PO 07/02/24 08:59 81 mg QDAY PROSPER Administration Atorvastatin Calcium 80 mg 06/01/24 21:00 06/02/24 21:52 Atorvastatin Calcium 20 Mg Tablet PO 07/01/24 20:59 80 mg QPM PROSPER Administration Calcium Acetate 667 mg 06/01/24 22:00 06/03/24 05:13 Calcium Acetate 667 Mg Tablet PO 07/01/24 21:59 667 mg TID PROSPER Administration Dextrose 25 ml 06/01/24 10:28 Dextrose 50%-Water Inj 50 Ml Syringe IV 07/01/24 10:27 Q15MIN PRN BG 50-70 responsive npo pt Dextrose 50 ml 06/01/24 10:28 Dextrose 50%-Water Inj 50 Ml Syringe IV 07/01/24 10:27 Q15MIN PRN BG <50 OR BG <70 & pt unresponsive Gabapentin 300 mg 06/01/24 21:00 06/03/24 08:08 Gabapentin 300 Mg Capsule PO 07/01/24 20:59 300 mg BID PROSPER Administration Glucagon 1 mg 06/01/24 10:28 Glucagon Inj 1 Mg Vial IM Q15MIN PRN BG <70, and no IV access Cefazolin Sodium/Dextrose 1 gm in 50 mls @ 100 mls/hr 06/02/24 18:00 06/02/24 17:37 Ancef Ivpb IV 06/09/24 17:59 100 mls/hr DAILY@1800 PROSPER Administration Insulin Glargine 5 unit 06/03/24 21:00 Insulin Glargine (Lantus) 5 Unit/0.05 Ml (Per 5 Units) SC 07/03/24 20:59 HS PROSPER Insulin Human Lispro 0 unit 06/01/24 11:30 06/03/24 12:15 Insulin Lispro (Admelog) 1 Unit/0.01 Ml Unit SC 07/01/24 11:29 4 unit AC PROSPER Administration Protocol Metoclopramide HCl 5 mg 06/02/24 21:00 06/03/24 08:09 Metoclopramide Inj 5 Mg/Ml Vial 2 Ml IVP 07/02/24 20:59 5 mg BID PROSPER Administration Protocol Metoprolol Succinate 50 mg 06/01/24 14:45 06/03/24 08:07 Metoprolol Succinate Xl 25 Mg Tabcr PO 07/01/24 14:44 50 mg QDAY PROSPER Administration Ondansetron HCl 4 mg 06/01/24 10:22 Ondansetron Inj 2 Mg/Ml Inj 2 Ml IV 07/01/24 10:21 Q6H PRN NAUSEA OR VOMITING Protocol Pantoprazole Sodium 40 mg 06/01/24 21:00 06/03/24 08:09 Pantoprazole Inj 40 Mg Vial IV 07/01/24 20:59 40 mg BID PROSPER Administration Sennosides 2 tab 06/01/24 10:22 Senna Tablet PO 07/01/24 10:21 BID PRN CONSTIPATION Protocol Plan 74-year-old male past medical history of A-fib with RVR, end-stage renal disease on hemodialysis, HFpEF, diabetes mellitus type 2, hypertension who presents to the ER complaining of Complaint of fever, chills and weakness since last night, also complaining of nasal congestions as well as mild cough which was not productive of sputum. Patient admitted to the medical floor with diagnosis of acute febrile illness likely secondary to viral illness and hyperkalemia secondary to ESRD. #Sepsis #Strep pyogenes bacteremia #Infective endocarditis #UTI The patient had sudden onset of fever with rigors and chills starting last night, Tmax 101.5, complaining of upper respiratory tract symptoms with cough, nonproductive, denies shortness of breath. Reported dysuria, urinalysis shows some hematuria, no WBCs but rare bacteria, possibly sample taken after antibiotics administered. Sepsis alert was initiated in the ER due to fever and tachycardia and leukocytosis. The patient had negative bedside COVID and flu testing in the ER. Blood culture showed strep pyogenes 2/2 bottles. ID consulted. Repeat cultures taken. Echo showed pattern consistent with aortic valve vegetations. Cardiology consulted regarding possible DAVE. ? Continue IV cefazolin ? Follow-up repeat blood culture and urine cultures - ID consulted, appreciate recommendations - Cardiology consulted, appreciate recommendations #Hematemesis Patient had episode of coffee-ground like emesis overnight. Denies abdominal pain at this time. Hemoglobin stable. Patient received EGD which showed gastritis with hemorrhage and nonbleeding ulcer. - GI consulted, appreciate recommendations - Reglan 5 mg every 12 hours - Protonix 40 mg IV twice daily - Avoid anticoagulation - PUD diet #Hyperkalemia #History of ESRD on HD M/W/ #Bleeding from site of dialysis cath removal Noted hyperkalemia, EKG shows normal sinus rhythm, no hyperacute T waves or QRS changes noted, of note patient has prior history of A-fib RVR, currently in sinus rhythm. Received hyperkalemia cocktail, sodium bicarb and Kayexalate in the ER. ? Follow repeat renal panel ? Nephrology is Dr Espinosa was consulted, for possible urgent hemodialysis ? Dressing overlying site of dialysis cath removal clean dry #History of hypertension #History of diabetes mellitus #History of A-fib RVR ? Resume home medications. - Lantus 5 units daily - ISS DVT prophylaxis: SCDs GI prophylaxis: Protonix Diet: PUD diet Lines: PIV Code status: Full code Plan of care discussed with attending Dr. Gio Fountain MD PGY?1 Attending Provider Attestation/Addendum I reviewed labs, imaging, EKG, home medications and prior available records. Face to face evaluation was performed by me. I have personally examined the patient and discussed assessment and plan with the IM team. I reviewed the resident note and agree with the plan with exceptions as below. Infective endocarditis Coffee-ground emesis, possible upper GI bleed ESRD on hemodialysis Acute febrile illness Hyperkalemia, resolved Leukocytosis Consulted GI. Status post EGD that showed hemorrhagic gastritis. Continue Protonix Blood cultures are growing gram-positive cocci in 2/2 bottles. Identified as Streptococcus group A. Consulted ID: Changed antibiotics to cefazolin Repeated blood culture: Negative to date Transthoracic echocardiogram showed possible vegetation. EF 65%. Consulted cardiology: Recommended DAVE Trend WBC: Downtrending Consulted nephrology for hemodialysis
--- NOTE | 2024-06-03 14:49 | PC.SS ---
rounding: Patient will need supervisor long goods i.v. antibiotics for endocarditis. Pending ID rec's. Physician states patient can receive this during his dialysis session. Patient has dialysis every M/W/F with Dr. Espinosa
--- NOTE | 2024-06-03 15:01 | ESPR_ITS ---
RE: COLBY LEÓN : 1950 DATE OF SERVICE: 06/03/2024 HISTORY OF PRESENT ILLNESS: He is a 74-year-old , Vietnamese-speaking only gentleman with type 2 diabetes, hypertension, ESRD on dialysis every Sunday, Sunday, and Sunday since 04/2023, who presented to the emergency room with fever, chills, and hypokalemia. The patient was admitted for sepsis. However, while in the emergency room, he had a hematemesis of about 500 mL of blood. He had dialysis yesterday and also had an EGD yesterday. Gastritis with hemorrhage was found by EGD. He was started on IV Protonix 40 mg b.i.d. He is doing much better. He denies any episode of hematemesis. MEDICATIONS: 1. Amlodipine 10 mg daily. 2. Acetaminophen. 3. Aspirin. 4. Calcium acetate. 5. Cefazolin. 6. Gabapentin. 7. Insulin. 8. Bispro. 9. Metoprolol. PHYSICAL EXAMINATION: Vital Signs: Blood pressure of 112/67, heart rate of 65. HEENT: Anicteric sclerae. Normocephalic. Neck: Supple. No JVD. Chest and Lungs: Symmetrical expansion with clear breath sounds. Heart: No murmur. Abdomen: Soft and intact. Extremities: No edema. LABORATORY DATA: Hemoglobin 17.1, WBC 8400, platelet count 102,000. Sodium 138, potassium 4.4, chloride 92, CO2 27.4, BUN 43, creatinine 5.1, calcium 8.6, phosphorus 6. ASSESSMENT: 1. End-stage renal disease 2. Acute gastritis 3. Hypertension 4. Type 2 diabetes 5. Fever 6. Rule out sepsis PLAN: I will discontinue his aspirin. Continue IV Protonix 40 mg b.i.d. and also dialyze him again tomorrow which is his regular day anointing. DT: 13:59:12 TT: 15:00:00 Ref: [id number] - TID: [id number] MTDD
[2024-06-03] MEDS: ceFAZolin/D5W 1 GM IVPB 1 GM/50 ML BAG IV (17:29)
--- NOTE | 2024-06-03 19:13 | PD.IMPROG ---
Documentation for date of: 06/03/24 Subjective Subjective Interval history: No further hematemesis Hemoglobin hematocrit 17.4 and 53.2 Exam Vital Signs Temp Pulse Resp BP Pulse Ox O2 Del Method O2 Flow Rate 97.2 F 71 18 132/70 H 94 L Room Air 3 06/03/24 16:00 06/03/24 16:00 06/03/24 16:00 06/03/24 16:00 06/03/24 16:00 06/03/24 16:00 06/02/24 18:20 Objective Labs 06/03/24 05:45 06/03/24 05:45 Labs: Laboratory Results - last 24 hr 06/03/24 05:45 WBC 8.4 D RBC 5.73 Hgb 17.4 H Hct 53.3 H MCV 93 MCH 30.4 MCHC 32.6 RDW Std Deviation 49.3 H Plt Count 102 L Neut % (Auto) 74 Lymph % (Auto) 8 L [place] % (Auto) 15 H Eos % (Auto) 2 Baso % (Auto) 0 Neut # (Auto) 6.3 Lymph # (Auto) 0.7 L [place] # (Auto) 1.3 H Eos # (Auto) 0.1 Baso # (Auto) 0.0 Immature Gran # (Auto) 0.03 H Absolute Nucleated RBC 0.00 Immature Gran % 0 Nucleated RBC % 0 Sodium 138 Potassium 4.4 D Chloride 98 Carbon Dioxide 27.4 Anion Gap 13 BUN 43 H Creatinine 5.1 H* D Estim Creat Clear Calc 12.5 L eGFR 11 L* BUN/Creatinine Ratio 8 L Glucose 144 H Calculated Osmolality 289 Calcium 8.6 Corrected Calcium 8.6 Phosphorus 6.0 H Magnesium 2.4 Total Bilirubin 0.5 AST 27 ALT 35 Alkaline Phosphatase 91 Total Protein 7.0 Albumin 4.2 Globulin 2.8 Albumin/Globulin Ratio 1.5 Impressions Impression: # Duodenitis # Shallow duodenal ulcer # Gastritis Continue current management Assessment & Plan A&P Narrative # Hematemesis etiology uncertain Consent obtained for fiberoptic esophagogastroduodenoscopy with possible therapeutic intervention possible biopsy under intravenous moderate sedation Other medical problems include # End-stage renal disease on hemodialysis MWF # Diabetes mellitus type 2 # Essential hypertension # A-fib RVR Thank you very much for the opportunity to participate in care of this patient Time Spent With Patient Time: Total time spent is greater than 50% in coordination of care (as documented) at patient's floor/unit and/or counseling patient:
--- NOTE | 2024-06-03 20:17 | PD.RESCONSUL ---
HPI Data of Consult Patient: new to practice Requesting Physician: Memo Powers MD Admitting Provider: Memo Powers MD Attending Provider: Memo Powers MD Primary Care Provider: Jyoti Calixto PA-C Consult Narrative Reason for consult: endocarditis History of present illness: 74-year-old male past medical history of A-fib with RVR, end-stage renal disease on hemodialysis, HFpEF, diabetes mellitus type 2, hypertension who presents to the ER with a chief complaint of fever, chills and weakness, and URI symptoms. Patient had temperature [id number] in the ER, sepsis alert was initiated. Patient was also noticed to be bleeding from the site of dialysis catheter, left IJ which was reportedly removed on Sunday, noted blood clots present at the site removal. The patient got his recent hemodialysis on Sunday, is on PERSONAL DEVELOPMENT EDUCATOR for ESRD on //, dialysis via AV fistula on the left arm, fistula in use since last 2 months per patient. Patient had negative bedside COVID and influenza testing. Cardiology consulted due to concern for endocarditis. Patient seen and examined today. No complains, daughter at bedside. Denies chest pain, SOB, lightheadedness or palpitations. cc:: cc: Memo Powers MD Exam Vital Signs Temp Pulse Resp BP Pulse Ox O2 Del Method O2 Flow Rate 97.2 F 71 18 132/70 H 94 L Room Air 3 06/03/24 16:00 06/03/24 16:00 06/03/24 16:00 06/03/24 16:00 06/03/24 16:00 06/03/24 16:00 06/02/24 18:20 Narrative Exam General: AOx3, cooperative, comfortable. Skin: Intact, no cyanosis or edema noted. HEENT: Atraumatic/normocephalic, CHRISTIE, neck supple Heart: RRR, S1 and S2 without clicks or murmurs Lungs: Clear on auscultation bilaterally, no difficulty breathing. Abdomen: Soft, nontender. Bowel sounds present . Vascular: Peripheral pulses palpable Neuro: No focal neurological deficits noted. Results Labs 06/04/24 04:55 06/04/24 04:55 Labs: Short CBC 06/03/24 Range/Units 05:45 WBC 8.4 D (3.8-10.6) Thou/mm3 Hgb 17.4 H (13.5-16.0) g/dL Hct 53.3 H (41.0-53.0) % Plt Count 102 L (140-440) Thou/mm3 [facility] 06/03/24 05:45 Sodium 138 Potassium 4.4 D Chloride 98 Carbon Dioxide 27.4 BUN 43 H Creatinine 5.1 H* D Glucose 144 H Calcium 8.6 Liver Function 06/03/24 Range/Units 05:45 Total Bilirubin 0.5 (0.3-1.2) mg/dL AST 27 (0-34) U/L ALT 35 (10-49) U/L Alkaline Phosphatase 91 (46-116) U/L Albumin 4.2 (3.4-4.8) gm/dL Quality Measures Quality Measures sepsis Current suspected stage: sepsis Possible source: unknown Blood cultures ordered: yes Antibiotic ordered: Yes Advance care planning discussed with:: patient and child Medications Home Medications and Allergies Home Medications ?Medication ?Instructions ?Recorded ?Confirmed ?Type atorvastatin 80 mg tablet 80 mg PO QPM 04/21/23 06/01/24 History ferrous sulfate 325 mg (65 mg 325 mg PO TID 04/21/23 06/01/24 History iron) tablet Held on 06/01/24. Instructions: Doctor's Order furosemide 40 mg tablet 40 mg PO QDAY 04/21/23 06/01/24 History gabapentin 300 mg capsule 300 mg PO BID 04/21/23 06/01/24 History metoprolol succinate 50 mg 50 mg PO QDAY 04/21/23 06/01/24 History tablet,extended release 24 hr B complex-vitamin C-folic acid 0.8 tab PO DAILY sUPPLEMENT 06/01/24 06/01/24 History amlodipine 10 mg tablet 10 mg PO .QD 06/01/24 06/01/24 History aspirin 81 mg tablet,delayed 81 mg PO QDAY 06/01/24 06/01/24 History release calcium acetate(phosphat bind) 667 667 mg PO TID 06/01/24 06/01/24 History mg capsule Held on 06/01/24. Instructions: As per glipizide 2.5 mg tablet, extended 2.5 mg PO QAM 06/01/24 06/01/24 History release 24 hr Allergies Allergy/AdvReac Type Severity Reaction Status Date / Time No Known Allergies Allergy Verified 06/01/24 06:48 Visit Medications Acetaminophen (Acetaminophen 325 Mg Tablet) 650 mg PO Q6H PRN PRN Reason: Pain Or Fever > 100.3 Stop: 07/01/24 10:21 Last Admin: 06/02/24 12:28 Dose: 650 mg Amlodipine Besylate (Amlodipine Besylate 5 Mg Tablet) 10 mg PO DAILY [facility] Stop: 07/02/24 08:59 Last Admin: 06/03/24 08:08 Dose: 10 mg Atorvastatin Calcium (Atorvastatin Calcium 20 Mg Tablet) 80 mg PO QPM PROSPER Stop: 07/01/24 20:59 Last Admin: 06/02/24 21:52 Dose: 80 mg Calcium Acetate (Calcium Acetate 667 Mg Tablet) 667 mg PO TID [facility] Stop: 07/01/24 21:59 Last Admin: 06/03/24 14:44 Dose: 667 mg Dextrose (Dextrose 50%-Water Inj 50 Ml Syringe) 25 ml IV Q15MIN PRN PRN Reason: BG 50-70 responsive npo pt Stop: 07/01/24 10:27 Dextrose (Dextrose 50%-Water Inj 50 Ml Syringe) 50 ml IV Q15MIN PRN PRN Reason: BG <50 OR BG <70 & pt unresponsive Stop: 07/01/24 10:27 Gabapentin (Gabapentin 300 Mg Capsule) 300 mg PO BID [facility] Stop: 07/01/24 20:59 Last Admin: 06/03/24 08:08 Dose: 300 mg Glucagon (Glucagon Inj 1 Mg Vial) 1 mg IM Q15MIN PRN PRN Reason: BG <70, and no IV access Cefazolin Sodium/Dextrose (Ancef Ivpb) 1 gm in 50 mls @ 100 mls/hr IV DAILY@1800 [facility] Stop: 06/09/24 17:59 Last Admin: 06/03/24 17:29 Dose: 100 mls/hr Insulin Glargine (Insulin Glargine (Lantus) 5 Unit/0.05 Ml (Per 5 Units)) 5 unit SC HS [facility] Stop: 07/03/24 20:59 Insulin Human Lispro (Insulin Lispro (Admelog) 1 Unit/0.01 Ml Unit) 0 unit SC AC [facility]; Protocol Stop: 07/01/24 11:29 Last Admin: 06/03/24 17:38 Dose: 1 unit Metoclopramide HCl (Metoclopramide Inj 5 Mg/Ml Vial 2 Ml) 5 mg IVP BID [facility]; Protocol Stop: 07/02/24 20:59 Last Admin: 06/03/24 08:09 Dose: 5 mg Metoprolol Succinate (Metoprolol Succinate Xl 25 Mg Tabcr) 50 mg PO QDAY [facility] Stop: 07/01/24 14:44 Last Admin: 06/03/24 08:07 Dose: 50 mg Ondansetron HCl (Ondansetron Inj 2 Mg/Ml Inj 2 Ml) 4 mg IV Q6H PRN; Protocol PRN Reason: NAUSEA OR VOMITING Stop: 07/01/24 10:21 Pantoprazole Sodium (Pantoprazole Inj 40 Mg Vial) 40 mg IV BID [facility] Stop: 07/01/24 20:59 Last Admin: 06/03/24 08:09 Dose: 40 mg Sennosides (Senna Tablet) 2 tab PO BID PRN; Protocol PRN Reason: CONSTIPATION Stop: 07/01/24 10:21 Discontinued Medications Acetaminophen (Acetaminophen 325 Mg Tablet) 650 mg PO X1 ONE Stop: 06/01/24 09:48 Last Admin: 06/01/24 10:10 Dose: 650 mg Acetaminophen (Acetaminophen 325 Mg Tablet) 650 mg PO Q6H PRN PRN Reason: PAIN OR FEVER > 101 Stop: 07/01/24 10:21 Aspirin (Aspirin Ec 81 Mg Tabec) 81 mg PO QDAY [facility] Stop: 07/02/24 08:59 Last Admin: 06/03/24 08:08 Dose: 81 mg Dextrose (Dextrose 50%-Water Inj 50 Ml Syringe) 50 ml IV X1 ONE Stop: 06/01/24 09:00 Last Admin: 06/01/24 09:28 Dose: 50 ml Diphenhydramine HCl (Diphenhydramine Inj 50 Mg/Ml Vial) 25 mg IV PRNMRX1 PRN PRN Reason: MODERATE SEDATION Stop: 06/02/24 20:08 Fentanyl Citrate (Fentanyl Cit Inj 50 Mcg/Ml Amp 2ml) 50 mcg IV Q2M PRN PRN Reason: MODERATE SEDATION Stop: 06/02/24 20:08 Piperacillin/Tazobactam/Dextrose (Zosyn) 3.375 gm in 50 mls @ 100 mls/hr IV X1 ONE Stop: 06/01/24 08:11 Last Infusion: 06/01/24 08:32 Dose: Infused Sodium Chloride (Ns) 500 mls @ 999 mls/hr IV .Q31M ONE Stop: 06/01/24 10:17 Last Infusion: 06/01/24 11:31 Dose: Infused Piperacillin/Tazobactam/Dextrose (Zosyn) 3.375 gm in 50 mls @ 12.5 mls/hr IV Q12HR PROSPER Stop: 06/08/24 20:59 Last Admin: 06/01/24 20:38 Dose: 12.5 mls/hr Vancomycin HCl/Dextrose (Vancomycin/D5w 1,250 Mg Ivpb) 250 mls @ 120 mls/hr IV X1 ONE Stop: 06/01/24 12:49 Last Infusion: 06/01/24 14:34 Dose: Infused Vancomycin/Sodium Chloride (Vancomycin/Ns 1 Gm Ivpb) 200 mls @ 120 mls/hr IV X1 ONE Stop: 06/02/24 13:39 Piperacillin Sod/Tazobactam (Sod 4.5 gm/ Sodium Chloride) 100 mls @ 25 mls/hr IV Q12HR PROSPER Stop: 06/09/24 08:59 Last Admin: 06/02/24 11:08 Dose: Not Given Insulin Glargine (Insulin Glargine (Lantus) 5 Unit/0.05 Ml (Per 5 Units)) 5 unit SC X1 ONE Stop: 06/02/24 21:46 Last Admin: 06/02/24 22:02 Dose: 5 unit Insulin Human Regular (Insulin Hum Regular 1 Unit/0.01 Ml (Per Unit)) 10 unit IV X1 ONE Stop: 06/01/24 09:31 Last Admin: 06/01/24 09:33 Dose: Not Given Midazolam HCl (Midazolam Inj 1 Mg/Ml Vial 2 Ml) 2 mg IV Q2M PRN PRN Reason: Moderate Sedation Stop: 06/02/24 20:08 Ondansetron HCl (Ondansetron Inj 2 Mg/Ml Inj 2 Ml) 4 mg IV X1 ONE; Protocol Stop: 06/01/24 09:00 Last Admin: 06/01/24 09:28 Dose: 4 mg Pantoprazole Sodium (Pantoprazole 40 Mg Tablet) 40 mg PO QDAY PROSPER Stop: 07/02/24 08:59 Pantoprazole Sodium (Pantoprazole 40 Mg Tablet) 40 mg PO BID PROSPER Stop: 07/01/24 20:59 Pharmacy Consult (Vancomycin Pharmacy To Dose 1 Each Each) 1 each IV QDAY PROSPER Stop: 07/01/24 10:29 Pharmacy Consult (Vancomycin Pharmacy To Dose 1 Each Each) 1 each IV QDAY PRN PRN Reason: CONSULT Stop: 07/02/24 08:59 Sodium Bicarbonate (Sodium Bicarb Inj 8.4% Syr 50 Ml Syringe) 50 ml IV X1 ONE Stop: 06/01/24 09:00 Last Admin: 06/01/24 09:28 Dose: 50 ml Sodium Chloride (Sodium Chloride Rt 10% 15 Ml Nebu) 5 ml INH X1 ONE Stop: 06/01/24 10:28 Last Admin: 06/01/24 12:22 Dose: 5 ml Sodium Polystyrene Sulfonate (Sod Polystyrene Sulfon Susp 15 Gm/60 Ml Btl) 15 gm PO X1 ONE Stop: 06/01/24 09:00 Last Admin: 06/01/24 09:28 Dose: 15 gm Assessment & Plan Plan 74-year-old male past medical history of A-fib with RVR, end-stage renal disease on hemodialysis, HFpEF, diabetes mellitus type 2, hypertension who presents to the ER complaining of Complaint of fever, chills and weakness since last night, also complaining of nasal congestions as well as mild cough which was not productive of sputum. Patient admitted to the medical floor with diagnosis of acute febrile illness likely secondary to viral illness and hyperkalemia secondary to ESRD. #Infective endocarditis, acute #Strep pyogenes bacteremia GAS Assessment: Patient presented with fever, chills, rigors for about 24 hours with high temperatures of 101.5-102 Fahrenheit. Patient has been complaining of upper respiratory infections like symptoms such as cough and shortness of breath. Patient had a left IJ tunnel catheter that was recently removed. Blood cultures on 05/2019 showed gram-positive strep pyogenes group a bacteremia blood cultures on 02/2024 were negative. Echocardiogram done on 06/02/2024 showed the following aortic valve appears to have some calcification there is also an evidence of a small vegetation highly suspicious. There is also mitral valve thickening calcification with mitral valve regurgitation. Also showed an ejection fraction of 60 to 65%. Using the [employer] for cardiovascular infectious disease criteria of 2022 meets both pathologic and clinical dukes criteria for definite endocarditis. Recommendations: -Transesophageal echocardiography to further assess the size of the vegetation in the aortic valve also to determine the level of valvular regurgitation. It is scheduled for the AM. Case discussed with Heating And Blending Supervisor Dr Warren which will be the one performing the DAVE on 06/04/24. -Patient will require several weeks of IV antibiotics. -NPO after midnight -ID consulted #Hematemesis #Hyperkalemia #History of ESRD on HD M/W/F #Bleeding from site of dialysis cath removal #History of hypertension #History of diabetes mellitus #History of A-fib RVR #UTI #Sepsis -Defer management to primary hospitalist team - Patient's care was discussed with my attending physician, Dr. Brian Haque MD Internal Medicine PGY-3 Attending Provider Attestation/Addendum I have personally seen and examined the patient separately on the above date of service and discussed the plan of care with the resident. I reviewed the resident Dr. Nico Vaughan consultation progress note and agree with the resident findings and plan in the note above and have also edited the documentation to reflect my findings and plan. 74-year-old male past medical history of A-fib with RVR, end-stage renal disease on hemodialysis, HFpEF, diabetes mellitus type 2, hypertension who presents to the ER with a chief complaint of fever, chills and weakness, and URI symptoms. Patient was admitted to the hospital and was found to have Streptococcus pyogenes bacteremia with right tunneled dialysis catheter was not removed. Cardiology consulted for further evaluation of possible endocarditis there was a questionable vegetation on the aortic valve requesting a DAVE at the present point of time. Patient denies any kind of swallowing problems or any kind of esophageal interventions or previous surgeries. Patient did have a history of hematemesis Sunday earlier this week and GI was consulted which showed nonbleeding duodenal ulcer along with some gastritis discussed with GI and okay to continue with DAVE. No present hematemesis or hematochezia. Patient denies any issues with anesthesia previously. Patient explained all the risks, benefits and alternatives of DAVE including the risk of perforation, bleeding, respiratory failure secondary to sedation, injury to teeth gums esophagus and stomach. Patient understands all risks and benefits and provided consent for the procedure. Patient was kept n.p.o. overnight and DAVE completed today which showed the following findings. DAVE-06/04/2024: 1.7 x 0.6 cm echogenic mobile mass noted attached at the SVC and right atrial junction. Differential diagnosis includes possible thrombus and less likely vegetation. Right subclavian tunneled dialysis catheter recently removed No evidence of any vegetations. Moderately calcified right coronary cusp of the aortic valve which is also immobile. No evidence of any aortic stenosis as is the left and now cusps are opening well. Trace to mild AI. Normal LV size and function with injection fraction of around 55 to 60%. Normal RV size and function. Mild MR and trace TR. Discussed the findings with the primary dental treatment coordinator Dr. Torres will continue to follow the patient Carl Warren M.D. Interventional Cardiology
[2024-06-03] MEDS: ATORVASTATIN CALCIUM 20 MG TABLET 80 MG PO (21:01)
[2024-06-03] MEDS: INSULIN GLARGINE (Lantus) 5 UNIT/0.05 ML (PER 5 UNITS) SC (21:05)
[2024-06-04] VITALS (35 sets, daily range): BP systolic 93–158; BP diastolic 44–84; PULSE 57–90; RESP 11–99; TEMP 36.2–37.1; O2SAT 94–99
[2024-06-04 06:28] LABS: Basophils % (Auto) 0 % (0-2.5); Eosinophils # (Auto) 0.3 Thou/mm3 (0.0-0.5); Eosinophils % (Auto) 4 % (0-10); Hematocrit 52.1 % (41.0-53.0); Hemoglobin 17.3 g/dL (13.5-16.0); Immature Granulocytes % (Auto) 0 % (0-0); Immature Granulocytes Auto 0.02 Thou/mm3 (0.00-0.00); Lymphocytes # (Auto) 0.8 Thou/mm3 (1.0-4.8); Lymphocytes % (Auto) 11 % (10-50); Mean Corpuscular HGB Conc 33.2 g/dl (31.0-37.0); Mean Corpuscular Hemoglobin 30.7 pg (25.0-35.0); Mean Corpuscular Volume 92 fL (80-100); Monocytes # (Auto) 1.2 Thou/mm3 (0.0-0.8); Monocytes % (Auto) 17 % (0-12); Neutrophils # (Auto) 4.7 Thou/mm3 (1.8-7.7); Neutrophils % (Auto) 67 % (37-80); Nucleated Red Blood Cell % 0 /100 WBC (0); Platelet Count 122 Thou/mm3 (140-440); RDW Standard Deviation 48.2 fL (35.1-43.9); Red Blood Count 5.64 Miln/mm3 (4.50-5.90); White Blood Count 7.1 Thou/mm3 (3.8-10.6)
[2024-06-04 07:04] LABS: Alanine Aminotransferase 23 U/L (10-49); Albumin/Globulin Ratio 1.4 (1.2-2.2); Alkaline Phosphatase 88 U/L (46-116); Anion Gap 16 (7-16); Aspartate Amino Transferase 36 U/L (0-34); BUN/Creatinine Ratio 10 Ratio (12-20); Bilirubin,Total 0.3 mg/dL (0.3-1.2); Blood Urea Nitrogen 64 mg/dL (9-23); Calcium 8.3 mg/dL (8.3-10.6); Calcium (Corrected) 8.3 mg/dL (8.5-10.1); Carbon Dioxide 23.2 mMol/L (20.0-31.0); Chloride 95 mMol/L (98-107); Creatinine (Component) 6.5 mg/dL (0.6-1.3); Estimated Creatinine Clearance 9.8 mL/min (>60); Globulin 2.9 gm/dL (2.3-3.5); Glucose 183 mg/dL (74-106); Magnesium 2.5 mg/dL (1.6-2.6); Osmolality,Calculated 291 (275-295); Phosphorous 4.9 mg/dL (2.4-5.1); Potassium 5.6 mMol/L (3.4-5.1); Sodium 134 mMol/L (136-145); Total Protein 6.9 gm/dL (5.7-8.2); eGFR 8 See Note
--- NOTE | 2024-06-04 08:10 | ECHO_ITS ---
Transesophageal Echo Report Ht (in): 70 Wt (lb): 152 Exam Location: [facility] Status: Inpatient Preformer [employer]: [place] Barreto^^^^ Indications: Procedure Performed: BP: 158 / 73 HR: 61 Rhythm: Sinus Technical Quality: Good Medications 5 versed 2 fentanyl FINDINGS Left Ventricle Normal left ventricular size, wall thickness, systolic function with no obvious regional wall motion abnormalities. Normal left ventricular diastolic filling pattern for age. The ejection fraction is visually estimated at 55-60 %. Right Ventricle The right ventricle is normal in size and systolic function. The estimated right ventricular systolic pressure, __ mmHg. Left Atrium The left atrium is normal by two-dimensional, color flow and Doppler imaging with no structural abnormalities, no thrombus formation present. Right Atrium There is a right atrial cavity thrombus Atrial Appendages The left atrial appendage appears normal with no evidence for thrombus. Atrial Septum The interatrial septum is normal to color flow Doppler and agitated saline imaging. Aorta The aorta is normal by two-dimensional, color flow and Doppler interrogation. Mitral Valve Trace to mild mitral regurgitation. Aortic Valve Calcification of the right coronary cusp. Aortic valve sclerosis. Trace to mild aortic valve regurgitation. Tricuspid Valve There is mild tricuspid valve regurgitation. Pulmonic Valve The pulmonic valve is normal by two-dimensional, color flow and Doppler interrogation. There is no significant pulmonic valve regurgitation. Vessels The pulmonary artery appears normal. The inferior vena cava pulmonary and hepatic veins appear normal. Pericardium The pericardium is normal by two-dimensional imaging. There is no significant pericardial effusion. CONCLUSIONS Indication: Bacteremia-rule out vegetations. 1.7 x 0.6 cm echogenic mobile mass noted attached at the SVC and right atrial junction. Differential diagnosis includes possible thrombus and less likely vegetation. Right subclavian tunneled dialysis catheter recently removed No evidence of any vegetations. Moderately calcified right coronary cusp of the aortic valve which is also immobile. No evidence of any aortic stenosis as is the left and now cusps are opening well. Trace to mild AI. Normal LV size and function with injection fraction of around 55 to 60%. Normal RV size and function. Mild MR and trace TR. Carl Warren (Electronically Signed) Final Date: 05 June 2024 06:24
--- NOTE | 2024-06-04 09:21 | ESPR_ITS ---
<Statement entered by Rebecca Torres MD - 06/05/24 18:00> I examined the patient evaluated the patient again patient did undergo transesophageal echo that showed no evidence of aortic valve vegetation transthoracic echo showing vegetation as an artifact patient did have calcification of the aortic valve appearing like vegetation. However there was evidence of a a tiny structure near the entrance of the superior vena cava into the atrium may represent a small thrombus versus remanent of dialysis catheter vegetation but doubt very much that you will have any implications recommend medical management no need to treat as endocarditis since the patient does not have any clear vegetation to be concerned at this time. If the patient spikes temperature again and continue to have blood cultures positive recommend prolonged antibiotic otherwise standard therapy would be recommended for now. No anticoagulation is needed since the structure does not appear to be clearly a thrombus does not appear to be high risk for any embolization at this point. Documentation for date of: 06/05/24 Subjective Subjective Interval history: Patient seen and examined today. I was in the DAVE lab with the patient and finished goods inspector. Patient tolerated the procedure well. Exam Vital Signs Temp Pulse Resp BP Pulse Ox O2 Del Method O2 Flow Rate 97.6 F 77 18 116/68 98 Nasal Cannula 2 06/05/24 08:00 06/05/24 08:33 06/05/24 08:00 06/05/24 08:33 06/05/24 08:00 06/05/24 08:00 06/05/24 08:00 Narrative Exam Constitutional: AOx3, able to speak full sentences HEENT: NC/AT, PERRLA, oral mucosa moist, neck supple CVS: RRR, S1-S2 present, no murmurs RESP: CTAB GI: non distended, non tender to palpation, NBS MSK: full ROM, no peripheral edema, peripheral pulses present Skin: warm and dry, no rashes Neuro: rocket test fire worker II-XII grossly intact. Sensation grossly intact. Objective Labs 06/04/24 04:55 06/04/24 04:55 Quality Measures Quality Measures sepsis Current suspected stage: ruled out Possible source: unknown Blood cultures ordered: yes Antibiotic ordered: Yes Advance care planning discussed with:: patient Assessment & Plan Assessment Current Active Medications: Generic Name Dose Route Start Last Admin Trade Name Freq PRN Reason Stop Dose Admin Acetaminophen 650 mg 06/01/24 13:41 06/04/24 16:36 Acetaminophen 325 Mg Tablet PO 07/01/24 10:21 650 mg Q6H PRN Administration Pain Or Fever > 100.3 Amlodipine Besylate 10 mg 06/02/24 09:00 06/05/24 08:33 Amlodipine Besylate 5 Mg Tablet PO 07/02/24 08:59 10 mg DAILY PROSPER Administration Atorvastatin Calcium 80 mg 06/01/24 21:00 06/04/24 20:48 Atorvastatin Calcium 20 Mg Tablet PO 07/01/24 20:59 80 mg QPM PROSPER Administration Calcium Acetate 667 mg 06/01/24 22:00 06/05/24 05:41 Calcium Acetate 667 Mg Tablet PO 07/01/24 21:59 667 mg TID PROSPER Administration Dextrose 25 ml 06/01/24 10:28 Dextrose 50%-Water Inj 50 Ml Syringe IV 07/01/24 10:27 Q15MIN PRN BG 50-70 responsive npo pt Dextrose 50 ml 06/01/24 10:28 Dextrose 50%-Water Inj 50 Ml Syringe IV 07/01/24 10:27 Q15MIN PRN BG <50 OR BG <70 & pt unresponsive Gabapentin 300 mg 06/01/24 21:00 06/05/24 08:33 Gabapentin 300 Mg Capsule PO 07/01/24 20:59 300 mg BID PROSPER Administration Glucagon 1 mg 06/01/24 10:28 Glucagon Inj 1 Mg Vial IM Q15MIN PRN BG <70, and no IV access Cefazolin Sodium/Dextrose 1 gm in 50 mls @ 100 mls/hr 06/02/24 18:00 06/04/24 18:23 Ancef Ivpb IV 06/09/24 17:59 100 mls/hr DAILY@1800 PROSPER Administration Insulin Glargine 10 unit 06/04/24 21:00 06/04/24 21:40 Insulin Glargine (Lantus) 5 Unit/0.05 Ml (Per 5 Units) SC 07/04/24 20:59 10 unit HS PROSPER Administration Insulin Human Lispro 0 unit 06/04/24 11:30 06/05/24 07:43 Insulin Lispro (Admelog) 1 Unit/0.01 Ml Unit SC 07/04/24 11:29 2 unit ACHS PROSPER Administration Protocol Metoclopramide HCl 5 mg 06/02/24 21:00 06/05/24 08:33 Metoclopramide Inj 5 Mg/Ml Vial 2 Ml IVP 07/02/24 20:59 5 mg BID PROSPER Administration Protocol Metoprolol Succinate 50 mg 06/01/24 14:45 06/05/24 08:32 Metoprolol Succinate Xl 25 Mg Tabcr PO 07/01/24 14:44 50 mg QDAY PROSPER Administration Ondansetron HCl 4 mg 06/01/24 10:22 Ondansetron Inj 2 Mg/Ml Inj 2 Ml IV 07/01/24 10:21 Q6H PRN NAUSEA OR VOMITING Protocol Pantoprazole Sodium 40 mg 06/01/24 21:00 06/05/24 08:33 Pantoprazole Inj 40 Mg Vial IV 07/01/24 20:59 40 mg BID PROSPER Administration Sennosides 2 tab 06/01/24 10:22 Senna Tablet PO 07/01/24 10:21 BID PRN CONSTIPATION Protocol Plan 74-year-old male past medical history of A-fib with RVR, end-stage renal disease on hemodialysis, HFpEF, diabetes mellitus type 2, hypertension who presents to the ER complaining of Complaint of fever, chills and weakness since last night, also complaining of nasal congestions as well as mild cough which was not productive of sputum. Patient admitted to the medical floor with diagnosis of acute febrile illness likely secondary to viral illness and hyperkalemia secondary to ESRD. #Infective endocarditis, ruled out #Possible SVC thrombus #Strep pyogenes bacteremia GAS Assessment: Patient presented with fever, chills, rigors for about 24 hours with high temperatures of 101.5-102 Fahrenheit. Patient has been complaining of upper respiratory infections like symptoms such as cough and shortness of breath. Patient had a left IJ tunnel catheter that was recently removed. Blood cultures on 05/2019 showed gram-positive strep pyogenes group a bacteremia blood cultures on 02/2024 were negative. Echocardiogram done on 06/02/2024 showed the following aortic valve appears to have some calcification there is also an evidence of a small vegetation highly suspicious. There is also mitral valve thickening calcification with mitral valve regurgitation. Also showed an ejection fraction of 60 to 65%. DAVE-06/04/2024: 1.7 x 0.6 cm echogenic mobile mass noted attached at the SVC and right atrial junction. Differential diagnosis includes possible thrombus and less likely vegetation. Right subclavian tunneled dialysis catheter recently removed No evidence of any vegetations. Moderately calcified right coronary cusp of the aortic valve which is also immobile. No evidence of any aortic stenosis as is the left and now cusps are opening well. Trace to mild AI. Normal LV size and function with injection fraction of around 55 to 60%. Normal RV size and function. Mild MR and trace TR. Recommendations: -Patient will require several weeks of IV antibiotics. -NPO after midnight -ID consulted - Endocarditis ruled out - No need for anticoagulation at this #Hematemesis #Hyperkalemia #History of ESRD on HD M/W/F #Bleeding from site of dialysis cath removal #History of hypertension #History of diabetes mellitus #History of A-fib RVR #UTI #Sepsis -Defer management to primary hospitalist team - Patient's care was discussed with my attending physician, Dr. Brian Haque MD Internal Medicine PGY-3
[2024-06-04] MEDS: BENZOCAINE 20% (Hurricaine) SPRAY 1 DOSE TOP (09:40)
[2024-06-04] MEDS: MIDAZOLAM INJ 1 MG/ML VIAL 2 ML 2 MG IV (09:41)
[2024-06-04] MEDS: fentaNYL CIT INJ 50 mCg/ML AMP 2ML 75 MCG IV (09:41)
--- NOTE | 2024-06-04 10:20 | XR_ITS ---
Examination: Ultrasound soft tissue left clavicular region TECHNIQUE: Grayscale sonographic images soft tissue left shoulder Exam date and time: June 04, 2024 1216 hours INDICATIONS: Swelling and pain at the site of the removal dialysis catheter 6 days ago FINDINGS: Edema at the subclavian site but no organized soft tissue hematoma IMPRESSION: Edema at the incision site removal dialysis catheter but no hematoma noted
[2024-06-04] MEDS: INSULIN LISPRO (AdmeLOG) 1 UNIT/0.01 ML UNIT SC ×3 (12:05→21:38)
--- NOTE | 2024-06-04 14:33 | PC.SS ---
Rounding note: DAVE today. Pending Dr. Sunshine recommendations. D/c plan is to return home.
--- NOTE | 2024-06-04 14:51 | PC.NURSE ---
Venous pressure increased, QB decreased to 250.
--- NOTE | 2024-06-04 15:02 | ESPR_ITS ---
Documentation for date of: 06/04/24 Subjective Subjective Interval history: No overnight events. Patient seen and examined at bedside, resting comfortably. Patient denies fevers, chills, chest pain, shortness of breath, nausea, vomiting. Patient had DAVE today, pending official read. Preliminary read shows vegetation versus thrombus on left ventricular wall. Pending final ID recommendations. Exam Vital Signs Temp Pulse Resp BP Pulse Ox O2 Del Method O2 Flow Rate 97.1 F 78 18 118/77 97 Room Air 3 06/04/24 12:57 06/04/24 15:00 06/04/24 12:57 06/04/24 15:00 06/04/24 12:57 06/04/24 11:40 06/04/24 10:15 Narrative Exam General: AOx3, cooperative, comfortable. Skin: Intact, no cyanosis or edema noted. Tenderness over site of IJ catheter, without fluctuance or edema. HEENT: Atraumatic/normocephalic, CHRISTIE, neck supple Heart: RRR, S1 and S2 without clicks or murmurs Lungs: Clear on auscultation bilaterally, no difficulty breathing. Abdomen: Soft, nontender. Bowel sounds present . Vascular: Peripheral pulses palpable Neuro: No focal neurological deficits noted. Objective Labs 06/04/24 04:55 06/04/24 04:55 Labs: Laboratory Results - last 24 hr 06/04/24 04:55 WBC 7.1 RBC 5.64 Hgb 17.3 H Hct 52.1 MCV 92 MCH 30.7 MCHC 33.2 RDW Std Deviation 48.2 H Plt Count 122 L Neut % (Auto) 67 Lymph % (Auto) 11 [place] % (Auto) 17 H Eos % (Auto) 4 Baso % (Auto) 0 Neut # (Auto) 4.7 Lymph # (Auto) 0.8 L [place] # (Auto) 1.2 H Eos # (Auto) 0.3 Baso # (Auto) 0.0 Immature Gran # (Auto) 0.02 H Absolute Nucleated RBC 0.00 Immature Gran % 0 Nucleated RBC % 0 Sodium 134 L Potassium 5.6 H D Chloride 95 L Carbon Dioxide 23.2 Anion Gap 16 BUN 64 H Creatinine 6.5 H* D Estim Creat Clear Calc 9.8 L eGFR 8 L* BUN/Creatinine Ratio 10 L Glucose 183 H Calculated Osmolality 291 Calcium 8.3 Corrected Calcium 8.3 L Phosphorus 4.9 Magnesium 2.5 Total Bilirubin 0.3 AST 36 H ALT 23 Alkaline Phosphatase 88 Total Protein 6.9 Albumin 4.0 Globulin 2.9 Albumin/Globulin Ratio 1.4 Quality Measures Quality Measures sepsis Current suspected stage: sepsis Possible source: unknown Blood cultures ordered: yes Antibiotic ordered: Yes Advance care planning discussed with:: patient Assessment & Plan Assessment Current Active Medications: Generic Name Dose Route Start Last Admin Trade Name Freq PRN Reason Stop Dose Admin Acetaminophen 650 mg 06/01/24 13:41 06/02/24 12:28 Acetaminophen 325 Mg Tablet PO 07/01/24 10:21 650 mg Q6H PRN Administration Pain Or Fever > 100.3 Amlodipine Besylate 10 mg 06/02/24 09:00 06/04/24 09:39 Amlodipine Besylate 5 Mg Tablet PO 07/02/24 08:59 Not Given DAILY PROSPER Atorvastatin Calcium 80 mg 06/01/24 21:00 06/03/24 21:01 Atorvastatin Calcium 20 Mg Tablet PO 07/01/24 20:59 80 mg QPM PROSPER Administration Calcium Acetate 667 mg 06/01/24 22:00 06/04/24 05:43 Calcium Acetate 667 Mg Tablet PO 07/01/24 21:59 Not Given TID PROSPER Dextrose 25 ml 06/01/24 10:28 Dextrose 50%-Water Inj 50 Ml Syringe IV 07/01/24 10:27 Q15MIN PRN BG 50-70 responsive npo pt Dextrose 50 ml 06/01/24 10:28 Dextrose 50%-Water Inj 50 Ml Syringe IV 07/01/24 10:27 Q15MIN PRN BG <50 OR BG <70 & pt unresponsive Gabapentin 300 mg 06/01/24 21:00 06/04/24 09:39 Gabapentin 300 Mg Capsule PO 07/01/24 20:59 Not Given BID PROSPER Glucagon 1 mg 06/01/24 10:28 Glucagon Inj 1 Mg Vial IM Q15MIN PRN BG <70, and no IV access Cefazolin Sodium/Dextrose 1 gm in 50 mls @ 100 mls/hr 06/02/24 18:00 06/03/24 17:29 Ancef Ivpb IV 06/09/24 17:59 100 mls/hr DAILY@1800 PROSPER Administration Insulin Glargine 10 unit 06/04/24 21:00 Insulin Glargine (Lantus) 5 Unit/0.05 Ml (Per 5 Units) SC 07/04/24 20:59 HS PROSPER Insulin Human Lispro 0 unit 06/04/24 11:30 06/04/24 12:05 Insulin Lispro (Admelog) 1 Unit/0.01 Ml Unit SC 07/04/24 11:29 1 unit ACHS PROSPER Administration Protocol Metoclopramide HCl 5 mg 06/02/24 21:00 06/04/24 09:40 Metoclopramide Inj 5 Mg/Ml Vial 2 Ml IVP 07/02/24 20:59 Not Given BID PROSPER Protocol Metoprolol Succinate 50 mg 06/01/24 14:45 06/04/24 09:38 Metoprolol Succinate Xl 25 Mg Tabcr PO 07/01/24 14:44 Not Given QDAY PROSPER Ondansetron HCl 4 mg 06/01/24 10:22 Ondansetron Inj 2 Mg/Ml Inj 2 Ml IV 07/01/24 10:21 Q6H PRN NAUSEA OR VOMITING Protocol Pantoprazole Sodium 40 mg 06/01/24 21:00 06/04/24 09:40 Pantoprazole Inj 40 Mg Vial IV 07/01/24 20:59 Not Given BID PROSPER Sennosides 2 tab 06/01/24 10:22 Senna Tablet PO 07/01/24 10:21 BID PRN CONSTIPATION Protocol Plan 74-year-old male past medical history of A-fib with RVR, end-stage renal disease on hemodialysis, HFpEF, diabetes mellitus type 2, hypertension who presents to the ER complaining of Complaint of fever, chills and weakness since last night, also complaining of nasal congestions as well as mild cough which was not productive of sputum. Patient admitted to the medical floor with diagnosis of acute febrile illness likely secondary to viral illness and hyperkalemia secondary to ESRD. #Sepsis #Strep pyogenes bacteremia #Infective endocarditis #UTI The patient had sudden onset of fever with rigors and chills starting last night, Tmax 101.5, complaining of upper respiratory tract symptoms with cough, nonproductive, denies shortness of breath. Reported dysuria, urinalysis shows some hematuria, no WBCs but rare bacteria, possibly sample taken after antibiotics administered. Sepsis alert was initiated in the ER due to fever and tachycardia and leukocytosis. The patient had negative bedside COVID and flu testing in the ER. Blood culture showed strep pyogenes 2/2 bottles. ID consulted. Repeat cultures taken. Echo showed pattern consistent with aortic valve vegetations. Cardiology consulted regarding possible DAVE. Repeat blood cultures negative. DAVE showed vegetation versus thrombus on left ventricular wall, but did not show vegetation of aortic valve. Soft tissue ultrasound of previous catheter site showed soft tissue edema but no abscess/hematoma. ? Continue IV cefazolin - ID consulted, appreciate recommendations - Cardiology consulted, appreciate recommendations #Hematemesis Patient had episode of coffee-ground like emesis overnight. Denies abdominal pain at this time. Hemoglobin stable. Patient received EGD which showed gastritis with hemorrhage and nonbleeding ulcer. - GI consulted, appreciate recommendations - Reglan 5 mg every 12 hours - Protonix 40 mg IV twice daily - Avoid anticoagulation - PUD diet #Hyperkalemia #History of ESRD on HD M/W/ #Bleeding from site of dialysis cath removal Noted hyperkalemia, EKG shows normal sinus rhythm, no hyperacute T waves or QRS changes noted, of note patient has prior history of A-fib RVR, currently in sinus rhythm. Received hyperkalemia cocktail, sodium bicarb and Kayexalate in the ER. ? Follow repeat renal panel ? Nephrology is Dr Espinosa was consulted, dialysis as per patient's home schedule. #History of hypertension #History of diabetes mellitus #History of A-fib RVR ? Resume home medications. - Lantus 10 units daily - ISS DVT prophylaxis: SCDs GI prophylaxis: Protonix Diet: PUD diet Lines: PIV Code status: Full code Plan of care discussed with attending Dr. Poewrs. Amando Fountain MD PGY?1 Attending Provider Attestation/Addendum I reviewed labs, imaging, EKG, home medications and prior available records. Face to face evaluation was performed by me. I have personally examined the patient and discussed assessment and plan with the IM team. I reviewed the resident note and agree with the plan with exceptions as below. Infective endocarditis Coffee-ground emesis, possible upper GI bleed ESRD on hemodialysis Acute febrile illness Hyperkalemia, resolved Leukocytosis Consulted GI. Status post EGD that showed hemorrhagic gastritis. Continue Protonix Blood cultures are growing gram-positive cocci in 2/2 bottles. Identified as Streptococcus group A. Consulted ID: Changed antibiotics to cefazolin Ordered ultrasound of the chest given the purulent discharge on the anterior chest at the time of the remove dialysis catheter to rule out abscess Repeated blood culture: Negative to date Transthoracic echocardiogram showed possible vegetation. EF 65%. Consulted cardiology: Recommended DAVE which showed possible vegetation versus clot Trend WBC: Downtrending Consulted nephrology for hemodialysis
--- NOTE | 2024-06-04 15:05 | PD.IDPROG ---
Subjective Subjective Interval history: bc neg at >48h. so ok for outpt rx with ancef 2 gm after each hd rx Exam Vital Signs Temp Pulse Resp BP Pulse Ox O2 Del Method O2 Flow Rate 97.1 F 78 18 118/77 97 Room Air 3 06/04/24 12:57 06/04/24 15:00 06/04/24 12:57 06/04/24 15:00 06/04/24 12:57 06/04/24 11:40 06/04/24 10:15 Narrative Exam limited eval Objective - Internal Medicine Labs 06/04/24 04:55 06/04/24 04:55 Labs: Laboratory Results - last 24 hr 06/04/24 04:55 WBC 7.1 RBC 5.64 Hgb 17.3 H Hct 52.1 MCV 92 MCH 30.7 MCHC 33.2 RDW Std Deviation 48.2 H Plt Count 122 L Neut % (Auto) 67 Lymph % (Auto) 11 [place] % (Auto) 17 H Eos % (Auto) 4 Baso % (Auto) 0 Neut # (Auto) 4.7 Lymph # (Auto) 0.8 L [place] # (Auto) 1.2 H Eos # (Auto) 0.3 Baso # (Auto) 0.0 Immature Gran # (Auto) 0.02 H Absolute Nucleated RBC 0.00 Immature Gran % 0 Nucleated RBC % 0 Sodium 134 L Potassium 5.6 H D Chloride 95 L Carbon Dioxide 23.2 Anion Gap 16 BUN 64 H Creatinine 6.5 H* D Estim Creat Clear Calc 9.8 L eGFR 8 L* BUN/Creatinine Ratio 10 L Glucose 183 H Calculated Osmolality 291 Calcium 8.3 Corrected Calcium 8.3 L Phosphorus 4.9 Magnesium 2.5 Total Bilirubin 0.3 AST 36 H ALT 23 Alkaline Phosphatase 88 Total Protein 6.9 Albumin 4.0 Globulin 2.9 Albumin/Globulin Ratio 1.4 Assessment & Plan A&P Narrative iv cath bacteremia, group A strep (GAS) ckd 5 dm II htn afib hld ( by meds) ok to finish rx as outpt with iv ancef 2 gm at end of each hd session thru 07/16. no echo needed. longer rx likely with fistula present. will try to maintain the fistula if we can. f/u with nephrology. no need for outpt ID F/U Time Spent With Patient Time: Total time spent is greater than 50% in coordination of care (as documented) at patient's floor/unit and/or counseling patient:
--- NOTE | 2024-06-04 15:16 | PC.NURSE ---
BP dropping, decreased goal to 2.5 L
[2024-06-04] MEDS: ACETAMINOPHEN 325 MG TABLET 650 MG PO (16:36)
[2024-06-04] MEDS: ceFAZolin/D5W 1 GM IVPB 1 GM/50 ML BAG IV (18:23)
--- NOTE | 2024-06-04 20:07 | PD.IMPROG ---
Documentation for date of: 06/04/24 Subjective Subjective Interval history: Hemoglobin hematocrit stable no further hematemesis Exam Vital Signs Temp Pulse Resp BP Pulse Ox O2 Del Method O2 Flow Rate 98.1 F 81 18 123/78 95 Nasal Cannula 2 06/04/24 16:00 06/04/24 16:04 06/04/24 16:00 06/04/24 16:04 06/04/24 16:00 06/04/24 16:00 06/04/24 16:00 Objective Labs 06/04/24 04:55 06/04/24 04:55 Labs: Laboratory Results - last 24 hr 06/04/24 04:55 WBC 7.1 RBC 5.64 Hgb 17.3 H Hct 52.1 MCV 92 MCH 30.7 MCHC 33.2 RDW Std Deviation 48.2 H Plt Count 122 L Neut % (Auto) 67 Lymph % (Auto) 11 [place] % (Auto) 17 H Eos % (Auto) 4 Baso % (Auto) 0 Neut # (Auto) 4.7 Lymph # (Auto) 0.8 L [place] # (Auto) 1.2 H Eos # (Auto) 0.3 Baso # (Auto) 0.0 Immature Gran # (Auto) 0.02 H Absolute Nucleated RBC 0.00 Immature Gran % 0 Nucleated RBC % 0 Sodium 134 L Potassium 5.6 H D Chloride 95 L Carbon Dioxide 23.2 Anion Gap 16 BUN 64 H Creatinine 6.5 H* D Estim Creat Clear Calc 9.8 L eGFR 8 L* BUN/Creatinine Ratio 10 L Glucose 183 H Calculated Osmolality 291 Calcium 8.3 Corrected Calcium 8.3 L Phosphorus 4.9 Magnesium 2.5 Total Bilirubin 0.3 AST 36 H ALT 23 Alkaline Phosphatase 88 Total Protein 6.9 Albumin 4.0 Globulin 2.9 Albumin/Globulin Ratio 1.4 Impressions Impression: Gastritis shallow duodenal ulcer Continue current management Assessment & Plan A&P Narrative iv cath bacteremia, group A strep (GAS) ckd 5 dm II htn afib hld ( by meds) ok to finish rx as outpt with iv ancef 2 gm at end of each hd session thru 07/16. no echo needed. longer rx likely with fistula present. will try to maintain the fistula if we can. f/u with nephrology. no need for outpt ID F/U Time Spent With Patient Time: Total time spent is greater than 50% in coordination of care (as documented) at patient's floor/unit and/or counseling patient:
[2024-06-04] MEDS: ATORVASTATIN CALCIUM 20 MG TABLET 80 MG PO (20:48)
[2024-06-04] MEDS: GABAPENTIN 300 MG CAPSULE PO (20:49)
[2024-06-04] MEDS: METOCLOPRAMIDE INJ 5 MG/ML VIAL 2 ML IVP (21:20)
[2024-06-04] MEDS: PANTOPRAZOLE INJ 40 MG VIAL IV (21:22)
[2024-06-04] MEDS: CALCIUM ACETATE 667 MG TABLET PO (21:30)
[2024-06-04] MEDS: INSULIN GLARGINE (Lantus) 5 UNIT/0.05 ML (PER 5 UNITS) 10 UNIT SC (21:40)
[2024-06-05] VITALS: BP 100/62; PULSE 74; PULSE 79; RESP 19; TEMP 36.1; O2SAT 98
[2024-06-05 04:00] VITALS: BP 116/68; PULSE 65; PULSE 72; RESP 18; TEMP 36.6; O2SAT 100
[2024-06-05] MEDS: CALCIUM ACETATE 667 MG TABLET PO ×2 (05:41→13:22)
[2024-06-05] MEDS: INSULIN LISPRO (AdmeLOG) 1 UNIT/0.01 ML UNIT SC ×2 (07:43→11:57)
[2024-06-05 08:00] VITALS: BP 116/68; PULSE 72; PULSE 77; RESP 18; TEMP 36.4; O2SAT 98
[2024-06-05 08:32] VITALS: BP 116/68; PULSE 77
[2024-06-05] MEDS: METOPROLOL SUCCINATE XL 25 MG TABCR 50 MG PO (08:32)
[2024-06-05 08:33] VITALS: BP 116/68; PULSE 77
[2024-06-05] MEDS: amLODIPine BESYLATE 5 MG TABLET 10 MG PO (08:33)
[2024-06-05] MEDS: PANTOPRAZOLE INJ 40 MG VIAL IV (08:33)
[2024-06-05] MEDS: METOCLOPRAMIDE INJ 5 MG/ML VIAL 2 ML IVP (08:33)
[2024-06-05] MEDS: GABAPENTIN 300 MG CAPSULE PO (08:33)
[2024-06-05 09:48] LABS: Basophils % (Auto) 0 % (0-2.5); Eosinophils # (Auto) 0.1 Thou/mm3 (0.0-0.5); Eosinophils % (Auto) 3 % (0-10); Hematocrit 51.4 % (41.0-53.0); Hemoglobin 17.2 g/dL (13.5-16.0); Immature Granulocytes % (Auto) 0 % (0-0); Immature Granulocytes Auto 0.01 Thou/mm3 (0.00-0.00); Lymphocytes % (Auto) 20 % (10-50); Mean Corpuscular HGB Conc 33.5 g/dl (31.0-37.0); Mean Corpuscular Hemoglobin 30.5 pg (25.0-35.0); Mean Corpuscular Volume 91 fL (80-100); Monocytes # (Auto) 0.9 Thou/mm3 (0.0-0.8); Monocytes % (Auto) 18 % (0-12); Neutrophils # (Auto) 2.9 Thou/mm3 (1.8-7.7); Neutrophils % (Auto) 59 % (37-80); Nucleated Red Blood Cell % 0 /100 WBC (0); Platelet Count 104 Thou/mm3 (140-440); RDW Standard Deviation 46.8 fL (35.1-43.9); Red Blood Count 5.64 Miln/mm3 (4.50-5.90); White Blood Count 4.9 Thou/mm3 (3.8-10.6)
[2024-06-05 09:54] LABS: Alanine Aminotransferase 13 U/L (10-49); Albumin, Serum 3.9 gm/dL (3.4-4.8); Albumin/Globulin Ratio 1.4 (1.2-2.2); Alkaline Phosphatase 86 U/L (46-116); Anion Gap 13 (7-16); Aspartate Amino Transferase 25 U/L (0-34); BUN/Creatinine Ratio 9 Ratio (12-20); Bilirubin,Total 0.2 mg/dL (0.3-1.2); Blood Urea Nitrogen 57 mg/dL (9-23); Calcium 8.1 mg/dL (8.3-10.6); Calcium (Corrected) 8.2 mg/dL (8.5-10.1); Carbon Dioxide 22.8 mMol/L (20.0-31.0); Chloride 90 mMol/L (98-107); Creatinine (Component) 6.3 mg/dL (0.6-1.3); Estimated Creatinine Clearance 10.1 mL/min (>60); Globulin 2.7 gm/dL (2.3-3.5); Glucose 343 mg/dL (74-106); Osmolality,Calculated 283 (275-295); Potassium 4.5 mMol/L (3.4-5.1); Sodium 126 mMol/L (136-145); Total Protein 6.6 gm/dL (5.7-8.2); eGFR 9 See Note
[2024-06-05 12:00] VITALS: BP 110/65; PULSE 66; PULSE 80; RESP 18; TEMP 36.3; O2SAT 97
--- NOTE | 2024-06-05 12:17 | PC.PT ---
PT eval only. Patient is xI and is safe to ambulate to the bathroom and in the halls with no DME and 1 person either family or staff with him for safety. RN made aware.
--- NOTE | 2024-06-05 12:32 | ESPR_ITS ---
Documentation for date of: 06/05/24 Subjective Subjective Interval history: 74-year-old , Turkish-speaking only gentleman with type 2 diabetes, hypertension, ESRD on dialysis every Sunday, Sunday, and Sunday since 04/2023, who presented to the emergency room with fever, chills, Pt is seen and examined. No new complaints Exam Vital Signs Temp Pulse Resp BP Pulse Ox O2 Del Method O2 Flow Rate 97.6 F 77 18 116/68 98 Nasal Cannula 2 06/05/24 08:00 06/05/24 08:33 06/05/24 08:00 06/05/24 08:33 06/05/24 08:00 06/05/24 08:00 06/05/24 08:00 Narrative Exam PHYSICAL EXAMINATION: Vital Signs: Blood pressure of 112/67, heart rate of 65. HEENT: Anicteric sclerae. Normocephalic. Neck: Supple. No JVD. Chest and Lungs: Symmetrical expansion with clear breath sounds. Heart: No murmur. Abdomen: Soft and intact. Extremities: No edema. Objective Labs 06/05/24 07:00 06/05/24 07:00 Labs: Laboratory Results - last 24 hr 06/05/24 07:00 WBC 4.9 RBC 5.64 Hgb 17.2 H Hct 51.4 MCV 91 MCH 30.5 MCHC 33.5 RDW Std Deviation 46.8 H Plt Count 104 L Neut % (Auto) 59 Lymph % (Auto) 20 [place] % (Auto) 18 H Eos % (Auto) 3 Baso % (Auto) 0 Neut # (Auto) 2.9 Lymph # (Auto) 1.0 [place] # (Auto) 0.9 H Eos # (Auto) 0.1 Baso # (Auto) 0.0 Immature Gran # (Auto) 0.01 H Absolute Nucleated RBC 0.00 Immature Gran % 0 Nucleated RBC % 0 Sodium 126 L Potassium 4.5 D Chloride 90 L Carbon Dioxide 22.8 Anion Gap 13 BUN 57 H Creatinine 6.3 H* Estim Creat Clear Calc 10.1 L eGFR 9 L* BUN/Creatinine Ratio 9 L Glucose 343 H D Calculated Osmolality 283 Calcium 8.1 L Corrected Calcium 8.2 L Total Bilirubin 0.2 L AST 25 ALT 13 Alkaline Phosphatase 86 Total Protein 6.6 Albumin 3.9 Globulin 2.7 Albumin/Globulin Ratio 1.4 Assessment & Plan Assessment and plan (1) Dialysis patient: Status: Acute (2) End stage renal disease: Status: Acute Assessment and plan: c/w dialysis MWF fluid restriction for hyponatremia next dialysis tomorrow K is stable (3) Fever: Status: Acute Assessment and plan: sepsis, bactremia, plan as per ID (4) Hyperkalemia: Status: Acute
--- NOTE | 2024-06-05 14:21 | ESDS_ITS ---
Planned Discharge Date 06/05/24 DS: Providers Provider Date of admission: 06/01/24 10:23 Primary care physician: Jyoti Calixto PA-C Admitting Provider: Memo Powers MD Attending Provider on Admission: Memo Powers MD Consults: 06/01/24 09:22 Consult to Nephrology Stat Comment: Consulting Provider: Adam Glez 06/01/24 14:02 Consult to Nephrology Routine Comment: Consulting Provider: Marcella Espinosa 06/01/24 20:43 Consult to Gastroenterology Urgent Comment: upper GI bleed Consulting Provider: Nicolas Franklin 06/02/24 08:37 Consult to Infectious Diseases Routine Comment: Strep pyogenes bacteremia Consulting Provider: Wilmar Sunshine 06/03/24 10:29 Consult to Cardiology Routine Comment: Endocarditis Consulting Provider: Rebecca Torres 06/03/24 11:58 Consult to General Surgery Routine Comment: infected site of dialysis cath line Consulting Provider: Kitty De La Garza 06/03/24 15:09 Referral Wound Care Urgent Comment: Incision from AVF removal on left chest 06/04/24 10:49 Referral Physical Therapy Routine Comment: Physician Instructions: 06/04/24 15:18 Referral Nutritional Services Routine Comment: Wounds, HD Referral OP Wound Healing Dept Routine Comment: Left IJ surgical site Attending Provider on DC: Memo Powers MD Discharging Provider: Amando Fountain MD DS: Diagnosis Problem List Completed Was Problem List Reviewed/Reconciled?: Yes Hospital Course Hospital Course Hospital course: 74-year-old male past medical history of A-fib with RVR, end-stage renal disease on hemodialysis, HFpEF, diabetes mellitus type 2, hypertension who presented to the ER with complaint of fever, chills, and weakness, admitted for acute bacterial infection. Of note, patient had just recently had left IJ catheter removed outpatient after maturation of fistula for dialysis. On examination, fistula site was tender, fabi pus was able to be expressed. Blood cultures positive for strep pyogenes. Infectious disease consulted, recommended treatment course with Ancef. During hospitalization patient had episode of hematemesis, patient received EGD which showed shallow duodenal ulcer. GI consulted for further recommendations. Patient received echo and DAVE, which ruled out vegetation but showed a ventricular thrombus. Cardiology consulted, did not recommend anticoagulation in the setting of recent GI bleed with ulcer on EGD. Risks and benefits of anticoagulation versus no anticoagulation was discussed with patient, engaged in shared decision making after which patient agreed to no anticoagulation at this time. Patient stable for discharge from ID, GI, cardiology perspective. Patient medically stable and cleared for discharge. Discharge plan: You have been started on the following medications: - Ancef 2 g via IV after each dialysis session through 07/16/2024 for treatment of bactermia . - Protonix 40 mg twice daily Please continue taking all other medications as previously prescribed. Please follow-up with your primary doctor within 2 weeks. Please follow-up with cardiology within 2 weeks for further management of left ventricular thrombus. Please follow-up with a GI physician, seek further workup of duodenal ulcer including H. pylori testing. Return to the ED if you develop new or worsening symptoms. Diagnoses: #Sepsis #Strep pyogenes bacteremia #Infective endocarditis #UTI #Hematemesis #Hyperkalemia #History of ESRD on HD M/W/F #Bleeding from site of dialysis cath removal #History of hypertension #History of diabetes mellitus #History of A-fib RVR Plan of care discussed with attending Dr. Powers. Amando Fountain MD PGY?1 Status at Discharge Overall status at discharge: patient is progressing back to baseline Time Spent with Patient Time attestation: Total time spent providing and/or coordinating discharge services: Time spent: Greater than 30 minutes Exam Vital Signs Temp Pulse Resp BP Pulse Ox O2 Del Method O2 Flow Rate 97.4 F 80 18 110/65 97 Room Air 2 06/05/24 12:00 06/05/24 12:06/05/24 12:06/05/24 12:06/05/24 12:06/05/24 12:06/05/24 08:00 Narrative Exam General: AOx3, cooperative, comfortable. Skin: Intact, no cyanosis or edema noted. Tenderness over site of IJ catheter, without fluctuance or edema. HEENT: Atraumatic/normocephalic, CHRISTIE, neck supple Heart: RRR, S1 and S2 without clicks or murmurs Lungs: Clear on auscultation bilaterally, no difficulty breathing. Abdomen: Soft, nontender. Bowel sounds present . Vascular: Peripheral pulses palpable Neuro: No focal neurological deficits noted. Discharge Plan Plan Patient Disposition: HOME (Self Care) Patient condition on transfer: Stable Care Plan Goals: You have been started on the following medications: - Ancef 2 g via IV after each dialysis session through 07/16/2024 for treatment of bactermia . - Protonix 40 mg twice daily Please continue taking all other medications as previously prescribed. Please follow-up with your primary doctor within 2 weeks. Please follow-up with cardiology within 2 weeks for further management of left ventricular thrombus. Please follow-up with a GI physician, seek further workup of duodenal ulcer including H. pylori testing. Return to the ED if you develop new or worsening symptoms. Prescriptions/Referrals Prescriptions/Med Rec: New pantoprazole [Protonix] 40 mg tablet,delayed release (DR/EC) 40 mg PO BID 30 Days Qty: 60 0RF cefazolin in dextrose 5 % 2 gram/100 mL solution 100 ml IV Q OTHER DAY 18 Days Qty: 1200 0RF Continued calcium acetate(phosphat bind) 667 mg capsule 667 mg PO TID Patient Comments: TOME 1 C PSULA POR V A ORAL TYLOR VECES AL D A CON LAS COMIDAS Rx Instructions: with meals aspirin 81 mg tablet,delayed release (DR/EC) 81 mg PO QDAY Patient Comments: TOME JAMIE TABLETA POR VIA ORAL TODOS [place] B complex-vitamin C-folic acid [Sabrina-Nakia] 0.8 tab PO DAILY Patient Comments: TOME 1 TABLETA POR VIA ORAL TODOS [place] FOR 90 ROUSE Rx Instructions: orally daily; amlodipine 10 mg tablet 10 mg PO .QD glipizide 2.5 mg tablet extended release 24hr 2.5 mg PO QAM Patient Comments: TOME 1 TABLETA POR VIA ORAL TODOS [place] furosemide 40 mg Tablet 40 mg PO QDAY atorvastatin 80 mg Tablet 80 mg PO QPM metoprolol succinate 50 mg Tablet Extended Release 24 Hr 50 mg PO QDAY ferrous sulfate 325 mg (65 mg iron) Tablet 325 mg PO TID gabapentin 300 mg Capsule 300 mg PO BID insulin glargine [Lantus Solostar U-100 Insulin] 100 unit/mL (3 mL) insulin pen 35 unit subcut QPM Qty: 15 0RF insulin lispro [Admelog SoloStar U-100 Insulin] 100 unit/mL insulin pen 1 sliding scale dose subcut USEASDIRECTD Qty: 15 0RF (DME) blood-glucose meter [Accu-Chek Guide Glucose Meter] Misc See Rx Instructions .Route Qty: 1 0RF Rx Instructions: As directed (DME) lancets [Comfort EZ Lancets] 28 gauge misc See Rx Instructions .Route Qty: 100 0RF Rx Instructions: As directed (DME) pen needle, diabetic [BD Ultra-Fine Mini Pen Needle] 31 gauge x 3/16 needle See Rx Instructions .Route Qty: 1200 0RF Rx Instructions: As directed (DME) Accu-Chek Guide test strips Strip See Rx Instructions .Route Qty: 50 0RF Rx Instructions: As directed Referrals: Jyoti Calixto PA-C [Primary Care Provider] - Nicolas Franklin MD [Physician] - Shanon Bay MD [Physician] - Rebecca Torres MD [Physician] - Patient/Caregiver Discharge Instructions Discharge Activity: activity as tolerated Education Materials: Understanding Post Sepsis Syndrome, Upper GI Endoscopy, Diabetes and Kidney Disease, Preventing Surgical Site Infections, Understanding Sepsis Print Language: Albanian Stand Alone Forms: [facility]dee Award Info., Patient Portal Info Letter Discharge Order Discharge Orders: Discharge (Routine); Ordered 06/05/24 Ordered By: Amando Fountain Quality Discharge Quality Measures VTE prophylaxis Attestestation Attestation I reviewed labs, imaging, EKG, home medications and prior available records. Face to face evaluation was performed by me. I have personally examined the patient and discussed assessment and plan with the IM team. I reviewed the resident note and agree with the plan with exceptions as below. Infective endocarditis Coffee-ground emesis, possible upper GI bleed ESRD on hemodialysis Acute febrile illness Hyperkalemia, resolved Leukocytosis Consulted GI. Status post EGD that showed hemorrhagic gastritis. Continue Protonix Blood cultures are growing gram-positive cocci in 2/2 bottles. Identified as Streptococcus group A. Consulted ID: Changed antibiotics to cefazolin Ordered ultrasound of the chest: Showed no abscess or fluid collection. Continue wound care. Ordered home health for that Repeated blood culture: Negative to date Consulted ID: Recommended IV cefazolin till 6/4. 2 g after each hemodialysis session. Transthoracic echocardiogram showed possible vegetation. EF 65%. Consulted cardiology: Recommended DAVE which showed possible vegetation versus clot: Less likely to be vegetation and more likely to be a clot, however, no need for anticoagulation Trend WBC: Downtrending Outpatient follow-up with nephrology Time spent is 40 minutes. More than 50% of the time was spent on patient education and coordination of care.
--- NOTE | 2024-06-05 15:08 | PC.SS ---
Late entry: SS follow up: faxed wound care referral for outpatient referral follow up with [facility] wound healing center.
--- NOTE | 2024-06-06 16:44 | PC.CM ---
Patient accepted by [facility]. Start of care date 06/09.
== END 2024-06-05 13:55 | disposition home health service (06) | DRG 871 ==
LOC: SERX 08:27 → SERHOLD 10:38 → S3NX 19:21
PROVIDERS: Internal Medicine Cardiovascular Disease; Internal Medicine Nephrology; Specialist; Student in an Organized Health Care Education/Training Program; Admitting Provider Student in an Organized Health Care Education/Training Program; Emergency Provider Family Medicine; PCP Physician Assistant; Visit Provider Student in an Organized Health Care Education/Training Program
PROC: (CPT 43239; principal; 2024-06-02 18:30)
DX: A40.0 Sepsis due to streptococcus, group A (principal); I33.0 Acute and subacute infective endocarditis; K29.01 Acute gastritis with bleeding; K26.4 Chronic or unspecified duodenal ulcer with hemorrhage; N18.6 End stage renal disease; I13.2 Hypertensive heart and chronic kidney disease with heart failure and with stage 5 chronic kidney disease, or end stage renal disease; I50.32 Chronic diastolic (congestive) heart failure; N39.0 Urinary tract infection, site not specified; E87.1 Hypo-osmolality and hyponatremia; I48.91 Unspecified atrial fibrillation; E87.5 Hyperkalemia; E11.22 Type 2 diabetes mellitus with diabetic chronic kidney disease; E78.5 Hyperlipidemia, unspecified; E87.6 Hypokalemia; K29.80 Duodenitis without bleeding; I34.0 Nonrheumatic mitral (valve) insufficiency; Z79.4 Long term (current) use of insulin; Z99.2 Dependence on renal dialysis; Z79.82 Long term (current) use of aspirin; Z79.84 Long term (current) use of oral hypoglycemic drugs
CPT/HCPCS: 36415; 71046; 76536; 80053; 80061; 80069; 80074; 81001; 83605; 83735; 84100; 84145; 84443; 84478; 85014; 85018; 85025; 85610; 85730; 86706; 87040; 87077; 87081; 87205; 87400; 87811; 93005; 93225; 93306; 93312; 96361; 96365; 96366; 96375; 97161; 99152; 99291; J0689; J1200; J1815; J2250; J2405; J2470; J2543; J2765; J3010; J3370; J7040; A9270

== ENCOUNTER → 2024-06-13 | Outpatient (CLI) | payer OTHER, SELFPAY | END | disposition home or self-care (01) | PROVIDERS: PCP Surgery Vascular Surgery; Referring Provider Surgery Vascular Surgery; Visit Provider Physician Assistant | DX: T81.89XA Other complications of procedures, not elsewhere classified, initial encounter (principal); N18.6 End stage renal disease; I10 Essential (primary) hypertension; I48.91 Unspecified atrial fibrillation; E11.69 Type 2 diabetes mellitus with other specified complication | CPT/HCPCS: 99213; A9270; G0463 ==

== ENCOUNTER → 2024-06-20 | Outpatient (CLI) | payer OTHER, SELFPAY | END | disposition home or self-care (01) | LOC: SWHD 09:02 | PROVIDERS: PCP Family Medicine; Referring Provider Family Medicine; Visit Provider Surgery | DX: T81.89XA Other complications of procedures, not elsewhere classified, initial encounter (principal); N18.6 End stage renal disease; I10 Essential (primary) hypertension; I48.91 Unspecified atrial fibrillation; E11.69 Type 2 diabetes mellitus with other specified complication | CPT/HCPCS: 99212; A9270; G0463 ==

== ENCOUNTER 2024-12-24 07:38 | Observation (INO) | payer OTHER, MEDICAID, SELFPAY ==
[2024-12-24] VITALS (23 sets, daily range): BP systolic 95–181; BP diastolic 64–95; PULSE 60–111; RESP 12–99; TEMP 36.4–37.1; O2SAT 96–99; BMI 30.1
--- NOTE | 2024-12-24 | XR_ITS ---
Examinations: MRI Brain without intravenous contrast. MRA brain without intravenous contrast. MRA carotids without intravenous contrast 3-D vascular reconstructions Date and time of exam: December 24, 2024 1312 hours INDICATIONS: Ataxia episodes, headaches dizziness episodes beginning 6:00 a.m. this morning Technique: Multiple axial and sagittal images of the brain have been obtained MRA brain carotid images without contrast obtained, including 3-D postprocessing, vascular maximum intensity projection images Findings: Sellaturcica is not enlarged. The optic chiasm and infundibular stalk are not remarkable. Prepontine and interpeduncular cisterns are not enlarged. No localized enlargement of the medulla or gillian. Fourth ventricle and cerebellar tonsils normal in position. Subacute hemorrhage is not seen. Fourth ventricle is midline. Mass in the cerebellopontine angle region is not evident. 7th and 8th nerve complexes exhibits symmetry. Globes are symmetrical with no retro-orbital mass. Increased white matter signal moderate Diffusion-weighted images demonstrate no focus of restricted diffusion Mass-effect upon the ventricular system is not identified. MRA carotid images no critical stenoses. MRA brain images no large vessel occlusions Impression: Negative for acute hemorrhage, mass effect or midline shift No acute infarct Moderate chronic microvascular white matter change No cerebral large vessel arterial occlusions
--- NOTE | 2024-12-24 08:01 | EKG_ITS ---
[facility] (Formerly [facility]) Test Date: 2024-12-24 Pat Name: COLBY LEÓN Department: Room: - Gender: Male Embedded Developer: : 1950 Requested By: Arnulfo Pérez (GRIT BLASTER) Order Number: [id number] Reading MD: Arnulfo Pérez (GRIT BLASTER) Measurements Intervals Bruno Rate: 64 P: 70 UT: 189 QRS: -12 QRSD: 106 T: 61 QT: 422 QTc: 437 Interpretive Statements SINUS RHYTHM MINIMAL VOLTAGE CRITERIA FOR LVH, CONSIDER NORMAL VARIANT [MEETS CRITERIA IN ONE OF: R(aVL), S(V1), R(V5), R(V5/V6)+S(V1)] Compared to ECG 06/03/2024 11:05:19 Right-axis deviation no longer present /store/S0/[id number].pdf
--- NOTE | 2024-12-24 08:02 | XR_ITS ---
Examination: CT brain head without contrast. 2-D sagittal coronal reconstructions Date and time of exam: December 24, 2024, 0813 hours INDICATIONS: Onset generalized head pain and dizziness today CTDI: vol (mGy): 52.2 DLP: (mGycm): 1031 Technique: Multiple CT axial sections of the brain have been obtained, 5 mm slice thickness. Contrast has not been administered. 2-D sagittal, coronal reconstructions have been obtained Low dose protocols were performed. One or more of the following dose reduction techniques were used; automated exposure control, adjustment of the mA and/or KV according to patient size, use of iterative reconstruction technique. Findings: No significant ventricular enlargement. Intra-axial or extra-axial hemorrhage density is not seen. No mass effect or midline shift Basal cisterns are not remarkable. Fourth ventricle is midline. Cranial vault intact. Chronic left mastoiditis Chronic ethmoid sinusitis Impression: Negative for acute hemorrhage, mass effect or midline shift Advise clinical correlation and follow-up accordingly
--- NOTE | 2024-12-24 08:33 | PC.NURSE ---
PT CAME IN WTH C/O DIFFICULTY WALKING SINCE 6AM WHEN HE GOT UP FROM BED. PT STATES HE FELL IN AND HAS HAD INTERMITTENT DIZZINESS SINCE THEN AND FEELS LIKE HE IS WALING TO THE LEFT. BILAT ARM MEAT AND POULTRY INSPECTOR AND LEG PUSHED EQUAL IN STRENGTH. PT ABLE TO HOLD EXTREMITIES UP WITH NO DIFFICULTLY BUT WHEN PT WAS ASKED TO STAND AND WALK PT HAD DIFFICULTY WALKING AND DID FAVOR THE LEFT. CT IN PROGRESS. PT ALERT AND ORIENTED X3. NO DISTRESS NOTED AT THIS TIME.
[2024-12-24 08:46] LABS: Basophils # (Auto) 0.0 Thou/mm3 (0.0-0.2); Basophils % (Auto) 1 % (0-2.5); Eosinophils # (Auto) 0.3 Thou/mm3 (0.0-0.5); Eosinophils % (Auto) 5 % (0-10); Hematocrit 42.6 % (41.0-53.0); Hemoglobin 14.3 g/dL (13.5-16.0); Immature Granulocytes Auto 0.01 Thou/mm3 (0.00-0.00); Lymphocytes # (Auto) 1.2 Thou/mm3 (1.0-4.8); Lymphocytes % (Auto) 22 % (10-50); Mean Corpuscular HGB Conc 33.6 g/dl (31.0-37.0); Mean Corpuscular Hemoglobin 29.9 pg (25.0-35.0); Mean Corpuscular Volume 89 fL (80-100); Monocytes # (Auto) 0.4 Thou/mm3 (0.0-0.8); Monocytes % (Auto) 7 % (0-12); Neutrophils # (Auto) 3.7 Thou/mm3 (1.8-7.7); Neutrophils % (Auto) 66 % (37-80); Nucleated Red Blood Cell # 0.00 Thou/mm3 (0.00-0.00); Nucleated Red Blood Cell % 0 /100 WBC (0); Platelet Count 162 Thou/mm3 (140-440); RDW Standard Deviation 43.5 fL (35.1-43.9); Red Blood Count 4.79 Miln/mm3 (4.50-5.90); White Blood Count 5.6 Thou/mm3 (3.8-10.6)
--- NOTE | 2024-12-24 08:51 | PD.EDDIZZY ---
ED Dizzyness RME/HPI General Chief Complaint: General Adult/Misc Complain Stated Complaint: CAN'T PROPERLY WALK Time Seen by Provider: 12/24/24 08:21 Arrival date/time: 12/24/24 07:38 RME / HPI RME / HPI Narrative: MAIN ED EVALUATION - Dr. Pablo, 0842hrs 74-year-old male with a history of infective endocarditis, end stage renal disease on hemodialysis (Sunday, Sunday, Sunday), hypertension, diabetes, and atrial fibrillation presented after self-transport with dizziness, mild headache, and difficulty ambulating that was first noted on awakening at 06:00 and has persisted since then for several hours now. He reports a similar episode approximately two weeks ago that lasted about one hour and resolved. Associated symptoms include nausea without vomiting or other acute complaints; patient denies weakness. History is obtained directly from the patient. Related Data Home Medications ?Medication ?Instructions ?Recorded ?Confirmed atorvastatin 80 mg tablet 80 mg PO QPM 04/21/23 06/01/24 ferrous sulfate 325 mg (65 mg 325 mg PO TID 04/21/23 06/01/24 iron) tablet furosemide 40 mg tablet 40 mg PO QDAY 04/21/23 06/01/24 gabapentin 300 mg capsule 300 mg PO BID 04/21/23 06/01/24 metoprolol succinate 50 mg 50 mg PO QDAY 04/21/23 06/01/24 tablet,extended release 24 hr B complex-vitamin C-folic acid 0.8 tab PO DAILY sUPPLEMENT 06/01/24 06/01/24 amlodipine 10 mg tablet 10 mg PO .QD 06/01/24 06/01/24 aspirin 81 mg tablet,delayed 81 mg PO QDAY 06/01/24 06/01/24 release calcium acetate(phosphat bind) 667 667 mg PO TID 06/01/24 06/01/24 mg capsule glipizide 2.5 mg tablet, extended 2.5 mg PO QAM 06/01/24 06/01/24 release 24 hr Previous Rx's ?Medication ?Instructions ?Recorded blood-glucose meter (Accu-Chek #1 ea 05/06/23 Guide Glucose Meter) insulin glargine 100 unit/mL (3 35 unit (0.35 mL) subcut QPM #15 mL 05/06/23 mL) subcutaneous pen (Lantus Solostar U-100 Insulin) insulin lispro 100 unit/mL 1 sliding scale dose subcut 05/06/23 subcutaneous pen (Admelog SoloStar USEASDIRECTD #15 mL U-100 Insulin lispro) lancets 28 gauge (Comfort EZ #100 ea 05/06/23 Lancets) pen needle, diabetic 31 gauge x #1,200 ea 05/06/23 3/16 (BD Ultra-Fine Mini Pen Needle) blood sugar diagnostic (Accu-Chek #50 ea 05/07/23 Guide test strips) Allergies Allergy/AdvReac Type Severity Reaction Status Date / Time No Known Allergies Allergy Verified 12/24/24 07:52 Review of Systems Review of Systems Systems Reviewed: All systems reviewed, normal except as documented Past Medical History Past Medical History CARDIAC: Positive Cardiac Disorders, Hypercholesterolemia, Congestive Heart Failure, Hypertension and Hypotension RESPIRATORY: Positive Asthma GENITOURINARY: Positive Renal Disease and Dialysis (MWF / at [facility] ENDOCRINE: Positive Diabetes Mellitus Type 2 HEMATOLOGIC: Positive Anemia OTHER HISTORY: Positive Hospitalization, Falls and Blood Transfusions Social History SMOKING STATUS: Never smoker SUBSTANCE USE: does not use Past Medical History Comments PMH COMMENT: - Infective endocarditis - End stage renal disease on hemodialysis (Sunday, Sunday, Sunday) - Hypertension - Diabetes - Atrial fibrillation ED Exam Narrative Physical exam: General: Lying in bed, appears comfortable, no acute distress. Eyes: Extraocular movements intact; pupils equal, round, reactive to light; no nystagmus. HENT: Atraumatic. Moist mucous membranes. Neck: Atraumatic, supple. Cardiac: Regular rate and rhythm. Respiratory: Lungs clear to auscultation bilaterally. No respiratory distress. Abdomen: Abdomen soft, nontender, nondistended. MS: Extremities atraumatic. Skin: No exanthems, no cyanosis, no diaphoresis. Back exam: Atraumatic. Neurologic: Alert and oriented x3; CN 2-12 GIBL; Romberg positive with fall to left; strength 5/5 in bilateral upper and lower extremities; rapid alternating hand movements and [id number] normal bilaterally. Psychological: Cooperative and participatory with examination. Course Course Course Narrative: 1100h: Labs without significant acute concerning abnormalities. CT brain is negative. Given patient's symptomatology with risk factors, MRI brain ordered to rule out posterior circulation stroke. NIHSS 0. 1225h: Teleneurologist Dr. Anderson has evaluated the patient. He recommends admission for further work up, MRI stroke protocol, and starting Aspirin and Plavix. 1228h: I spoke with hospitalist team A for admission. Quality Measures Suspected type of Stroke: Non Acute Last known well (date): 12/23/24 Last known well (time): 21:00 Tenecteplase given: Reason(s) TPA not given: Outside the time window not given stroke Orders Category Date Time Status Admit to Inpatient Status Routine Admission 12/24/24 13:27 Active Patient Condition Routine Admission 12/24/24 13:27 Ordered COVID-19 Screening Questionnaire NOW Care 12/24/24 12:56 Active Licensed Investment Sales Assistant NOW Care 12/24/24 08:02 Active EKG (ED ONLY) *Do not use* NOW Care 12/24/24 08:01 Completed MRI Screening NOW Care 12/24/24 11:04 Active MRI Screening NOW Care 12/24/24 12:25 Completed Miscellaneous Nursing Order NOW Care 12/24/24 13:27 Active Notify provider NEEDED Care 12/24/24 13:27 Active Consult to Neurology / Tele-Neurology Stat Cons 12/24/[address] 11:[address] head/brain wo con Stat Exams 12/24/24 08:02 Completed EKG (ED Only) Stat Exams 12/24/24 08:01 Draft MR stroke protocol brain wo con with MRA head and neck Exams 12/24/24 Completed Stat B-Type Natriuretic Peptide Stat Lab 12/24/24 08:31 Completed CBC Stat Lab 12/24/24 08:31 Completed Comprehensive Metabolic Panel Stat Lab 12/24/24 08:31 Completed Magnesium Stat Lab 12/24/24 08:31 Completed Partial Thromboplastin Time Stat Lab 12/24/24 08:31 Completed Prothrombin Time with INR Stat Lab 12/24/24 08:31 Completed Troponin I Stat Lab 12/24/24 08:31 Completed Urinalysis, C/S if Indicated Stat Lab 12/24/24 10:31 Completed Aspirin Med 12/24/24 12:27 Discontinued 325 mg PO X1 ONE Meclizine HCl [Antivert] Med 12/24/24 11:03 Discontinued 50 mg PO X1 ONE Code Status Routine Oth 12/24/24 13:27 Ordered Vital Signs Vital signs: Vital Signs Temperature 97.6 F 12/24/24 07:57 Pulse Rate 66 12/24/24 07:57 Respiratory Rate 18 12/24/24 07:57 Blood Pressure 159/69 H 12/24/24 07:57 Pulse Oximetry (%) 99 12/24/24 07:57 Oxygen Delivery Method Room Air 12/24/24 07:57 Pulse ox is 99% on room air which is adequate. Dizziness Patient data External records reviewed:: [facility] previous records (I reviewed admission from 06/01/2024 through 06/05/2024 for admitted for acute bacterial infection. ) Clinical information provided by:: patient Social determinants that could affect healthcare access:: none Patient has the following chronic illnesses:: infective endocarditis, end stage renal disease on hemodialysis (Sunday, Sunday, Sunday), hypertension, diabetes, and atrial fibrillation How is presenting disease/condition affected by chronic disease/condition?: exacerbated by Evaluation data The following diagnostics were reviewed and interpreted by me:: lab results, radiology exam(s) and EKG tracing(s) (EKG @ 08:01h, interpreted by me, normal sinus rhythm, rate 64, no STEMI. ) Lab and/or radiology exams considered but not ordered:: None Interpretation Summary: Ordering Physician: Elisa POWELL)Arnulfo NP Date of Service: 12/24/24 Procedure(s): CT head/brain wo con Accession Number(s): [id number] cc: Elisa POWELL)Arnulfo NP; Michael Horton MD~ Examination: CT brain head without contrast. 2-D sagittal coronal reconstructions Date and time of exam: December 24, 2024, 0813 hours INDICATIONS: Onset generalized head pain and dizziness today CTDI: vol (mGy): 52.2 DLP: (mGycm): 1031 Technique: Multiple CT axial sections of the brain have been obtained, 5 mm slice thickness. Contrast has not been administered. 2-D sagittal, coronal reconstructions have been obtained Low dose protocols were performed. One or more of the following dose reduction techniques were used; automated exposure control, adjustment of the mA and/or KV according to patient size, use of iterative reconstruction technique. Findings: No significant ventricular enlargement. Intra-axial or extra-axial hemorrhage density is not seen. No mass effect or midline shift Basal cisterns are not remarkable. Fourth ventricle is midline. Cranial vault intact. Chronic left mastoiditis Chronic ethmoid sinusitis Impression: Negative for acute hemorrhage, mass effect or midline shift Advise clinical correlation and follow-up accordingly Dictated By:Michael Horton MD Signed By:<Electronically signed by Michael Horton MD in OV>12/24/24 0948 Medications / Prescriptions Medications or Prescriptions considered but not ordered:: None Medication administrations:: Medication Administration History Discontinued Medications Aspirin (Aspirin 325 Mg Tablet) 325 mg PO X1 ONE Stop: 12/24/24 12:28 Last Admin: 12/24/24 12:55 Dose: 325 mg Documented By: BD Meclizine HCl (Meclizine Hcl 25 Mg Tablet) 50 mg PO X1 ONE Stop: 12/24/24 11:04 Last Admin: 12/24/24 11:33 Dose: 50 mg Documented By: LF See above Consultations Consultation(s) initiated? (list below): Yes Consultation #1 (Physician, Specialty, Details): See course Diagnosis Dizziness Differential Diagnosis: adverse reaction to drug, benign paroxysmal positional vertigo, orthostatic hypotension, cerebrovascular accident and transient cerebral ischemia Most likely diagnosis given after review of the tests above:: Dizziness Abnormal gait Admission Indicated Admission indicated?: indicated Admission Request Was there a request for admission?: Yes Admission Attestation Admission request attestation: Discussed case with [] from Hospitalist service regarding admission. Discussed patients ED course, exam findings, labs, and radiology results. The Hospitalist [agrees,declines] to accept the patient for admission. Disposition Plan Disposition Plan: Admit Discharge Plan Plan Patient Disposition: Admit Acute Care w/in Hospital Patient condition on transfer: Stable Problem List Clinical Impression: Dizziness, Abnormal gait
[2024-12-24 09:02] LABS: INR 1.0 (0.9-1.3); Partial Thromboplastin Time 27.9 Seconds (22.0-36.0); Prothrombin Time 10.7 Seconds (9.0-12.2)
[2024-12-24 09:06] LABS: Alanine Aminotransferase 40 U/L (10-49); Albumin, Serum 4.8 gm/dL (3.4-4.8); Albumin/Globulin Ratio 1.6 (1.2-2.2); Alkaline Phosphatase 105 U/L (46-116); Anion Gap 13 (7-16); Aspartate Amino Transferase 28 U/L (0-34); B-Type Natriuretic Peptide 176 pg/mL (0-100); BUN/Creatinine Ratio 13 Ratio (12-20); Bilirubin,Total 0.3 mg/dL (0.3-1.2); Blood Urea Nitrogen 76 mg/dL (9-23); Calcium 9.1 mg/dL (8.3-10.6); Calcium (Corrected) 9.1 mg/dL (8.5-10.1); Carbon Dioxide 23.2 mMol/L (20.0-31.0); Chloride 102 mMol/L (98-107); Creatinine (Component) 5.9 mg/dL (0.6-1.3); Estimated Creatinine Clearance 9.1 mL/min (>60); Globulin 3.0 gm/dL (2.3-3.5); Glucose 166 mg/dL (74-106); Magnesium 2.2 mg/dL (1.6-2.6); Osmolality,Calculated 302 (275-295); Potassium 4.9 mMol/L (3.4-5.1); Sodium 138 mMol/L (136-145); Total Protein 7.8 gm/dL (5.7-8.2); Troponin I < 0.020 ng/mL (0.0-0.045); eGFR 9 See Note
--- NOTE | 2024-12-24 10:00 | PC.NURSE ---
PATIENT INFORMED THAT UA WAS NEEDED. STATES HE WILL TRY AT THIS TIME.
--- NOTE | 2024-12-24 10:31 | PC.NURSE ---
UA COLLECTED AT THIS TIME AND SENT TO LAB
[2024-12-24 10:48] LABS: Collection Type, Urine Clean Catch; Squamous Epithelial Cell,Urine 0 /hpf (0-5)
[2024-12-24 11:04] LABS: Bacteria,Urine Rare; Bilirubin,Urine Negative (Negative); Blood,Urine Negative (Negative); Clarity,Urine Clear (Clear/Hazy); Color,Urine Colorless (Lt Yel-Yel); Culture Indicated,Urine Not Indicated; Glucose, Urine 1+ (Negative); Ketones,Urine Negative (Negative); Leukocyte Esterase,Urine Negative (Negative); Nitrite,Urine Negative (Negative); PH,Urine 7.5 (5.0-7.0); Protein,Urine 2+ (Neg - Trace); RBC,Urine 6 /hpf (0-3); Specific Gravity,Urine 1.010 (1.001-1.035); Urobilinogen,Urine Negative mg/dL (0.0-1.0); WBC,Urine < 1 /hpf (0-5)
[2024-12-24] MEDS: MECLIZINE HCL 25 MG TABLET 50 MG PO (11:33)
--- NOTE | 2024-12-24 12:24 | PC.NURSE ---
PT BEING EVALUATED BY TELE NEURO SPECIALIST AT THIS TIME. ATTEMPTED TO AMBULATE PT. PT STILL SLIGHTLY DIZZY. STATES THE MECLIZINE DID HELP A LITTLE BUT STILL STATES WHEN HE STANDS HE FEELS LIKE HE IS GOING TO FALL FORWARD. PT PLACED BACK IN BED. FUTHER WORKUP ORDERED TO R/O STROKE
--- NOTE | 2024-12-24 12:27 | ESCONSULT_ITS ---
Tele Neuro Consultation Consultation Date 12/24/24 Most Recent Vital Signs Last Vital Signs Temp 98.0 F 12/24/24 10:02 Pulse 60 12/24/24 10:02 Resp 12 12/24/24 10:02 BP 169/69 H 12/24/24 10:02 Pulse Ox 96 12/24/24 10:02 O2 Del Method Room Air 12/24/24 10:02 Laboratory-Coagulation Panel PT 10.7 Seconds (9.0-12.2) 12/24/24 08:31 INR 1.0 (0.9-1.3) 12/24/24 08:31 APTT 27.9 Seconds (22.0-36.0) 12/24/24 08:31 Consultation Narrative [facility] Tele[facility]rology Consult [facility] Patient Name:???Vipul Gore Date of :???1950 Identification Number:??? Date of Service:???12/24/2024 11:57:20 Diagnosis:?R42 - Dizziness/ Vertigo/ Giddiness Impression: ?74yo man w/PMH of ESRD on HD, HTN, DM, Afib p/w dizziness, unsteady gait on 12/24/24. He states he woke up with spinning dizziness and unsteady gait so he came to the ED. He last felt normal when he went to sleep at 21:00 on 12/23/24. He had a similar brief prior episode two weeks ago, lasting an hour. He has also had subtle imbalance with turning for the past 3 months. He has mild improvement with the dizziness in the ED. He admits to occipital headache. He otherwise denies complaints. He is not sure why his aspirin was stopped several months ago. He got meclizine in the ED. NIHSS 0. CT Head has no acute findings. Pt is not a candidate for thrombolytics due to being out of the 4.5 hour window. Presentation is concerning for TIA or acute small vessel ischemic stroke based on history and exam, MRI Brain advised. Other possibilities include peripheral vertigo, vestibular migraine, cervicgenic dizziness, infectious or metabolic encephalopathy. Plan listed below was recommended to the ED physician by phone. Our recommendations are outlined below. Recommendations: ? Stroke/Telemetry Floor ? Neuro Checks (Q4) ? Bedside Swallow Eval ? DVT Prophylaxis ? IV Fluids, Normal Saline ? Head of Bed 30 Degrees ? Euglycemia and Avoid Hyperthermia (PRN Acetaminophen) ? Bolus with Clopidogrel 300 mg bolus x1 and initiate dual antiplatelet therapy with Aspirin 81 mg daily and Clopidogrel 75 mg daily ? Antihypertensives PRN if Blood pressure is greater than 220/120 or there is a concern for End organ damage/contraindications for permissive HTN. If blood pressure is greater than 220/120 give labetalol PO or IV or Vasotec IV with a goal of 15% reduction in BP during the first 24 hours. ?Routine MRI Brain, MRA Head/Neck without contrast to assess for stroke ?TTE (if not recently done) ?Lipid Profile, A1C ?PT/OT, Speech/Swallow evaluation ?Infectious/metabolic workup and management as per primary team Sign Out: ? Discussed with Emergency Department Provider Advanced Imaging: Advanced Imaging Deferred because: Advanced Imaging not obtained at this time. Reason: Not a candidate due to low NIHSS (<6) and no cortical deficits so not consistent with LVO Metrics: Last Known Well: 12/23/2024 21:00:00 Arrival Time: 12/24/2024 07:38:00 Initial Response Time: 12/24/2024 11:59:00Symptoms: dizziness, unsteady gait. Initial patient interaction: 12/24/2024 12:10:00 NIHSS Assessment Completed: 12/24/2024 12:17:10Patient is not a candidate for Thrombolytic. Thrombolytic Medical Decision: 12/24/2024 12:17:11Patient was not deemed candidate for Thrombolytic because of following reasons: LKW outside [address] Head: I personally reviewed all the CT images that were available to me and it showed: no acute findings Primary Provider Notified of Diagnostic Impression and Management Plan on: 12/24/2024 12:25:39 History of Present Illness:Patient is a 74 year old Male. Patient was brought by private transportation with symptoms of dizziness, unsteady gait. 74yo man w/PMH of ESRD on HD, HTN, DM, Afib p/w dizziness, unsteady gait on 12/24/24. He states he woke up with spinning dizziness and unsteady gait so he came to the ED. He last felt normal when he went to sleep at 21:00 on 12/23/24. He had a similar brief prior episode two weeks ago, lasting an hour. He has also had subtle imbalance with turning for the past 3 months. He has mild improvement with the dizziness in the ED. He admits to occipital headache. He otherwise denies complaints. He is not sure why his aspirin was stopped several months ago. He got meclizine in the ED. Past Medical History: Other PMH:? see hpi Medications: No Anticoagulant use? No Antiplatelet use Reviewed EMR for current medications Allergies:? Reviewed Social History: Drug Use: No Family History: There is no family history of premature cerebrovascular disease pertinent to this consultation ROS : 14 Points Review of Systems was performed and was negative except mentioned in HPI. Past Surgical History: There Is No Surgical History Contributory To Today?s Visit Examination: BP(173/80),?Pulse(65),?Blood Glucose(166) 1A: Level of Consciousness - Alert; keenly responsive?+ 0 1B: Ask Month and Age - Both Questions Right?+ 0 1C: Blink Eyes & Squeeze Hands - Performs Both Tasks?+ 0 2: Test Horizontal Extraocular Movements - Normal?+ 0 3: Test Visual Burr - No Visual Loss?+ 0 4: Test Facial Palsy (Use Grimace if Obtunded) - Normal symmetry?+ 0 5A: Test Left Arm Motor Drift - No Drift for 10 Seconds?+ 0 5B: Test Right Arm Motor Drift - No Drift for 10 Seconds?+ 0 6A: Test Left Leg Motor Drift - No Drift for 5 Seconds?+ 0 6B: Test Right Leg Motor Drift - No Drift for 5 Seconds?+ 0 7: Test Limb Ataxia (FNF/Heel-Yin) - No Ataxia?+ 0 8: Test Sensation - Normal; No sensory loss?+ 0 9: Test Language/Aphasia - Normal; No aphasia?+ 0 10: Test Dysarthria - Normal?+ 0 11: Test Extinction/Inattention - No abnormality?+ 0 NIHSS Score:?0 NIHSS Free Text :?gait ataxia Pre-Morbid Modified Walland Scale: 0 Points = No symptoms at all Spoke with :?ED MD This consult was conducted in real time using interactive audio and video technology. Patient was informed of the technology being used for this visit and agreed to proceed. Patient located in hospital and provider located at home/office setting. Patient is being evaluated for possible acute neurologic impairment and high probability of imminent or life-threatening deterioration. I spent total of 35 minutes providing care to this patient, including time for face to face visit via telemedicine, review of medical records, imaging studies and discussion of findings with providers, the patient and/or family. Dr Bird Anderson [facility] For Inpatient follow-up with [facility] physician please call [facility] at . As we are not an outpatient service for any post hospital discharge needs please contact the hospital for assistance. If you have any questions for the [facility] physicians or need to reconsult for clinical or diagnostic changes please contact us via [facility] at . Non-radiologist review of imaging performed to assist with emergent clinical decision-making. Remote physician workstations do not possess the same resolution, calibration, or diagnostic capabilities as hospital-based radiology reading stations, and formal radiologist read is necessary. Signature :Grace Anderson
--- NOTE | 2024-12-24 13:39 | ECHO_ITS ---
Patient Info Name: Vipul Mcfadden Age: 74 years : 1950 Gender: Male Ht: 152 cm Wt: 70 kg BSA: 1.75 m2 BP: 152 / 76 mmHg HR: 65 bpm Exam Date: 12/24/2024 3:03 PM Admit Date: 12/24/2024 Site: [facility] Room Number: ED Patient Status: I Exam Type: CA echo doppler complete Utilities Manager: Mary Simon Ordering Physician: Nancy Stanley Study Info Indications Stroke protocol with bubble study - Primary Location: [facility] Left Ventricular Outflow Tract Name Value Normal LVOT 2D LVOT Diameter 1.9 cm LVOT Doppler LVOT Peak Velocity 105 cm/s LVOT Mean Gradient 2 mmHg LVOT VTI 23 cm LVOT VTI/AV VTI Ratio 0.6 LVOT Stroke Volume 66 ml Pulmonic Valve Name Value Normal PV Doppler PV Peak Velocity 100 cm/s Mitral Valve Name Value Normal MV Doppler MV Decel Grant 342 cm/s2 MV PHT 61 ms MV Area (PHT) 3.6 cm2 4.0-5.0 MV Diastolic Function MV E Peak Velocity 72 cm/s MV A Peak Velocity 111 cm/s MV E/A 0.7 MV Annular TDI MV Septal e' Velocity 5.4 cm/s MV E/e' (Septal) 13.3 MV Lateral e' Velocity 9.3 cm/s MV E/e' (Lateral) 7.8 MV e' Average 7.35 cm/s MV E/e' (Average) 10.6 Tricuspid Valve Name Value Normal TV Regurgitation Doppler TR Peak Velocity 262 cm/s Estimated PAP/RSVP RA Pressure 8 mmHg <=5 PA Systolic Pressure 35 mmHg <36 RV Systolic Pressure 35 mmHg <36 TV Annular TDI TV Lateral Arlene s' Velocity 14.9 cm/s >=9.5 Aortic Valve Name Value Normal AV 2D/MM AV Cusp Sep (MM) 1.1 cm AV Doppler AV Peak Velocity 164 cm/s AV Mean Gradient 6 mmHg AV VTI 41 cm AV Area (Cont Eq VTI) 1.6 cm2 >=3.0 AV Area (Cont Eq Andry) 1.8 cm2 AV DI (Andry) 0.64 AV Regurgitation 2D LVOT Area 2.8 cm2 AV Regurgitation Doppler AR Decel Grant 189 cm/s2 AR PHT 500 ms Ventricles Name Value Normal LV Dimensions 2D/MM IVS Diastolic Thickness (2D) 1.0 cm 0.6-1.0 LVID Diastole (2D) 4.5 cm 4.2-5.8 LVIW Diastolic Thickness (2D) 1.2 cm 0.6-1.0 LVID Systole (2D) 3.1 cm 2.5-4.0 LVOT Diameter 1.9 cm LV Mass (2D Cubed) 175.02 g 88.00-224.00 LV Mass Index (2D Cubed) 100 g/m2 49-115 Relative Wall Thickness (2D) 0.53 <=0.42 IVS/LVIW Diastolic Thickness (2D) 0.83 0.00-1.50 LV Fractional Shortening/Ejection Fraction 2D/MM LV Fractional Shortening (2D) 31 % 25-43 LV EF (2D Teichholz) 59 % RV Dimensions 2D/MM TV Lateral Arlene s' Velocity 14.9 cm/s >=9.5 Atria Name Value Normal LA Dimensions LA Volume (4C A-L) 79 ml LA Volume (BP A-L) 80 ml Left Ventricle Left ventricular chamber dimension is normal. Left ventricular systolic function is normal with visually estimated ejection fraction of 60-65%. There is concentric remodeling noted in the left ventricle. Left ventricular segmental wall motion is normal. There is grade I diastolic dysfunction in the left ventricle. Right Ventricle Right ventricular chamber dimension is normal. Right ventricular systolic function is normal. Left Atrium Left atrial chamber dimension is moderately enlarged. Right Atrium Right atrial chamber dimension is normal. Aortic Valve The aortic valve is trileaflet. There is mild aortic valve sclerosis. There is no aortic valve stenosis with a peak velocity of 164 cm/s, mean gradient of 6 mmHg, and aortic valve area of 1.6 cm2. There is mild aortic valve regurgitation. Pulmonic Valve The pulmonic valve is normal. There is no pulmonic valve stenosis. There is no pulmonic regurgitation. Mitral Valve The mitral valve has thickened leaflets. There is no mitral valve stenosis. There is mild mitral valve regurgitation. Tricuspid Valve The tricuspid valve leaflets are normal. There is no tricuspid valve stenosis. There is mild tricuspid valve regurgitation. No pulmonary hypertension, estimated pulmonary arterial systolic pressure is 35 mmHg and systemic blood pressure of 152 mmHg in systole. Pericardium/Pleural The pericardium appears normal. There is no pericardial effusion. No pleural effusion visualized. Inferior Vena Cava Normal inferior vena cava with >50% collapse upon inspiration consistent with normal right atrial pressure, 8 mmHg. Aorta The aortic measurements are indexed to age and body surface area. The aortic root at the sinus of Valsalva is not well visualized. The prox ascending aorta is not well visualized. Summary 1. Left ventricle size is normal and systolic function is normal. Estimated ejection fraction is 60-65%. There is grade I diastolic dysfunction. 2. Right ventricle chamber size is normal and systolic function is normal. Estimated RVSP is 35 mmHg. Mild HTN. 3. There is mild aortic valve sclerosis with no stenosis and mild regurgitation. 4. There is mild mitral valve regurgitation. 5. The mitral valve has thickened leaflets. 6. There is mild tricuspid valve regurgitation. 7. Normal IVC with estimated RA pressure 8 mmHg. 8. Bubble study negative previous study 05/2024. Report Signatures Finalized by Rebecca Torres on 12/25/2024 12:03 PM
--- NOTE | 2024-12-24 13:59 | PC.NURSE ---
Blower Room Attendant: Late entry at 1400 for 1150: Rounding in ED - discussed this patient with ED MD. Decision to obtain Neuro consult. Case # [id number] created with [facility]. Neuro on camera at approx 1205 - explained background and accompanied cart to room for an evaluation. Please see Neurology notes. Recommends an MRI - suggested the MR order be changed to the stroke protocol. Discussed case with MRI, pt will be next.
--- NOTE | 2024-12-24 14:12 | PC.SS ---
Patient Vipul Mcfadden is a 74 Year old male admitted for Cant Properly Walk SS met with patient at bedside to verify demographic information discuss discharge plan. Patient appeared to be alert and oriented to person palace and situation. Patient reports he lives at home with his , Jacquie Marie who he reports is his surrogate decision maker, [phone]. Patient reports that prior to coming to the hospital he was able to complete all ADL's independently, patient reports he does not utilize any source of DME to assist with ambulation. Choice of pharmacy is [facility]. Patient reports his PCP is Dr. Jhonathna Florian at [facility]. Patient reports once he is medically cleared he would like to discharge back home. Family will provide transportation. Discharge plan: Home Next of kin: , Jacquie Marie [phone] PCP: Dr. Jhonathan Florian
--- NOTE | 2024-12-24 15:00 | PC.NURSE ---
ATTEMPTED TO CALL REPORT RN AT [facility].
--- NOTE | 2024-12-24 16:19 | PD.RESHP ---
Documentation for date of: 12/24/24 HPI History of Present Illness History of present illness: Patient is a Urdu-speaking 74-year-old male with past medical history of ESRD on HD M/W/F, hypertension, type 2 diabetes, afib, unsteady gait who presented to the ED on 12/24/2024 with dizziness and headache along with difficulty ambulating that was first noted when the patient woke up at 6:00 am and still persistent since coming into the ED. Last known normal was around 21:00 last night when he went to sleep. Patient had another episode about 2 weeks ago that lasted about an hour and self-resolved. ED Course: -Initial vitals were BP 159/69, HR 66, RR 18, Temp 97.6, O2 sat 99% -Labs significant for normal CBC, normal CMP other than creatinine 5.9, GFR 9 consistent with ESRD, BNP 176, troponin normal -UA showed 2+ protein, 1+ glucose, negative for leukocyte esterase -EKG was normal sinus rhythm with a rate of 64 -CT head was negative -Teleneuro evaluated the patient in ED and NIHSS was 0 at that time, did not recommend thrombolytics due to outside window -In the ED, patient was given meclizine 50 mg x1 and aspirin 325 mg x1 -Patient was admitted for rule out of acute ischemic stroke Review of Systems Review of systems otherwise negative except what is mentioned above. Review of Systems Review of Systems Systems Reviewed: All systems reviewed, normal except as documented Past Medical History Past Medical History CARDIAC: Positive Cardiac Disorders, Hypercholesterolemia, Congestive Heart Failure, Hypertension and Hypotension RESPIRATORY: Positive Asthma GENITOURINARY: Positive Renal Disease and Dialysis (MWF / at [facility]) ENDOCRINE: Positive Diabetes Mellitus Type 2 HEMATOLOGIC: Positive Anemia OTHER HISTORY: Positive Hospitalization, Falls and Blood Transfusions Social History SMOKING STATUS: Never smoker SUBSTANCE USE: does not use Past Medical History Comments PMH COMMENT: - Infective endocarditis - End stage renal disease on hemodialysis (Sunday, Sunday, Sunday) - Hypertension - Diabetes - Atrial fibrillation Exam Vital Signs Temp Pulse Resp BP Pulse Ox O2 Del Method 97.7 F 69 18 113/71 96 Room Air 12/24/24 15:33 12/24/24 16:15 12/24/24 15:33 12/24/24 16:15 12/24/24 15:33 12/24/24 13:52 Narrative Exam Physical Exam General: Awake and in no acute distress. Conversational and non-toxic appearing. HEENT: Normocephalic, atraumatic, mucous membranes moist. Heart: Regular rate and rhythm, normal S1 and S2, no murmurs. Lungs: Clear to auscultation with no wheezing or crackles. Abdomen: Soft, nondistended, nontender, positive bowel sounds. ?No guarding or rebound tenderness. Neuro Stroke Exam: -Alert and oriented x3. -CN II-XII intact. -Normal visual menjivar. -Normal fluent speech. -No facial droop. -Strength 5/5 bilateral arms, 5/5 marine electronics repairer strength. -Strength 5/5 bilateral lower extremities. -Intact sensation bilaterally. -Normal jwawik-bd-uoop, normal seky-np-uuea testing. Extremities: No edema. Skin: No rash or ecchymoses. Results: Labs 12/24/24 08:31 12/25/24 05:04 Labs: Short CBC 12/24/24 Range/Units 08:31 WBC 5.6 (3.8-10.6) Thou/mm3 Hgb 14.3 (13.5-16.0) g/dL Hct 42.6 (41.0-53.0) % Plt Count 162 (140-440) Thou/mm3 BMP 12/24/24 08:31 Sodium 138 Potassium 4.9 Chloride 102 Carbon Dioxide 23.2 BUN 76 H Creatinine 5.9 H* Glucose 166 H Calcium 9.1 Cardiac Enzymes 12/24/24 Range/Units 08:31 Troponin I < 0.020 (0.0-0.045) ng/mL Liver Function 12/24/24 Range/Units 08:31 Total Bilirubin 0.3 (0.3-1.2) mg/dL AST 28 (0-34) U/L ALT 40 (10-49) U/L Alkaline Phosphatase 105 (46-116) U/L Albumin 4.8 (3.4-4.8) gm/dL Urine 12/24/24 Range/Units 10:31 Urine Color Colorless A (Lt Yel-Yel) Urine Clarity Clear (Clear/Hazy) Urine pH 7.5 H (5.0-7.0) Ur Specific [place] 1.010 (1.001-1.035) Urine Protein 2+ A (Neg - Trace) Urine Glucose (UA) 1+ A (Negative) Quality Measures Quality Measures stroke Suspected type of Stroke: Non Acute Last known well (date): 12/23/24 Last known well (time): 21:00 Tenecteplase given: Reason(s) Tenecteplase not given: Outside the time window not given Rehab services: PT evaluation ordered and Speech Language Pathology eval ordered VTE Prophylaxis: not indicated Antithrombotic by day 2:: not indicated (describe) Statin ordered: <75 y/o high intensity dose Anticoagulation ordered for A-fib or flutter (current or hx): refused Advance care planning discussed with:: patient Medications Home Medications and Allergies Home Medications ?Medication ?Instructions ?Recorded ?Confirmed ?Type atorvastatin 80 mg tablet 80 mg PO QPM 04/21/23 12/24/24 History furosemide 40 mg tablet 40 mg PO QDAY 04/21/23 12/24/24 History gabapentin 300 mg capsule 300 mg PO BID 04/21/23 12/24/24 History metoprolol succinate 50 mg 50 mg PO QDAY 04/21/23 12/24/24 History tablet,extended release 24 hr B complex-vitamin C-folic acid 1 tab PO DAILY sUPPLEMENT 06/01/24 12/24/24 History amlodipine 10 mg tablet 10 mg PO .QD 06/01/24 12/24/24 History insulin glargine 100 unit/mL (3 See Rx Instructions .Route .COMPLEX 12/24/24 12/24/24 History mL) subcutaneous pen (Lantus Solostar U-100 Insulin) Allergies Allergy/AdvReac Type Severity Reaction Status Date / Time No Known Allergies Allergy Verified 12/24/24 07:52 Visit Medications Discontinued Medications Aspirin (Aspirin 325 Mg Tablet) 325 mg PO X1 ONE Stop: 12/24/24 12:28 Last Admin: 12/24/24 12:55 Dose: 325 mg Meclizine HCl (Meclizine Hcl 25 Mg Tablet) 50 mg PO X1 ONE Stop: 12/24/24 11:04 Last Admin: 12/24/24 11:33 Dose: 50 mg Assessment & Plan Plan Urdu-speaking 74-year-old male with past medical history of ESRD on HD M/W/F, hypertension, type 2 diabetes, afib, unsteady gait who presented to the ED on 12/24/2024 with dizziness and headache along with difficulty ambulating admitted for stroke rule out. #Acute ischemic stroke, rule out Patient presented with symptoms of dizziness, occipital headache, and gait abnormalities. CT head was negative for acute abnormalities. NIHSS was 0 on TeleNeuro evaluation MRI/MRA brain and carotids with and without contrast showed no acute infarct, moderate chronic microvascular white matter change, no cerebral large vessel arterial occlusions -Neurologist Dr. Dewey was consulted and will follow, appreciate recommendations -Admitted to Telemetry -Head of bed elevation >30 degrees -Maintain euglycemia and normal temperature -Allow for permissive hypertension below 220/120 with 25% reduction goal in first 24 hours - held home BP meds -Q4H neuro checks -Nurse swallow screen -Speech evaluation -PT evaluation -Echocardiography with bubble study ordered -Hemoglobin A1c -Lipid panel -Vitamin B12 level -Start aspirin 81 mg daily -Start atorvastatin 80 mg HS daily #ESRD on HD M// Patient follows with Dr. Espinosa -Consulted Dr. Espinosa for dialysis continuation #History of insulin dependent type 2 diabetes On admission initial glucose 166. Last A1c 6.4. Patient takes insulin for diabetes at home. -Bedside blood glucose checks ACHS -Insulin lispro sliding scale step 1, adjusted as necessary -Carb consistent low diet -A1c pending #History of afib Not on AC due to history of ulcers and GI bleed. #History of hypertension Holding home meds for permissive HTN. DVT prophylaxis: Heparin 5,000 U subQ GI prophylaxis: Not indicated Diet: Carb consistent, cardiac Fontanez: None Lines: Peripheral IV Antibiotics: None CODE STATUS: FULL Reason for hospitalization: Dizziness, stroke rule out Patient plan of care was discussed with the attending physician, Dr. Gallagher. Nancy Stanley, PGY-3 Attending Provider Attestation/Addendum I have examined the patient, reviewed labs and imaging findings, discussed the case with the resident(s), and reviewed entered orders. I agree with the plan of care as outlined in this note, with these additional summaries/recommendations: After examination of the patient and review of the clinical data, I feel that this patient needs admission to the hospital for further treatment and evaluation. Patient is a 74-year-old male with a medical history of chronic atrial fibrillation, ESRD on HD, HFpEF, DM type II, primary hypertension, dyslipidemia, and ELISA presents to [facility] emergency department on 12/24/2024 with chief complaints of dizziness, headache, and difficulty ambulating. Stroke alert was called in the emergency room. MRI brain pending and patient will be admitted for CVA rule out. Patient was given loading dose of Plavix 300 mg x 1. DAPT starting tomorrow & Will DC if no stroke confirmed. Order vascular risk factor screening. Physical therapy consultation. If no CVA identified symptoms probably related to peripheral vertigo versus vestibular migraine versus cervicogenic dizziness. Patient updated on the plan and agreement. All questions answered to satisfaction. Please see residents note for additional details and management. Dr. Elliott MD
--- NOTE | 2024-12-24 19:42 | EKG_ITS ---
[facility] Test Date: 2024-12-24 Pat Name: COLBY LEÓN Department: Room: S261A Gender: Male Informatics Analyst: DONAVON : 1950 Requested By: Juan Zheng Order Number: [id number] Reading MD: Juan Zheng Measurements Intervals [place] Rate: 102 P: UT: QRS: 6 QRSD: 102 T: 120 QT: 363 QTc: 475 Interpretive Statements ATRIAL FIBRILLATION WITH RAPID VENTRICULAR RESPONSE WITH ABERRANT CONDUCTION OR VENTRICULAR PREMATURE COMPLEXES ST DEVIATION AND MODERATE T-WAVE ABNORMALITY, CONSIDER LATERAL ISCHEMIA Compared to ECG 12/24/2024 08:01:42 Ventricular premature complex(es) now present Aberrant conduction of supraventricular beat(s) now present T-wave abnormality now present Possible ischemia now present Sinus rhythm no longer present /store/S0/[id number]/ecg/[id number].pdf
--- NOTE | 2024-12-24 19:45 | PC.NURSE ---
DR. RYAN NOTIFIED OF PT POSSIBLY CONVERTED TO AFIB WITH FREQUENT PVC'S HR 90-110'S. NO CP. ORDERS FOR EKG GIVEN.
[2024-12-24] MEDS: ATORVASTATIN CALCIUM 20 MG TABLET 80 MG PO (20:44)
[2024-12-24] MEDS: HEPARIN SOD INJ 5000 UNIT/ML VIAL SC (20:44)
--- NOTE | 2024-12-24 22:44 | ESPR_ITS ---
Documentation for date of: 12/24/24 Subjective Subjective Interval history: Patient is in [facility], no new symptoms reported. Exam - Neurology Vital Signs Temp Pulse Resp BP Pulse Ox O2 Del Method 98.7 F 65 20 169/88 H 99 Room Air 12/24/24 20:00 12/24/24 21:01 12/24/24 21:01 12/24/24 20:00 12/24/24 20:00 12/24/24 20:00 Narrative Exam GENERAL APPEARANCE: Well hydrated, well-nourished in no acute distress. HEENT: Normocephalic, atraumatic, extraocular movements intact. Pupils: Equal reacting to light NECK: Supple, no JVD or bruits. CARDIOVASULAR: Heart: S1, S2 heard, regular without S3-S4 or murmur no rubs or gallops. LUNGS/CHEST: Clear to auscultation bilaterally. No rails, rhonchi, or wheezing. Normal inspection. ABDOMEN: Soft, nontender, with normal bowel sounds. No pulsatile masses. No rebound, rigidity, or guarding. Normal inspection and palpation. EXTREMITIES: Normal inspection and palpation. No edema, clubbing or cyanosis. SKIN: Warm and dry without rashes. Normal inspection. MUSCULOSKELETAL: No cervical, thoracic, lumbar or midline bony tenderness. Normal inspection. NEURO: Alert, awake and oriented x3. Cranial nerves: II through XII grossly intact. Speech and language: Normal with no dysarthria or dysphasia. Motor system: Tone and bulk: Normal: Strength: 5 out of 5 in all 4 extremities; No pronator drift noted. Deep tendon reflexes: 2+ bilaterally symmetrical. Plantar reflex: Downgoing bilaterally. Sensory system: Intact to all modalities of sensation bilaterally. Coordination: Intact to flhguq-xkay-rcfvv and zgid-kzrb-yrib test bilaterally. No ataxia, no dysmetria, or dysdiadochokinesia noted. No intention tremors noted. Gait: Not tested. No signs of meningeal irritation noted. PSYCHIATRIC: Normal mood and affect. Objective Labs 12/26/24 04:50 12/26/24 04:50 Labs: Laboratory Results - last 24 hr 12/24/24 12/24/24 08:31 10:31 WBC 5.6 RBC 4.79 Hgb 14.3 Hct 42.6 MCV 89 MCH 29.9 MCHC 33.6 RDW Std Deviation 43.5 Plt Count 162 Neut % (Auto) 66 Lymph % (Auto) 22 [place] % (Auto) 7 Eos % (Auto) 5 Baso % (Auto) 1 Neut # (Auto) 3.7 Lymph # (Auto) 1.2 [place] # (Auto) 0.4 Eos # (Auto) 0.3 Baso # (Auto) 0.0 Immature Gran # (Auto) 0.01 H Absolute Nucleated RBC 0.00 Immature Gran % 0 Nucleated RBC % 0 PT 10.7 INR 1.0 APTT 27.9 Sodium 138 Potassium 4.9 Chloride 102 Carbon Dioxide 23.2 Anion Gap 13 BUN 76 H Creatinine 5.9 H* Estim Creat Clear Calc 9.1 L eGFR 9 L* BUN/Creatinine Ratio 13 Glucose 166 H Calculated Osmolality 302 H Calcium 9.1 Corrected Calcium 9.1 Magnesium 2.2 Total Bilirubin 0.3 AST 28 ALT 40 Alkaline Phosphatase 105 Troponin I < 0.020 B-Natriuretic Peptide 176 H Total Protein 7.8 Albumin 4.8 Globulin 3.0 Albumin/Globulin Ratio 1.6 Ur Collection Type Clean Catch Urine Color Colorless A Urine Clarity Clear Urine pH 7.5 H Ur Specific [place] 1.010 Urine Protein 2+ A Urine Glucose (UA) 1+ A Urine Ketones Negative Urine Blood Negative Urine Nitrite Negative Urine Bilirubin Negative Urine Urobilinogen (Auto) Negative Ur Leukocyte Esterase Negative Urine RBC 6 H Urine WBC < 1 Ur Squamous Epith Cells 0 Urine Bacteria Rare Ur Culture Indicated? Not Indicated Assessment & Plan Assessment and plan (1) Dizziness: Status: Resolved Assessment and plan: Reassurance given to the patient regarding the negative MRI brain for acute infarction. It only showed moderate chronic white matter changes consistent with underlying diabetes, hypertension hyperlipidemia and chronic kidney disease. Patient is stable for discharge home. (2) End stage renal disease: Status: Chronic Assessment and plan: On dialysis (3) Abnormal gait: Status: Chronic Assessment and plan: Advised him to walk with a walker
[2024-12-25] VITALS (11 sets, daily range): BP systolic 122–138; BP diastolic 67–80; PULSE 56–75; RESP 16–96; TEMP 36.1–37.2; O2SAT 96–99; BMI 28.9
[2024-12-25 06:36] LABS: Anion Gap 12 (7-16); BUN/Creatinine Ratio 9 Ratio (12-20); Blood Urea Nitrogen 38 mg/dL (9-23); Calcium 8.1 mg/dL (8.3-10.6); Carbon Dioxide 27.1 mMol/L (20.0-31.0); Cardiac Risk Estimate 4.5 RATIO (4.0-6.7); Chloride 101 mMol/L (98-107); Cholesterol 170 mg/dL (132-200); Creatinine (Component) 4.4 mg/dL (0.6-1.3); Folate > 24.00 ng/mL (>5.38); Glucose 189 mg/dL (74-106); HDL Cholesterol 38 mg/dL (40-60); LDL Cholesterol,Calculated 111 mg/dL (0-130); Magnesium 2.2 mg/dL (1.6-2.6); Osmolality,Calculated 293 (275-295); Phosphorous 4.5 mg/dL (2.4-5.1); Potassium 4.0 mMol/L (3.4-5.1); Sodium 140 mMol/L (136-145); Triglycerides 106 mg/dL (30-150); Vitamin B12 1441 pg/mL (211-911); eGFR 13 See Note
[2024-12-25 06:41] LABS: Estimated Creatinine Clearance 12.0 mL/min (>60)
[2024-12-25 06:43] LABS: Glucose Estimated Average 180 mg/dL (80-131); Hemoglobin A1C 7.9 % Hgb (4.8-6.0)
[2024-12-25] MEDS: INSULIN LISPRO (AdmeLOG) 1 UNIT/0.01 ML UNIT SC ×2 (07:45→20:24)
[2024-12-25 07:51] LABS: Basophils # (Auto) 0.0 Thou/mm3 (0.0-0.2); Basophils % (Auto) 1 % (0-2.5); Eosinophils # (Auto) 0.3 Thou/mm3 (0.0-0.5); Eosinophils % (Auto) 5 % (0-10); Hematocrit 38.9 % (41.0-53.0); Hemoglobin 13.5 g/dL (13.5-16.0); Immature Granulocytes Auto 0.01 Thou/mm3 (0.00-0.00); Lymphocytes # (Auto) 1.3 Thou/mm3 (1.0-4.8); Lymphocytes % (Auto) 26 % (10-50); Mean Corpuscular HGB Conc 34.7 g/dl (31.0-37.0); Mean Corpuscular Hemoglobin 29.9 pg (25.0-35.0); Mean Corpuscular Volume 86 fL (80-100); Monocytes # (Auto) 0.5 Thou/mm3 (0.0-0.8); Monocytes % (Auto) 10 % (0-12); Neutrophils # (Auto) 2.9 Thou/mm3 (1.8-7.7); Neutrophils % (Auto) 57 % (37-80); Nucleated Red Blood Cell # 0.00 Thou/mm3 (0.00-0.00); Nucleated Red Blood Cell % 0 /100 WBC (0); Platelet Count 152 Thou/mm3 (140-440); RDW Standard Deviation 42.4 fL (35.1-43.9); Red Blood Count 4.52 Miln/mm3 (4.50-5.90); White Blood Count 5.1 Thou/mm3 (3.8-10.6)
[2024-12-25] MEDS: ASPIRIN EC 81 MG TABEC PO (09:37)
[2024-12-25] MEDS: CLOPIDOGREL BISULFATE 75 MG TABLET PO (09:37)
[2024-12-25] MEDS: HEPARIN SOD INJ 5000 UNIT/ML VIAL SC ×2 (09:43→20:09)
--- NOTE | 2024-12-25 14:00 | PD.RESDS ---
Planned Discharge Date 12/25/24 DS: Providers Provider Date of admission: 12/24/24 13:28 Primary care physician: Physician No Primary/Family Admitting Provider: Adriano Gallagher MD Attending Provider on Admission: Adriano Gallagher MD Consults: 12/24/24 11:48 Consult to Neurology / Tele-Neurology Stat Comment: Teleneuro Consulting Provider: Kadeem Dewey 12/24/24 14:34 Consult to Nephrology Routine Comment: ESRD needs dialysis Consulting Provider: Marcella Espinosa 12/24/24 18:39 Referral Physical Therapy Routine Comment: Physician Instructions: Referral Speech Therapy Routine Comment: Attending Provider on DC: Adriano Gallagher MD Discharging Provider: Bernardino Cheek MD DS: Diagnosis Problem List Completed Was Problem List Reviewed/Reconciled?: Yes Hospital Course Hospital Course Hospital course: Summary: Patient is a -year-old with a past medical history of who was admitted on with a chief complaint of . Hospital: During patient's hospital course, the main medical diagnoses addressed were . In terms of (medical diagnosis #1), patient had ___ performed. In terms of (medical diagnosis #2), patient had ___ performed. Patient is safe to discharge. Further discharge instructions below. # # # Status at Discharge Cognitive/Behavioral Status at Discharge: stable Functional Status at Discharge: independent ambulation Overall Status at Discharge: patient is back to baseline Patient's care plan was discussed with my attending, Dr. Gallagher, and senior resident, Dr. Stanley. Bernardino Cheek, DO Internal Medicine, PGY-1 Time Spent with Patient Time attestation: Total time spent providing and/or coordinating discharge services: Time spent: Greater than 30 minutes Exam Vital Signs Temp Pulse Resp BP Pulse Ox O2 Del Method 98.5 F 67 18 131/79 H 99 Room Air 12/25/24 11:56 12/25/24 12:00 12/25/24 11:56 12/25/24 11:56 12/25/24 11:56 12/25/24 11:56 Narrative Exam General: Awake and in no acute distress. Conversational and non-toxic appearing. HEENT: Normocephalic, atraumatic, mucous membranes moist. Heart: Regular rate and rhythm, normal S1 and S2, no murmurs. Lungs: Clear to auscultation with no wheezing or crackles. Abdomen: Soft, nondistended, nontender, positive bowel sounds. ?No guarding or rebound tenderness. Neuro Stroke Exam: -Alert and oriented x3. -CN II-XII intact. -Normal visual menjivar. -Normal fluent speech. -No facial droop. -Strength 5/5 bilateral arms, 5/5 production expediter strength. -Strength 5/5 bilateral lower extremities. -Intact sensation bilaterally. -Normal yqflja-ob-pkts, normal tpav-vx-xvbu testing. Extremities: No edema. Skin: No rash or ecchymoses. Discharge Plan Problem List Was Problem List Reviewed/Reconciled?: Yes Plan Patient condition on transfer: Stable Prescriptions/Referrals Prescriptions/Med Rec: No Action B complex-vitamin C-folic acid [Sabrina-Nakia] 1 tab PO DAILY Patient Comments: TOME 1 TABLETA POR VIA ORAL TODOS LOS ROUSE FOR 90 ROUSE Rx Instructions: orally daily; amlodipine 10 mg tablet 10 mg PO .QD insulin glargine [Lantus Solostar U-100 Insulin] 100 unit/mL (3 mL) insulin pen See Rx Instructions .ROUTE .COMPLEX Patient Comments: UNSURE DOSAGE BUT DOES NOT TAKE 35 UNITS DUE TO HYPOGLYCEMIC EPISODES Rx Instructions: ORDERED 35 UNITS BUT PER PT DOES NOT TAKE ORDERED furosemide 40 mg Tablet 40 mg PO QDAY atorvastatin 80 mg Tablet 80 mg PO QPM metoprolol succinate 50 mg Tablet Extended Release 24 Hr 50 mg PO QDAY gabapentin 300 mg Capsule 300 mg PO BID insulin lispro [Admelog SoloStar U-100 Insulin] 100 unit/mL insulin pen 1 sliding scale dose subcut USEASDIRECTD Qty: 15 0RF (DME) blood-glucose meter [Accu-Chek Guide Glucose Meter] Misc See Rx Instructions .Route Qty: 1 0RF Rx Instructions: As directed (DME) lancets [Comfort EZ Lancets] 28 gauge misc See Rx Instructions .Route Qty: 100 0RF Rx Instructions: As directed (DME) pen needle, diabetic [BD Ultra-Fine Mini Pen Needle] 31 gauge x 3/16 needle See Rx Instructions .Route Qty: 1200 0RF Rx Instructions: As directed (DME) Accu-Chek Guide test strips Strip See Rx Instructions .Route Qty: 50 0RF Rx Instructions: As directed Referrals: No Primary/Family,Physician [Primary Care Provider] Patient/Caregiver Discharge Instructions Print Language: Upper Sorbian Quality Discharge Quality Measures VTE prophylaxis and stroke
--- NOTE | 2024-12-25 14:42 | PC.PT ---
PT eval only. Patient is safe to ambulate to the bathroom xI with no AD. Patient is safe to ambulate in the halls with 1 staff due to his history of dizziness. RN made aware.
[2024-12-25] MEDS: ATORVASTATIN CALCIUM 20 MG TABLET 80 MG PO (20:09)
--- NOTE | 2024-12-25 20:16 | PC.NURSE ---
MD Zheng made aware that pt BS is 238, no insulin coverage for HS, per MD will put order in.
--- NOTE | 2024-12-25 21:48 | ESPR_ITS ---
Documentation for date of: 12/25/24 Subjective Subjective Interval history: No overnight events. Patient was examined at bedside; they appear A&Ox3 and in NAD. Today, they deny having any of their initial presenting symptoms of dizziness, headache, and feel eager to try and ambulate. Vitals/labs today significant for BUN 76->38, creatinine 5.9->4.4, A1c 7.9, lipid WNL, Vitamin B12 1441, folate >24. Physical exam was unremarkable for any neurological deficits. 12/24 brain MRI with MRA was negative for acute hemorrhage, mass effect or midline shift and 12/24 bubble study was negative. Patient is medically cleared and may not need to be continued on DAPT therapy due to acute ischemic stroke having been ruled out (will consult Neurology regarding this). He was planned to be discharged today but Neurology would like to observe him for a bit longer so his discharge has been deferred for tomorrow. Exam Vital Signs Temp Pulse Resp BP Pulse Ox O2 Del Method 97.5 F 75 17 137/67 H 98 Room Air 12/25/24 20:00 12/25/24 20:00 12/25/24 20:00 12/25/24 20:00 12/25/24 20:00 12/25/24 20:00 Narrative Exam General: Awake and in no acute distress. Conversational and non-toxic appearing. HEENT: Normocephalic, atraumatic, mucous membranes moist. Heart: Regular rate and rhythm, normal S1 and S2, no murmurs. Lungs: Clear to auscultation with no wheezing or crackles. Abdomen: Soft, nondistended, nontender, positive bowel sounds. ?No guarding or rebound tenderness. Neuro Stroke Exam: -Alert and oriented x3. -CN II-XII intact. -Normal visual menjivar. -Normal fluent speech. -No facial droop. -Strength 5/5 bilateral arms, 5/5 trading assistant strength. -Strength 5/5 bilateral lower extremities. -Intact sensation bilaterally. -Normal ebjrcf-tk-joyj, normal mbth-eo-iium testing. Extremities: No edema. Skin: No rash or ecchymoses. Objective Labs 12/26/24 04:50 12/26/24 04:50 Labs: Laboratory Results - last 24 hr 12/25/24 05:04 WBC 5.1 RBC 4.52 Hgb 13.5 Hct 38.9 L MCV 86 MCH 29.9 MCHC 34.7 RDW Std Deviation 42.4 Plt Count 152 Neut % (Auto) 57 Lymph % (Auto) 26 [place] % (Auto) 10 Eos % (Auto) 5 Baso % (Auto) 1 Neut # (Auto) 2.9 Lymph # (Auto) 1.3 [place] # (Auto) 0.5 Eos # (Auto) 0.3 Baso # (Auto) 0.0 Immature Gran # (Auto) 0.01 H Absolute Nucleated RBC 0.00 Immature Gran % 0 Nucleated RBC % 0 Sodium 140 Potassium 4.0 D Chloride 101 Carbon Dioxide 27.1 Anion Gap 12 BUN 38 H Creatinine 4.4 H* D Estim Creat Clear Calc 12.0 L eGFR 13 L* BUN/Creatinine Ratio 9 L Glucose [address] Glu mg/dL 180 H Hemoglobin A1c 7.9 H Calculated Osmolality 293 Calcium 8.1 L Phosphorus 4.5 Magnesium 2.2 Triglycerides 106 Cholesterol 170 LDL Cholesterol, Calc 111 HDL Cholesterol 38 L Cholesterol/HDL Ratio 4.5 Vitamin B12 1441 H Folate > 24.00 Quality Measures Quality Measures stroke Suspected type of Stroke: Non Acute Last known well (date): 12/23/24 Last known well (time): 21:00 Tenecteplase given: Reason(s) Tenecteplase not given: Outside the time window not given Rehab services: PT evaluation ordered and Speech Language Pathology eval ordered VTE Prophylaxis: pharmaceutical Antithrombotic by day 2:: not indicated (describe) Statin ordered: <75 y/o high intensity dose Anticoagulation ordered for A-fib or flutter (current or hx): not indicated Advance care planning discussed with:: patient and child Assessment & Plan Assessment Current Active Medications: Generic Name Dose Route Start Last Admin Trade Name Freq PRN Reason Stop Dose Admin Acetaminophen 650 mg 12/24/24 18:36 Acetaminophen 325 Mg Tablet PO 01/23/25 18:35 Q6H PRN Fever >100.4 or Pain 1-10 Aspirin 81 mg 12/25/24 09:00 12/25/24 09:37 Aspirin Ec 81 Mg Tabec PO 01/24/25 08:59 81 mg QDAY PROSPER Administration Atorvastatin Calcium 80 mg 12/24/24 21:00 12/25/24 20:09 Atorvastatin Calcium 20 Mg Tablet PO 01/23/25 20:59 80 mg HS PROSPER Administration Clopidogrel Bisulfate 75 mg 12/25/24 09:00 12/25/24 09:37 Clopidogrel Bisulfate 75 Mg Tablet PO 01/24/25 08:59 75 mg QDAY PROSPER Administration Dextrose 25 ml 12/24/24 18:39 Dextrose 50%-Water Inj 50 Ml Syringe IV 01/23/25 18:38 Q15MIN PRN BG 50-70 responsive npo pt Dextrose 50 ml 12/24/24 18:39 Dextrose 50%-Water Inj 50 Ml Syringe IV 01/23/25 18:38 Q15MIN PRN BG <50 OR BG <70 & pt unresponsive Glucagon 1 mg 12/24/24 18:39 Glucagon Inj 1 Mg Vial IM Q15MIN PRN BG <70, and no IV access Heparin Sodium (Porcine) 5,000 unit 12/24/24 21:00 12/25/24 20:09 Heparin Sod Inj 5000 Unit/Ml Vial SC 01/07/25 20:59 5,000 unit Q12HR PROSPER Administration Insulin Human Lispro 0 unit 12/25/24 21:00 12/25/24 20:24 Insulin Lispro (Admelog) 1 Unit/0.01 Ml Unit SC 01/24/25 20:59 2 unit ACHS PROSPER Administration Protocol Ondansetron HCl 4 mg 12/24/24 18:36 Ondansetron Inj 2 Mg/Ml Inj 2 Ml IVP 01/23/25 18:35 Q6H PRN NAUSEA OR VOMITING Protocol Plan Turkmen-speaking 74-year-old male with past medical history of ESRD on HD M/W/F, hypertension, type 2 diabetes, afib, unsteady gait who presented to the ED on 12/24/2024 with dizziness and headache along with difficulty ambulating admitted for stroke rule out. #Acute ischemic stroke, ruled out #Ambulatory dysfunction, resolved Patient presented with symptoms of dizziness, occipital headache, and gait abnormalities. CT head was negative for acute abnormalities. NIHSS was 0 on TeleNeuro evaluation MRI/MRA brain and carotids with and without contrast showed no acute infarct, moderate chronic microvascular white matter change, no cerebral large vessel arterial occlusions -Neurologist Dr. Dewey was consulted and will follow, appreciate recommendations -Admitted to Telemetry -Head of bed elevation >30 degrees -Maintain euglycemia and normal temperature -Allow for permissive hypertension below 220/120 with 25% reduction goal in first 24 hours - held home BP meds -Q4H neuro checks -Nurse swallow screen -Speech evaluation -PT evaluation -Echocardiography with bubble study ordered, negative -Hemoglobin A1c 7.9 -Lipid panel WNL -Vitamin B12 level, high at 1441 -Aspirin 81 mg daily -Plavix 75 mg daily -Atorvastatin 80 mg HS daily #ESRD on HD M/W/F Patient follows with Dr. Espinosa -Consulted Dr. Espinosa for dialysis continuation #History of insulin dependent type 2 diabetes On admission initial glucose 166. Last A1c 6.4. Patient takes insulin for diabetes at home. -Bedside blood glucose checks ACHS -Insulin lispro sliding scale step 1, adjusted as necessary -Carb consistent low diet -A1c 7.9 #History of afib Not on AC due to history of ulcers and GI bleed. #History of hypertension Holding home meds for permissive HTN. DVT prophylaxis: Heparin 5,000 U subQ GI prophylaxis: Not indicated Diet: Carb consistent, cardiac Fontanez: None Lines: Peripheral IV Antibiotics: None CODE STATUS: FULL Reason for hospitalization: Dizziness, stroke rule out Patient plan of care was discussed with the attending physician, Dr. Elliott Cheek, DO PGY-1 Attending Provider Attestation/Addendum I have examined the patient, reviewed labs and imaging findings, discussed the case with the resident(s), and reviewed entered orders. I agree with the plan of care as outlined in this note. Dr. Elliott MD
--- NOTE | 2024-12-25 22:58 | PC.NURSE ---
MD Dewey called and get update for the pts and she said to see pt in AM.
[2024-12-26] VITALS (21 sets, daily range): BP systolic 115–159; BP diastolic 63–82; PULSE 57–79; RESP 17–98; TEMP 36.2–37.1; O2SAT 95–98; BMI 28.9
[2024-12-26 06:25] LABS: Basophils # (Auto) 0.0 Thou/mm3 (0.0-0.2); Basophils % (Auto) 1 % (0-2.5); Eosinophils # (Auto) 0.4 Thou/mm3 (0.0-0.5); Eosinophils % (Auto) 6 % (0-10); Hematocrit 38.7 % (41.0-53.0); Hemoglobin 12.9 g/dL (13.5-16.0); Immature Granulocytes Auto 0.01 Thou/mm3 (0.00-0.00); Lymphocytes # (Auto) 1.6 Thou/mm3 (1.0-4.8); Lymphocytes % (Auto) 26 % (10-50); Mean Corpuscular HGB Conc 33.3 g/dl (31.0-37.0); Mean Corpuscular Hemoglobin 29.3 pg (25.0-35.0); Mean Corpuscular Volume 88 fL (80-100); Monocytes # (Auto) 0.7 Thou/mm3 (0.0-0.8); Monocytes % (Auto) 12 % (0-12); Neutrophils # (Auto) 3.5 Thou/mm3 (1.8-7.7); Neutrophils % (Auto) 56 % (37-80); Nucleated Red Blood Cell # 0.00 Thou/mm3 (0.00-0.00); Nucleated Red Blood Cell % 0 /100 WBC (0); Platelet Count 148 Thou/mm3 (140-440); RDW Standard Deviation 44.2 fL (35.1-43.9); Red Blood Count 4.40 Miln/mm3 (4.50-5.90); White Blood Count 6.2 Thou/mm3 (3.8-10.6)
[2024-12-26 06:46] LABS: Calcium 8.0 mg/dL (8.3-10.6); Chloride 102 mMol/L (98-107); Potassium 4.2 mMol/L (3.4-5.1); Sodium 138 mMol/L (136-145)
[2024-12-26 06:48] LABS: Creatinine (Component) 6.1 mg/dL (0.6-1.3); Estimated Creatinine Clearance 8.7 mL/min (>60); eGFR 9 See Note
[2024-12-26 07:00] LABS: Anion Gap 14 (7-16); Blood Urea Nitrogen 67 mg/dL (9-23); Carbon Dioxide 22.3 mMol/L (20.0-31.0); Glucose 120 mg/dL (74-106); Osmolality,Calculated 296 (275-295)
[2024-12-26 07:10] LABS: BUN/Creatinine Ratio 11 Ratio (12-20)
--- NOTE | 2024-12-26 08:10 | PC.NURSE ---
Pt was taken to dialysis at this time will resume care when pt returns
--- NOTE | 2024-12-26 11:38 | ESDS_ITS ---
<Statement entered by Nancy Stanley MD - 12/27/24 14:28> Patient was seen and examined by me personally. I have reviewed the below documentation by the team resident and agree with its findings with any exceptions as below. Discharge plan was discussed with the attending, Dr. Gallagher. Nancy Stanley, PGY-3 Planned Discharge Date 12/26/24 DS: Providers Provider Date of admission: 12/24/24 13:28 Primary care physician: Physician No Primary/Family Admitting Provider: Adriano Gallagher MD Attending Provider on Admission: Adriano Gallagher MD Consults: 12/24/24 11:48 Consult to Neurology / Tele-Neurology Stat Comment: Teleneuro Consulting Provider: Kadeem Dewey 12/24/24 14:34 Consult to Nephrology Routine Comment: ESRD needs dialysis Consulting Provider: Marcella Espinosa 12/24/24 18:39 Referral Physical Therapy Routine Comment: Physician Instructions: Referral Speech Therapy Routine Comment: Attending Provider on DC: Adriano Gallagher MD Discharging Provider: Bernardino Cheek MD DS: Diagnosis Problem List Completed Was Problem List Reviewed/Reconciled?: Yes Hospital Course Hospital Course Hospital course: Summary: Patient is a Slovak-speaking 74-year-old male with past medical history of ESRD on HD M/W/F, hypertension, type 2 diabetes, AFib, unsteady gait who presented to the ED on 12/24/2024 with dizziness and headache along with difficulty ambulating that was first noted when the patient woke up at 6:00 am and still persistent since coming into the ED. Hospital: During patient's hospital course, he was placed on stroke protocol without TNK administration (outside of time window) and started on aspirin and atorvastatin due to his stroke-like symptoms. Head CT, MRI/MRA brain, bubble study, and vitam in B12 level were ultimately negative (vitamin B12 levels were actually high at 1441). Patient was deemed clinically stabilized on 12/26 and given a session of inpatient hemodialysis before being discharged back home. Patient is safe to discharge. Further discharge instructions below. Discharge Recommendations: -Follow up with PCP within 1 week of discharge -Continue rest of medications as previously prescribed -Continue taking aspirin 81 mg by mouth once per day -Continue taking atorvastatin 40 mg by mouth once per day -Return to the ED or call EMS if symptoms return and/or worsen. Hospital Diagnoses: #Acute ischemic stroke, ruled out #Ambulatory dysfunction, resolved #ESRD on HD M/W/F #History of insulin dependent type 2 diabetes #History of afib #History of hypertension Status at Discharge Cognitive/Behavioral Status at Discharge: stable Functional Status at Discharge: independent ambulation Overall Status at Discharge: patient is back to baseline Patient's care plan was discussed with my attending, Dr. Gallagher, and senior resident, Dr. Stanley. Bernardino Cheek, DO Internal Medicine, PGY-1 Time Spent with Patient Time attestation: Total time spent providing and/or coordinating discharge services: Time spent: Greater than 30 minutes Exam Vital Signs Temp Pulse Resp BP Pulse Ox O2 Del Method 97.1 F 70 18 159/82 H 96 Room Air 12/26/24 11:34 12/26/24 11:34 12/26/24 11:34 12/26/24 11:34 12/26/24 11:34 12/26/24 08:00 Narrative Exam General: Awake and in no acute distress. Conversational and non-toxic appearing. HEENT: Normocephalic, atraumatic, mucous membranes moist. Heart: Regular rate and rhythm, normal S1 and S2, no murmurs. Lungs: Clear to auscultation with no wheezing or crackles. Abdomen: Soft, nondistended, nontender, positive bowel sounds. ?No guarding or rebound tenderness. Neuro Stroke Exam: -Alert and oriented x3. -CN II-XII intact. -Normal visual menjivar. -Normal fluent speech. -No facial droop. -Strength 5/5 bilateral arms, 5/5 running instructor strength. -Strength 5/5 bilateral lower extremities. -Intact sensation bilaterally. -Normal etczpd-tg-tmsw, normal uyrh-ql-jvpx testing. Extremities: No edema. Skin: No rash or ecchymoses. Discharge Plan Plan Patient Disposition: HOME (Self Care) Patient condition on transfer: Stable Care Plan Goals: Reason for hospitalization: Discharge Recommendations: -Follow up with PCP within 1 week of discharge -Continue rest of medications as previously prescribed -Return to the ED or call EMS if symptoms return and/or worsen. Hospital Diagnoses: Prescriptions/Referrals Prescriptions/Med Rec: New aspirin 81 mg Tablet,Delayed Release (Dr/Ec) 81 mg PO QDAY 30 Days Qty: 30 2RF Continued B complex-vitamin C-folic acid [Sabrina-Nakia] 1 tab PO DAILY Patient Comments: TOME 1 TABLETA POR VIA ORAL TODOS LOS ROUSE FOR 90 ROUSE Rx Instructions: orally daily; amlodipine 10 mg tablet 10 mg PO .QD insulin glargine [Lantus Solostar U-100 Insulin] 100 unit/mL (3 mL) insulin pen See Rx Instructions .ROUTE .COMPLEX Patient Comments: UNSURE DOSAGE BUT DOES NOT TAKE 35 UNITS DUE TO HYPOGLYCEMIC EPISODES Rx Instructions: ORDERED 35 UNITS BUT PER PT DOES NOT TAKE ORDERED atorvastatin 80 mg Tablet 80 mg PO QPM 30 Days Qty: 30 2RF furosemide 40 mg Tablet 40 mg PO QDAY metoprolol succinate 50 mg Tablet Extended Release 24 Hr 50 mg PO QDAY gabapentin 300 mg Capsule 300 mg PO BID insulin lispro [Admelog SoloStar U-100 Insulin] 100 unit/mL insulin pen 1 sliding scale dose subcut USEASDIRECTD Qty: 15 0RF (DME) blood-glucose meter [Accu-Chek Guide Glucose Meter] Misc See Rx Instructions .Route Qty: 1 0RF Rx Instructions: As directed (DME) lancets [Comfort EZ Lancets] 28 gauge misc See Rx Instructions .Route Qty: 100 0RF Rx Instructions: As directed (DME) pen needle, diabetic [BD Ultra-Fine Mini Pen Needle] 31 gauge x 3/16 needle See Rx Instructions .Route Qty: 1200 0RF Rx Instructions: As directed (DME) Accu-Chek Guide test strips Strip See Rx Instructions .Route Qty: 50 0RF Rx Instructions: As directed Referrals: No Primary/Family,Physician [Primary Care Provider] Patient/Caregiver Discharge Instructions Print Language: Slovak Stand Alone Forms: [facility] Award Info., Patient Portal Info Letter, Work/Release Restrictions Discharge Order Discharge Orders: Discharge (Routine); Ordered 12/26/24 Ordered By: Nancy Stanley Quality Discharge Quality Measures VTE prophylaxis and stroke Statin ordered >75 y/o:moderate or high intensity dose on DC: n/a Statin ordered <75 y/o: high intensity dose on DC: yes Statin not ordered due to:: not indicated Anticoagulation ordered for A-fib or flutter (current or hx): not indicated Antithrombotic ordered on DC: not indicated (describe) Attestestation MD Attestation I have examined the patient, reviewed labs and imaging findings, discussed the case with the resident(s), and reviewed entered orders. I agree with the plan of care as outlined in this note. Time Spent: [address] Elliott MD
--- NOTE | 2024-12-26 22:37 | ESCONSULT_ITS ---
RE: COLBY LEÓN : 1950 DATE OF CONSULTATION: 12/26/2024 REASON FOR REFERRAL: ESRD management. REFERRING PHYSICIAN: Dr. Stanley HISTORY OF PRESENT ILLNESS: This patient is a 74-year-old Romansh- speaking only gentleman with past medical history significant for type 2 diabetes, hypertension, ESRD, on dialysis, every Sunday, Sunday, and Sunday since 04/2023, who presented to emergency room on 12/24/2024 with weakness. Patient was having difficulty getting up from the bed and also walking. He was admitted on 12/24/2024 to rule out CVA. He had a brain MRI on 12/24/2024, which did not reveal any intracranial abnormality. It was negative for acute hemorrhage, mass effect, or midline shift. A head CT without contrast was also done on the same day, which again did not reveal any acute hemorrhage, mass effect, or midline shift. Patient also had a 2D echocardiogram done, which revealed a normal-sized left ventricle with an ejection fraction of 60%-65%. Patient had some physical therapy while in the hospital and was able to walk a little bit. Weakness improved over time. Patient was also dialyzed on the day of admission as he usually dialyzes every Sunday, Sunday, and Sunday. He is currently on dialysis. He denies any weakness at the moment. He, however, said that he still has a hard time walking. He said that he walked with the physical therapist earlier and was able to walk a little bit. PAST MEDICAL HISTORY: Atrial fibrillation with RVR, ESRD, hemodialysis, type 2 diabetes, and hypertension. PAST SURGICAL HISTORY: AV fistula placement. CURRENT MEDICATIONS: At home include: 1. Amlodipine. 2. Aspirin. 3. Atorvastatin. 4. Sabrina-Nakia. 5. Gabapentin. 6. Lantus. 7. Metoprolol 50 mg daily. PHYSICAL EXAMINATION: Awake, alert, oriented, currently on dialysis. Blood pressure of 154/80, temperature 97.6. I was not able to examine the patient as this is a telehealth visit. LABORATORY DATA: Hemoglobin 12.9, WBC 6200, platelet count 148,000. Sodium 138, potassium 4.2, chloride 102, CO2 22.3, BUN 67, creatinine 6.1, glucose 120, calcium 8. ASSESSMENT: 1. End-stage renal disease. 2. Weakness. 3. Type 2 diabetes. 4. History of hypertension. PLAN: Patient is currently on dialysis and tolerating it well. He will be discharged today and I will refer him to home health for physical therapy at home. Patient will be dialyzed again on Sunday, which is his regular dialysis day. DT: 22:13:56 TT: 22:36:00 Ref: [id number] - TID: [id number] [facility]
== END 2024-12-26 15:34 | disposition home or self-care (01) ==
LOC: SERX 12:29 → S3NX 12-25 06:09 → SERHOLD 12-25 14:23 → S3NX 12-25 14:23 → S2NX 12-25 14:23
PROVIDERS: Nurse Practitioner Primary Care; Student in an Organized Health Care Education/Training Program; Admitting Provider Student in an Organized Health Care Education/Training Program; Emergency Provider Family Medicine; Visit Provider Student in an Organized Health Care Education/Training Program
DX: R42 Dizziness and giddiness (principal); N18.6 End stage renal disease; R26.9 Unspecified abnormalities of gait and mobility; E11.22 Type 2 diabetes mellitus with diabetic chronic kidney disease; I50.32 Chronic diastolic (congestive) heart failure; I13.2 Hypertensive heart and chronic kidney disease with heart failure and with stage 5 chronic kidney disease, or end stage renal disease; I48.20 Chronic atrial fibrillation, unspecified; E78.5 Hyperlipidemia, unspecified; Z99.2 Dependence on renal dialysis; R51.9 Headache, unspecified
CPT/HCPCS: 36415; 70450; 70544; 80048; 80053; 80061; 81001; 82607; 82746; 83036; 83735; 83880; 84100; 84484; 85025; 85610; 85730; 87081; 90935; 92610; 93005; 93306; 96372; 97162; 99283; G0378; J1644; J1815; A9270; G0257